=== PATIENT | female | born 1935 | race Caucasian/White ===

== ENCOUNTER 2020-06-23 12:02 | Outpatient (CLI) | payer MEDICARE, SELFPAY ==
--- NOTE | ~2020-06-23 | US_ITS ---
EXAMINATION: US retroperitoneal comp DATE: 06/23/2020 12:43 INDICATION: Hematuria TECHNIQUE: Multiple grayscale and Doppler ultrasound images of the kidneys were obtained. COMPARISON: None. FINDINGS: The right kidney measures 8.5 x 5.2 x 4.6 cm. The left kidney measures 10.2 x 4.3 x 5.2 cm. The kidneys demonstrate increased parenchymal echogenicity. There is no hydronephrosis. The bladder is incompletely distended. IMPRESSION: 1. Medical renal disease. No correlate for hematuria. Reviewed, dictated and finalized at location A.
== END 2020-06-23 12:03 | disposition home or self-care (01) ==
LOC: CHSIMG 12:09
PROVIDERS: PCP Internal Medicine; Visit Provider Internal Medicine
DX: R31.9 Hematuria, unspecified (principal)
CPT/HCPCS: 76770

== ENCOUNTER 2021-02-04 11:03 | Outpatient (NON) | payer MEDICARE, SELFPAY ==
[2021-02-04 11:27] LABS: Basophils Absolute Auto 0.07 K/mm3 (0.00-0.10); Basophils Percent Auto 0.6 % (0.0-1.0); Eosinophils Absolute Auto 0.49 K/mm3 (0.02-0.50); Eosinophils Percent Auto 4.3 % (1.0-6.0); Hematocrit 42.6 % (35.0-42.0); Hemoglobin 14.7 g/dL (11.7-13.8); Immature Granulocyte Absolute 0.03 K/mm3 (0.00-0.00); Immature Granulocyte Percent A 0.3 % (0.0-0.0); Lymphocytes Absolute Auto 3.99 K/mm3 (1.10-4.50); Lymphocytes Percent Auto 35.3 % (18.0-42.0); Mean Corpuscular HGB Conc 34.5 g/dL (32.0-36.0); Mean Corpuscular Hemoglobin 32.7 pg (27.0-31.0); Mean Corpuscular Volume 94.9 fL (78.0-102.0); Mean Platelet Volume 10.4 fl (9.2-11.8); Monocytes Absolute Auto 0.92 K/mm3 (0.10-0.90); Monocytes Percent Auto 8.1 % (2.0-11.0); Neutrophils Absolute Auto 5.8 K/mm3 (1.7-7.2); Neutrophils Percent Auto 51.4 % (50.0-70.0); Platelet Count Result 264 K/mm3 (150-420); Red Blood Count 4.49 M/mm3 (4.20-5.40); Red Cell Distribution Width 13.9 % (11.6-14.4); White Blood Count 11.3 K/mm3 (4.8-10.8)
[2021-02-04 11:56] LABS: Hemoglobin A1C 5.9 % (<5.7)
[2021-02-04 12:08] LABS: Alanine Aminotransferase 27 U/L (14-59); Albumin Level 3.9 g/dL (3.4-5.0); Alkaline Phosphatase 60 U/L (46-116); Anion Gap 9 mmol/L (8-16); Aspartate Amino Transferase 21 U/L (15-37); Bilirubin,Total 0.8 mg/dL (0.00-1.00); Blood Urea Nitrogen 15 mg/dL (7-18); Carbon Dioxide 30 mmol/L (21-32); Chloride 99 mmol/L (98-108); Cholesterol 169 mg/dL (0-200); Creatine Kinase 68 U/L (26-192); Estimated Glomerular Filt Rate 58; Free T4 Free Thyroxine 1.08 ng/dL (0.76-1.46); Glucose 83 mg/dL (70-99); HDL Direct 86 mg/dL (40-60); LDL Cholesterol Calculated 70 mg/dL (<130); Osmolality Calculated 285 mOsm/kg (285-295); Potassium 4.2 mmol/L (3.5-5.1); Sodium 138 mmol/L (136-145); Total Protein 7.1 g/dL (6.4-8.2); Triglycerides 65 mg/dL (0-150)
== END 2021-02-04 11:04 ==
LOC: CHSLAB 11:04
PROVIDERS: Visit Provider Internal Medicine
DX: E78.5 Hyperlipidemia, unspecified (principal); R73.01 Impaired fasting glucose
CPT/HCPCS: 36415; 80053; 80061; 82550; 83036; 84439; 84443; 85025

== ENCOUNTER 2021-02-08 15:57 | Outpatient (NON) | payer MEDICARE, SELFPAY ==
[2021-02-08 16:17] LABS: Add Urine Microscopic? YES; Appearance Urine Cloudy (Clear); Bilirubin Urine Negative (Negative); Blood Urine 3+ (Negative); Color Urine Yellow (Yellow); Glucose Urine UA Negative (Negative); Ketones Urine Negative (Negative); Leukocyte Esterase Ur Trace LEU/UL (Negative); Nitrate Urine Negative (Negative); Protein Urine Trace (Negative); Specific Grav Ur 1.025 (1.010-1.020); Urobilinogen Urine 0.2 mg/dL (0.2-1.0)
[2021-02-08 16:44] LABS: RBC Urine >75 /hpf (0-2); Squamous Epithelial Cell Urine Rare /hpf (Few); WBC Urine 0-3 /hpf (0-3)
[2021-02-08 16:45] LABS: Bacteria Urine Trace /hpf
[2021-02-08 17:04] LABS: MALB Creatinine Ratio 78.8 mg/g (0-30); Microalbumin Urine Random 99.7 mg/L
== END 2021-02-08 15:58 ==
PROVIDERS: Visit Provider Internal Medicine
DX: E78.5 Hyperlipidemia, unspecified (principal); R73.01 Impaired fasting glucose
CPT/HCPCS: 81001; 82043

== ENCOUNTER 2021-02-11 16:00 | Outpatient (CLI) | payer MEDICARE, SELFPAY ==
--- NOTE | ~2021-02-11 | CT_ITS ---
EXAMINATION: CT abdomen pelvis wo/w con DATE: 02/11/2021 16:54 INDICATION: Hematuria TECHNIQUE: Computed tomography (CT) of the abdomen and pelvis was performed without and subsequently with 130 cc Omnipaque 350 intravenous contrast. Automated exposure control and iterative reconstructi on technique were employed. Exam dose: 1222.14 mGy-cm total exam DLP. COMPARISON: January 02, 2017 CT abdomen pelvis with IV contrast material FINDINGS: Fat-containing right foramen of Bochdalek hernia. Emphysematous changes are suggested in the lower lung zones, as well as possible mild changes of usua l interstitial pneumonia. Up to 4.5 cm descending thoracic aortic aneurysm. There is prominent calcification of the ascending a charla. Pacemaker leads are noted in the right atrium and right ventricle. Borderline heart size. No pericard ial or pleural effusion. Small sliding hiatal hernia. The liver, gallbladder, bile ducts, pancreas, pancreatic duct and spleen are unremarkable. Normal morphology of the adrenal glands. Occasional bilateral small renal cysts. No suspicious renal space occupying mass lesion is detected. No apparent filling defect of the renal collecting systems, ureters or urinary bladder. No bladder wa ll thickening. No urinary tract calculus or hydroureteronephrosis is evident. There are numerous diverticula of the sigmoid and descending colon and occasional transverse and asce nding colon diverticula. No CT evidence of diverticulitis. Normal appendix. No bowel obstruction, bow el wall thickening, pneumatosis or intraperitoneal free air is evident. The urinary bladder is unremarkable. Status post hysterectomy. Right hip arthroplasty. There is extensive calcification of the abdominal aorta and iliac arteries. There is calcification at the origins of the renal arteries. No abdominal aortic aneurysm. No intraperitoneal or retroperitoneal or pelvic mass lesion or adenopathy or ascites. Small fat-containing umbilical hernia. Scoliosis and severe degenerative disc disease of the lumbar spine. Grade 1 anterolisthesis at L2-3. Right hip total arthroplasty. IMPRESSION: No cause for hematuria identified Probable small renal cysts Descending thoracic aortic aneurysm Small sliding hiatal hernia Diverticulosis of the left and to a lesser extent right colon; no CT evidence of diverticulitis Status post hysterectomy Status post right hip arthroplasty Reviewed, dictated and finalized at Location A. Reviewed, dictated and finalized at location B. IMPRESSION: No cause for hematuria identified Probable small renal cysts Descending thoracic aortic aneurysm Small sliding hiatal hernia Diverticulosis of the left and to a lesser extent right colon; no CT evidence o f diverticulitis Status post hysterectomy Status post right hip arthroplasty
== END 2021-02-11 16:01 | disposition home or self-care (01) ==
LOC: CHSLAB 16:04
PROVIDERS: PCP Internal Medicine; Visit Provider Internal Medicine
DX: R31.9 Hematuria, unspecified (principal); K57.30 Diverticulosis of large intestine without perforation or abscess without bleeding
CPT/HCPCS: 74178; Q9967

== ENCOUNTER 2021-02-15 10:14 | Outpatient (NON) | payer MEDICARE, SELFPAY ==
[2021-02-15 11:43] LABS: Vitamin B12 786 pg/mL (193-986)
== END 2021-02-15 10:15 ==
PROVIDERS: Visit Provider Internal Medicine
DX: E53.8 Deficiency of other specified B group vitamins (principal); R31.9 Hematuria, unspecified
CPT/HCPCS: 36415; 82607; 88112

== ENCOUNTER 2021-04-28 16:35 | Emergency (ER) | payer MEDICARE, SELFPAY ==
[2021-04-28 17:10] VITALS: BP 168/75; PULSE 77; RESP 16; TEMP 36.6; O2SAT 94
[2021-04-28 17:15] VITALS: PULSE 67
--- NOTE | 2021-04-28 17:15 | ECG_ITS ---
Measurements Intervals [place] Rate: 67 P: [place]: 0 QRS: -33 QRSD: 78 T: 69 QT: 390 QTc: 414 Interpretive Statements ELECTRONIC VENTRICULAR PACEMAKER WITH INHIBTION UNDERLYING ATRIAL FIBRILLATION LEFT AXIS DEVIATION ANTEROSEPTAL INFARCT, AGE INDETERMINATE INFERIOR INFARCT, AGE INDETERMINATE BASELINE ARTIFACT- II, III, AVF ABNORMAL ECG Electronically Signed On 04-28-2021 20:48:43 CDT by Emanuel Brandon D.O.
--- NOTE | 2021-04-28 17:18 | ED.GENADULT ---
HPI - General Adult General Chief complaint: Weakness Stated complaint: sent from [facility] for weakness. Source: patient Mode of arrival: ambulatory Limitations: no limitations History of Present Illness HPI narrative: Regina is an 85F that was sent over from the [facility] for weakness. She states that for the last two weeks she has no zip. She was so weak she could not go to get her pacemaker checked out yesterday. She is not very aware of her health history and does not know why she is on the meds she is on or why she has the pacemaker. She denies headache, vision changes, palpitations, CP, SOB, abdominal pain, nausea, vomiting, diarrhea, constipation, dysuria, hematuria and falls. Despite feeling weak she states that she has been able to feed herself, and ambulate to the toilet using her walker. She also thinks she is able to bath herself. Related Data Home Medications Medication Instructions Recorded Confirmed apixaban [Eliquis] 5 mg PO DAILY 04/28/21 04/28/21 bupropion HCl 100 mg PO DAILY 04/28/21 04/28/21 losartan 50 mg PO DAILY 04/28/21 04/28/21 metoprolol tartrate 25 mg PO BID 04/28/21 04/28/21 multivit with min-folic acid 1 tablet PO DAILY 04/28/21 04/28/21 [Adult One Daily Multivitamin] primidone 50 mg PO HS 04/28/21 04/28/21 rosuvastatin 10 mg PO DAILY 04/28/21 04/28/21 Allergies Allergy/AdvReac Type Severity Reaction Status Date / Time No Known Allergies Allergy Verified 06/11/15 14:52 Review of Systems Constitutional: Constitutional: Denies chills, Reports fatigue, Denies fever(s) and Reports weakness Eyes: Eyes: Reports no additional eye complaints ENT: Reports system reviewed and no additional complaints, except as documented Cardiovascular: Cardiovascular: Reports no additional cardiovascular complaints Respiratory: Respiratory: Reports no additional respiratory complaints Gastrointestinal: Gastrointestinal: Reports no additional gastrointestinal complaints Genitourinary: Genitourinary: Reports no additional female genitourinary complaints Musculoskeletal: Musculoskeletal: Reports no additional musculoskeletal complaints Integumentary/Breasts: Skin/Breast: Reports system reviewed and no additional complaints, except as docu Neurologic: Reports system reviewed and no additional complaints, except as documented Psychiatric: Psychiatric: Reports no additional psychiatric complaints Endocrine: Endocrine: Reports no additional endocrine complaints Hematologic/Lymphatic: Hematologic/Lymphatic: Reports no additional hematologic/lymphatic complaints Allergic/Immunologic: Allergic/Immunologic: Reports no additional allergic/immunologic complaints Exam Const: General: no acute distress Orientation/consciousness: patient oriented x3 HENMT: Head: normal to inspection Other: atrauamtic Eyes: Conjunctivae: conjunctivae normal Pupils: Equal, round and reactive pupils present Neck: Neck: normal visual inspection Chest: Chest palpation & inspection: normal inspection of the chest Resp: Effort & Inspection: normal respiratory effort Auscultation: clear to auscultation bilaterally Cardio: Rate: regular rate Rhythm: regular rhythm Heart sounds: no murmurs GI: Inspection: non-distended GI Palp: Yes Soft to palpation, No Tenderness to palpation present (GI) and No Guarding due to palpation present (GI) : General: Yes no CVA tenderness Skin: General skin exam: normal color Rashes: no rashes Neuro: General: patient oriented x3, moves all extremities, no focal motor deficits and CN's II-XI intact bilaterally Speech: normal speech Other: 5/5 strength in the upper extremities. 5/5 strength in the lower extremities. normal finger to nose. normal rapid alternating movements Extrem: General: normal to inspection Psych: Appearance: grossly normal Mental Status: mental status grossly normal Thought content: Yes Normal thought content present Course Course Emergency Course: ordered labs and E
[2021-04-28 17:39] LABS: Basophils Absolute Auto 0.07 K/mm3 (0.00-0.10); Basophils Percent Auto 0.6 % (0.0-1.0); Eosinophils Absolute Auto 0.43 K/mm3 (0.02-0.50); Eosinophils Percent Auto 3.9 % (1.0-6.0); Hematocrit 42.9 % (35.0-42.0); Hemoglobin 13.8 g/dL (11.7-13.8); Immature Granulocyte Absolute 0.05 K/mm3 (0.00-0.00); Immature Granulocyte Percent A 0.5 % (0.0-0.0); Lymphocytes Absolute Auto 2.69 K/mm3 (1.10-4.50); Lymphocytes Percent Auto 24.6 % (18.0-42.0); Mean Corpuscular HGB Conc 32.2 g/dL (32.0-36.0); Mean Corpuscular Hemoglobin 29.6 pg (27.0-31.0); Mean Corpuscular Volume 91.9 fL (78.0-102.0); Mean Platelet Volume 9.5 fl (9.2-11.8); Monocytes Absolute Auto 0.96 K/mm3 (0.10-0.90); Monocytes Percent Auto 8.8 % (2.0-11.0); Neutrophils Absolute Auto 6.7 K/mm3 (1.7-7.2); Neutrophils Percent Auto 61.6 % (50.0-70.0); Platelet Count Result 270 K/mm3 (150-420); Red Blood Count 4.67 M/mm3 (4.20-5.40); White Blood Count 10.9 K/mm3 (4.8-10.8)
[2021-04-28 17:42] LABS: Appearance Urine Cloudy (Clear); Bilirubin Urine Negative (Negative); Blood Urine 3+ (Negative); Glucose Urine UA Negative (Negative); Ketones Urine Negative (Negative); Leukocyte Esterase Ur Trace (Negative); Nitrate Urine Negative (Negative); Protein Urine 1+ (Negative); Specific Grav Ur 1.025 (1.010-1.020)
[2021-04-28 17:47] LABS: Add Urine Microscopic? YES; Bacteria Urine Trace /hpf; Color Urine Dark Brown (Yellow); RBC Urine >75 /hpf (0-2); Squamous Epithelial Cell Urine Few /hpf (Few)
[2021-04-28 18:05] LABS: Alanine Aminotransferase 25 U/L (14-59); Albumin Level 3.7 g/dL (3.4-5.0); Alkaline Phosphatase 58 U/L (46-116); Anion Gap 9 mmol/L (8-16); Aspartate Amino Transferase 19 U/L (15-37); Bilirubin,Total 0.8 mg/dL (0.00-1.00); Blood Urea Nitrogen 14 mg/dL (7-18); Calcium 9.2 mg/dL (8.5-10.1); Carbon Dioxide 27 mmol/L (21-32); Chloride 99 mmol/L (98-108); Creatine Kinase 64 U/L (26-192); Estimated CRCL calculation 38 ml/min; Estimated Glomerular Filt Rate 52; Glucose 117 mg/dL (70-99); Osmolality Calculated 281 mOsm/kg (285-295); Sodium 135 mmol/L (136-145); Total Protein 7.2 g/dL (6.4-8.2)
[2021-04-28 18:11] LABS: Thyroid Stimulating Hormone 1.27 uIU/mL (0.36-3.74); Troponin I 20.4 ng/L (0.00-60.4)
[2021-04-28] MEDS: NITROFURANTOIN MONOHYD MACROCR 100 MG CAP PO ×2 (18:40→18:50)
[2021-04-28 18:58] VITALS: BP 154/59; PULSE 66; RESP 22; O2SAT 96
== END 2021-04-28 18:50 ==
PROVIDERS: Emergency Provider Family Medicine; PCP Internal Medicine
DX: N39.0 Urinary tract infection, site not specified (principal); E86.0 Dehydration
CPT/HCPCS: 36415; 80053; 81001; 82550; 84443; 84484; 85025; 87086; 93005; 99282; 99284; A9270

== ENCOUNTER 2021-06-16 19:32 | Observation (INO) | payer MEDICARE, SELFPAY ==
[2021-06-16 19:40] VITALS: BP 160/94; PULSE 88; RESP 16; TEMP 36.3; O2SAT 96
--- NOTE | 2021-06-16 19:54 | ECG_ITS ---
Measurements Intervals [place] Rate: 69 P: [place]: 0 QRS: -32 QRSD: 83 T: 83 QT: 420 QTc: 453 Interpretive Statements ELECTRONIC VENTRICULAR PACEMAKER WITH INHIBITION INCOMPLETE RIGHT BUNDLE BRANCH BLOCK BORDERLINE T WAVE ABNORMALITY- ANTERIOR LEADS BASELINE ARTIFACT- II, III, AVL, AVF, V3 NO FURTHER INTERPRETATION IS POSSIBLE BORDERLINE ECG Electronically Signed On 06-17-2021 6:47:42 CDT by Emanuel Brandon D.O.
[2021-06-16 20:19] LABS: Basophils Absolute Auto 0.06 K/mm3 (0.00-0.10); Basophils Percent Auto 0.6 % (0.0-1.0); Eosinophils Absolute Auto 0.31 K/mm3 (0.02-0.50); Eosinophils Percent Auto 3.3 % (1.0-6.0); Immature Granulocyte Absolute 0.04 K/mm3 (0.00-0.00); Immature Granulocyte Percent A 0.4 % (0.0-0.0); Lymphocytes Absolute Auto 2.22 K/mm3 (1.10-4.50); Lymphocytes Percent Auto 23.5 % (18.0-42.0); Mean Corpuscular HGB Conc 33.3 g/dL (32.0-36.0); Mean Corpuscular Hemoglobin 29.7 pg (27.0-31.0); Mean Platelet Volume 9.6 fl (9.2-11.8); Monocytes Absolute Auto 1.05 K/mm3 (0.10-0.90); Monocytes Percent Auto 11.1 % (2.0-11.0); Neutrophils Absolute Auto 5.8 K/mm3 (1.7-7.2); Neutrophils Percent Auto 61.1 % (50.0-70.0); Platelet Count Result 269 K/mm3 (150-420); Red Blood Count 4.72 M/mm3 (4.20-5.40); Red Cell Distribution Width 14.1 % (11.6-14.4); White Blood Count 9.5 K/mm3 (4.8-10.8)
--- NOTE | 2021-06-16 20:20 | ED.GENADULT ---
HPI - General Adult General Chief complaint: Fall Stated complaint: blood in stool Source: patient Mode of arrival: ambulatory Limitations: no limitations History of Present Illness HPI narrative: Regina is an 85F with a PMH of pacemaker (unknown reason why), dementia, HLD, HTN, depression and she is on apixaban (unknown reason why) that presented to the ED from the [facility]. She was found down with blood in the toilet. She does not remember the incident and does not know how she got there. She denies any paint what so ever, nausea, vomiting, GI upset and diarrhea. Related Data Home Medications Medication Instructions Recorded Confirmed apixaban [Eliquis] 5 mg PO DAILY 04/28/21 06/16/21 bupropion HCl 100 mg PO DAILY 04/28/21 06/16/21 losartan 50 mg PO DAILY 04/28/21 06/16/21 metoprolol tartrate 25 mg PO BID 04/28/21 06/16/21 multivit with min-folic acid 1 tablet PO DAILY 04/28/21 06/16/21 [Adult One Daily Multivitamin] primidone 50 mg PO HS 04/28/21 06/16/21 rosuvastatin 10 mg PO DAILY 04/28/21 06/16/21 Allergies Allergy/AdvReac Type Severity Reaction Status Date / Time No Known Allergies Allergy Verified 06/11/15 14:52 Review of Systems Constitutional: Constitutional: Reports no additional constitutional complaints Eyes: Eyes: Reports no additional eye complaints ENT: Reports system reviewed and no additional complaints, except as documented Cardiovascular: Cardiovascular: Reports no additional cardiovascular complaints Respiratory: Respiratory: Reports no additional respiratory complaints Gastrointestinal: Gastrointestinal: Reports no additional gastrointestinal complaints Genitourinary: Genitourinary: Reports no additional female genitourinary complaints Musculoskeletal: Musculoskeletal: Reports no additional musculoskeletal complaints Integumentary/Breasts: Skin/Breast: Reports system reviewed and no additional complaints, except as docu Neurologic: Reports system reviewed and no additional complaints, except as documented Psychiatric: Psychiatric: Reports no additional psychiatric complaints Endocrine: Endocrine: Reports no additional endocrine complaints Hematologic/Lymphatic: Hematologic/Lymphatic: Reports no additional hematologic/lymphatic complaints Allergic/Immunologic: Allergic/Immunologic: Reports no additional allergic/immunologic complaints Exam Const: General: no acute distress and confusion Other: oriented to person and place but now when or why she is hear. HENMT: Head: normal to inspection Other: atrauamtic Eyes: Conjunctivae: conjunctivae normal Pupils: Equal, round and reactive pupils present Neck: Neck: normal visual inspection Other: full active ROM without pain. No midline tenderness Chest: Chest palpation & inspection: normal inspection of the chest Resp: Effort & Inspection: normal respiratory effort Auscultation: clear to auscultation bilaterally Cardio: Rate: regular rate Rhythm: regular rhythm Heart sounds: no murmurs GI: Inspection: non-distended GI Palp: Yes Soft to palpation, No Tenderness to palpation present (GI) and No Guarding due to palpation present (GI) Skin: General skin exam: normal color Rashes: no rashes Neuro: General: patient oriented x3 and moves all extremities Extrem: General: normal to inspection Psych: Appearance: grossly normal Mental Status: mental status grossly normal Course Course Emergency Course: Regina was evaluated. Ordered EKG and labs. EKG showed an iregular rhythm with a rate of 69, and electronic ventricular pacemaker Labs were largely unremarkable except an elevated BNP but she does not appear fluid overloaded. UA was consistent with hemorrhagic UTI. She will be admitted for syncope and collapse as well as UTI. UTI -Ceftriaxone 1g Syncope -cardiac vs vasovagal vs dementia -placed on telemetry HTN -continue losartan and metoprolol Mood -continue bupropion as she appears to be doing well
[2021-06-16 20:30] LABS: INR 1.2; Prothrombin Time 12.4 Seconds (9.50-12.10)
[2021-06-16 20:42] LABS: Alanine Aminotransferase 35 U/L (14-59); Albumin Level 3.6 g/dL (3.4-5.0); Alkaline Phosphatase 63 U/L (46-116); Anion Gap 12 mmol/L (8-16); Aspartate Amino Transferase 36 U/L (15-37); Bilirubin,Total 0.8 mg/dL (0.00-1.00); Blood Urea Nitrogen 12 mg/dL (7-18); Calcium 8.9 mg/dL (8.5-10.1); Carbon Dioxide 26 mmol/L (21-32); Chloride 99 mmol/L (98-108); Estimated CRCL calculation 40 ml/min; Estimated Glomerular Filt Rate > 60; Glucose 109 mg/dL (70-99); NT Pro B Type Natriuretic Pept 1200 pg/mL (0-450); Osmolality Calculated 284 mOsm/kg (285-295); Potassium 3.8 mmol/L (3.5-5.1); Sodium 137 mmol/L (136-145); Troponin I 21.2 ng/L (0.00-60.4)
[2021-06-16 20:56] LABS: Appearance Urine Cloudy (Clear); Bilirubin Urine 1+ (Negative); Blood Urine 3+ (Negative); Glucose Urine UA Negative (Negative); Ketones Urine 2+ (Negative); Leukocyte Esterase Ur Trace (Negative); Nitrate Urine Positive (Negative); Protein Urine 3+ (Negative); Specific Grav Ur 1.025 (1.010-1.020); pH Urine 6.5 (5.0-8.0)
[2021-06-16 21:02] LABS: Add Urine Microscopic? YES; Color Urine Dark Red (Yellow)
[2021-06-16 21:03] LABS: Bacteria Urine 2+ /hpf; RBC Urine >75 /hpf (0-2); Squamous Epithelial Cell Urine None seen /hpf (Few)
[2021-06-16 21:05] LABS: Amphetamine Screen Urine Negative (Negative); Barbiturate Screen Urine Positive (Negative); Benzodiazepines Screen Urine Negative (Negative); Cannabinoid Screen Urine Negative (Negative); Cocaine Screen Urine Negative (Negative); Methadone Screen Urine Negative (Negative); Opiate Screen Urine Negative (Negative); Phencyclidine Screen Urine Negative (Negative)
[2021-06-16 21:17] VITALS: BP 163/70; PULSE 67; O2SAT 95
[2021-06-16 22:29] VITALS: BP 167/82; PULSE 63; RESP 16; O2SAT 96
[2021-06-16 22:45] VITALS: PULSE 84; RESP 20; O2SAT 97
[2021-06-16 23:15] VITALS: BMI 25.9
[2021-06-17] VITALS: BP 163/89; PULSE 73; PULSE 84; RESP 20; TEMP 36; O2SAT 97
--- NOTE | 2021-06-17 00:25 | ADMGEN ---
This patient, Regina Ghosh, was admitted to 2nd Floor Room 226-2. Patient oriented to hospital policies and general routines including ID bracelet, bed and alarms, visiting hours, pain management, procedures, bathroom and other care routines, personal items, smoking policy, room service/diet, and visiting hours. Information on how to activate the Rapid Response Team has been discussed. Patient is encouraged to report perceived risks to care and to ask questions if she does not understand what she is told or what she should do.
[2021-06-17 04:00] VITALS: PULSE 71
--- NOTE | 2021-06-17 06:35 | PC.NURSE ---
Patient came to the unit at 10:30 pm. Completed admission, settled her down for the night. She was able to sleep most of the night, waking up briefly during rounding, but going back to sleep as soon as nurse left. Patient reports that she is comfortable, and is not in any pain. Bedside commode is available, but she has not needed to use it yet tonight.
[2021-06-17 08:00] VITALS: BP 157/77; PULSE 90; RESP 18; TEMP 36.3; O2SAT 95
[2021-06-17 08:25] LABS: Basophils Absolute Auto 0.08 K/mm3 (0.00-0.10); Basophils Percent Auto 0.8 % (0.0-1.0); Eosinophils Absolute Auto 0.44 K/mm3 (0.02-0.50); Eosinophils Percent Auto 4.4 % (1.0-6.0); Hemoglobin 14.7 g/dL (11.7-13.8); Immature Granulocyte Absolute 0.03 K/mm3 (0.00-0.00); Immature Granulocyte Percent A 0.3 % (0.0-0.0); Lymphocytes Absolute Auto 2.38 K/mm3 (1.10-4.50); Lymphocytes Percent Auto 23.6 % (18.0-42.0); Mean Corpuscular HGB Conc 32.7 g/dL (32.0-36.0); Mean Corpuscular Hemoglobin 29.7 pg (27.0-31.0); Mean Corpuscular Volume 90.9 fL (78.0-102.0); Mean Platelet Volume 9.7 fl (9.2-11.8); Monocytes Absolute Auto 0.93 K/mm3 (0.10-0.90); Monocytes Percent Auto 9.2 % (2.0-11.0); Neutrophils Absolute Auto 6.2 K/mm3 (1.7-7.2); Neutrophils Percent Auto 61.7 % (50.0-70.0); Platelet Count Result 249 K/mm3 (150-420); Red Blood Count 4.95 M/mm3 (4.20-5.40); Red Cell Distribution Width 14.3 % (11.6-14.4); White Blood Count 10.1 K/mm3 (4.8-10.8)
[2021-06-17 09:15] VITALS: PULSE 90
[2021-06-17] MEDS: ROSUVASTATIN 10 MG TABLET PO (09:15)
[2021-06-17] MEDS: METOPROLOL TARTRATE 25 MG TABLET PO ×2 (09:15→21:31)
[2021-06-17] MEDS: THERAPEUTIC MULTIVITAMINS/MINERALS TAB (*BKC) 1 TABLET PO (09:15)
[2021-06-17] MEDS: LOSARTAN POTASSIUM 50 MG TABLET PO (09:15)
[2021-06-17] MEDS: buPROPion HCL SR (12HR) 100 MG TABCR PO ×2 (10:02→21:31)
--- NOTE | 2021-06-17 11:58 | PM.SD2 ---
Same Day Admit/Disch: HPI History of Present Illness Chief complaint: syncope hemorragic cystitis <WILBERTO West - Last Filed: 06/17/21 14:30> Narrative: Regina Ghosh is a 85 year old female that presented to our emergency department status post fall with hematuria. Patient has a past medical history of dementia, hypertension, hyperlipidemia, depression, history of DVT and A. fib. Patient notes that she was on the toilet and fell she denies hitting her head or injuring herself. She is unsure what caused her to fall but she does remember falling. Patient vital sign 96.8, 84, 20, 97, 163/89, WBCs 10.1 hemoglobin 14.7 hematocrit 45.0, platelets, INR 1.2, sodium 137, potassium 3.8,, BUN 12, creatinine 0.87, glucose 109, liver function tests within normal limits BNP 1200, UA with protein, ketone, blood, nitrates, bili, urobilinogen, leukocyte esterase, RBCs, WBCs, bacteria, echo placed with incomplete right bundle branch block heart rate of 69 .the patient denies SOB, CP, palpitation, extremity numbness, lightheadedness, dizziness, constipation, diarrhea, chills, or fever. Disposition [facility] the [facility]assisted living Observation Time spent 60 minutes Physical therapy recommends the patient be discharged to rehab versus her assisted living <WILBERTO West - Last Filed: 06/17/21 14:30> [facility] Social History Social History: Social History Smoking status: Former smoker Tobacco type: cigarettes Second hand tobacco smoke exposure: No Alcohol intake: current Drinks per week: 6 Substance use: never Substance use type: does not use Gender identity (if verbalized by the patient): Female Spiritual care concerns: No <WILBERTO West - Last Filed: 06/17/21 14:30> Same Day Admit/Disch: Med Pre-admit Medications Home Medications: Home Medications Medication Instructions Recorded Confirmed Type apixaban [Eliquis] 5 mg PO DAILY 04/28/21 06/16/21 History bupropion HCl 100 mg PO BID 04/28/21 06/17/21 History losartan 50 mg PO DAILY 04/28/21 06/16/21 History metoprolol tartrate 25 mg PO BID 04/28/21 06/16/21 History multivit with min-folic acid 1 tablet PO DAILY 04/28/21 06/16/21 History [Adult One Daily Multivitamin] primidone 50 mg PO HS 04/28/21 06/16/21 History rosuvastatin 10 mg PO DAILY 04/28/21 06/16/21 History <WILBERTO West - Last Filed: 06/17/21 14:30> Exam Narrative: GENERAL: This is a well-nourished, well-developed patient, in no apparent distress. HEAD: normocephalic, atraumatic. EYES: PERRL. Sclera clear/white. Vision is grossly intact. EARS: External ears normal, auditory canals clear and without drainage, TMs normal without perforation. Hearing grossly intact. NOSE: External nose normal with no obvious nasal discharge, nares without redness, no rhinorrhea. THROAT: Mucous membranes moist, posterior pharynx clear. NECK: Neck supple, non-tender without lymphadenopathy, masses or thyromegaly. CARDIOVASCULAR: Regular rate and rhythm without murmurs, gallops, or rubs. RESPIRATORY: Clear to auscultation. Breath sounds equal bilaterally. No wheezes, rales, or rhonchi. GASTROINTESTINAL: Abdomen soft, non-tender, nondistended. Bowel sounds are active. No hepato-splenomegaly, or palpable masses. No guarding. SKIN: warm, intact with no suspicious lesions or rash, good texture and turgor. NEURO: awake, alert, and oriented to person, place and time. There were no obvious focal neurologic abnormalities. Steady gait EXTREMITIES: Normal range of motion. No edema. No calf tenderness. Negative Homans sign bilaterally. BACK: Nontender without deformity or crepitance. No flank tenderness. <WILBERTO West - Last Filed: 06/17/21 14:30> DS: Data Data Completed and Pending Labs on day of discharge: Labs from last 24 hours 06/17/21 06/16/21 06/16/21 08:15 20:14 20:14 WBC 10.1 RB
[2021-06-17 16:00] VITALS: BP 147/84; PULSE 72; RESP 16; TEMP 36.7; O2SAT 95
--- NOTE | 2021-06-17 19:30 | PC.NURSE ---
Patient sitting up in chair. No episodes of syncope or hematuria at this time.
--- NOTE | 2021-06-17 20:30 | PC.NURSE ---
Patient sitting up in chair. No episodes of syncope or hematuria.
[2021-06-17 21:31] VITALS: PULSE 64
[2021-06-17] MEDS: PRIMIDONE 50 MG TABLET PO (21:31)
--- NOTE | 2021-06-17 21:35 | PC.NURSE ---
Patient assisted to be with walker and assist of 1. No hematuria or episodes of syncope.
--- NOTE | 2021-06-17 22:36 | PC.NURSE ---
Patient resting in bed. No episodes of hematuria or syncope.
--- NOTE | 2021-06-17 23:02 | PC.NURSE ---
Bedside report completed. Updated board and pulled patient up in bed. Patient reported that she was not in pain, and was comfortable in bed.
[2021-06-18] VITALS: BP 137/60; PULSE 71; RESP 18; TEMP 37.1; O2SAT 96
--- NOTE | 2021-06-18 01:43 | PC.NURSE ---
Patient sleeping comfortably during rounds.
--- NOTE | 2021-06-18 02:34 | PC.NURSE ---
Patient continues to sleep comfortably on her side.
--- NOTE | 2021-06-18 03:30 | PC.NURSE ---
During rounding, patient was found sitting on the side of the bed. When asked, she reported that she needed to go to the bathroom, but was trying to decide how to do that. She was reminded to use the call light before getting up, to make sure she was safe. Patient stated that she would. Patient used the walker to ambulate to the bedside commode. She urinated approximately 300 mL of urine, that was wine-colored. Patient remarked upon the blood, and stated that that was what she has been dealing with. Patient returned to the bed, and was made comfortable. Patient was going back to sleep.
[2021-06-18 05:38] LABS: Hematocrit 40.8 % (35.0-42.0); Hemoglobin 13.5 g/dL (11.7-13.8); Mean Corpuscular HGB Conc 33.1 g/dL (32.0-36.0); Mean Corpuscular Hemoglobin 29.7 pg (27.0-31.0); Mean Corpuscular Volume 89.7 fL (78.0-102.0); Mean Platelet Volume 9.4 fl (9.2-11.8); Platelet Count Result 239 K/mm3 (150-420); Red Blood Count 4.55 M/mm3 (4.20-5.40); Red Cell Distribution Width 14.3 % (11.6-14.4); White Blood Count 9.3 K/mm3 (4.8-10.8)
[2021-06-18 05:52] LABS: Anion Gap 10 mmol/L (8-16); Blood Urea Nitrogen 9 mg/dL (7-18); Carbon Dioxide 27 mmol/L (21-32); Chloride 102 mmol/L (98-108); Estimated CRCL calculation 45 ml/min; Estimated Glomerular Filt Rate > 60; Glucose 112 mg/dL (70-99); Osmolality Calculated 287 mOsm/kg (285-295); Potassium 3.5 mmol/L (3.5-5.1); Sodium 139 mmol/L (136-145)
--- NOTE | 2021-06-18 06:38 | PC.NURSE ---
Patient slept well last night. She was only up once to use the bedside commode, and went right back to sleep after returning to bed. Patient was able to walk with the walker, although she had some difficulty initially standing up on her own. She appears to be somewhat weak and unsteady. Patient is still sleeping soundly, and appears to be comfortable.
--- NOTE | 2021-06-18 07:46 | P.DS_ITS ---
DS: Admitting Diagnosis Admitting Diagnosis UTI, hemorrhagic cystitis <WILBERTO West - Last Filed: 06/18/21 07:54> DS: Discharge Diagnosis Discharge Diagnosis (1) Acute hemorrhagic cystitis: Code(s): N30.01 - Acute cystitis with hematuria <MARITZA WestC - Last Filed: 06/18/21 07:54> Status: Acute <WILBERTO West - Last Filed: 06/18/21 07:54> Assessment and Plan: * History of hematuria 04/28/2021 and today * Possibly secondary to the use of anticoagulant versus infection versus cancer * Anticoagulant discontinued * Patient hemoglobin hematocrit 14.7/45.0 today 13.5/40.8 <WILBERTO West - Last Filed: 06/18/21 07:54> (2) DVT (deep venous thrombosis): Code(s): I82.409 - Acute embolism and thrombosis of unspecified deep veins of unspecified lower extremity <WILBERTO West - Last Filed: 06/18/21 07:54> Status: Acute <WILBERTO West - Last Filed: 06/18/21 07:54> Assessment and Plan: * Patient previously on Eliquis * Discontinued use of eliquis and start tylenol per pcp * <WILBERTO West - Last Filed: 06/18/21 07:54> (3) Afib: Code(s): I48.91 - Unspecified atrial fibrillation <WILBERTO West - Last Filed: 06/18/21 07:54> Status: Acute <WILBERTO West - Last Filed: 06/18/21 07:54> Assessment and Plan: * Eliquis discontinued will start aspirin 325 daily * HAS-BLED three-point high risk for major bleed * Patient's primary care physician Dr. Dennis will reevaluate on next visit <WILBERTO West - Last Filed: 06/18/21 07:54> (4) HLD (hyperlipidemia): Code(s): E78.5 - Hyperlipidemia, unspecified <WILBERTO West - Last Filed: 06/18/21 07:54> Status: Acute <WILBERTO West - Last Filed: 06/18/21 07:54> Assessment and Plan: * Continue statins <WILBERTO West - Last Filed: 06/18/21 07:54> (5) HTN (hypertension): Code(s): I10 - Essential (primary) hypertension <Hyun Clark WILBERTO - Last Filed: 06/18/21 07:54> Status: Acute <WILBERTO West - Last Filed: 06/18/21 07:54> Assessment and Plan: * Stable * Continue losartan 50 mg and metoprolol 25 mg twice daily <Hyun Clark WILBERTO - Last Filed: 06/18/21 07:54> (6) UTI (urinary tract infection): Code(s): N39.0 - Urinary tract infection, site not specified <Hyun Clark WILBERTO - Last Filed: 06/18/21 07:54> Status: Acute <WILBERTO West - Last Filed: 06/18/21 07:54> Assessment and Plan: * UA with blood, nitrate, leukocyte Estrace, RBCs and WBCs with bacteria * Patient received Rocephin IV will discharge with cefdinir 300 mg x 10 days * Urine culture pending <Hyun Clark WILBERTO - Last Filed: 06/18/21 07:54> DS: Summary Hospital Course Reason for hospitalization: UTI with hematuria <Hyun Clark WILBERTO - Last Filed: 06/18/21 07:54> Hospital Course: Regina Ghosh is a 85 year old female that presented to our emergency department status post fall with hematuria. Patient has a past medical history of dementia, hypertension, hyperlipidemia, depression, history of DVT and A. fib. Patient notes that she was on the toilet and fell she denies hitting her head or injuring herself. She is unsure what caused her to fall but she does remember falling. Patient vital sign 96.8, 84, 20, 97, 163/89, WBCs 10.1 hemoglobin 14.7 hematocrit 45.0, platelets, INR 1.2, sodium 137, potassium 3.8,, BUN 12, crea
--- NOTE | 2021-06-18 07:46 | PM.DS ---
DS: Admitting Diagnosis Admitting Diagnosis UTI, hemorrhagic cystitis <WILBERTO West - Last Filed: 06/18/21 07:54> DS: Discharge Diagnosis Discharge Diagnosis (1) Acute hemorrhagic cystitis: Code(s): N30.01 - Acute cystitis with hematuria <WILBERTO West - Last Filed: 06/18/21 07:54> Status: Acute <WILBERTO West - Last Filed: 06/18/21 07:54> Assessment and Plan: History of hematuria 04/28/2021 and today Possibly secondary to the use of anticoagulant versus infection versus cancer Anticoagulant discontinued Patient hemoglobin hematocrit 14.7/45.0 today 13.5/40.8 <WILBERTO West - Last Filed: 06/18/21 07:54> (2) DVT (deep venous thrombosis): Code(s): I82.409 - Acute embolism and thrombosis of unspecified deep veins of unspecified lower extremity <WILBERTO West - Last Filed: 06/18/21 07:54> Status: Acute <WILBERTO West - Last Filed: 06/18/21 07:54> Assessment and Plan: Patient previously on Eliquis Discontinued use of eliquis and start tylenol per pcp <WILBERTO West - Last Filed: 06/18/21 07:54> (3) Afib: Code(s): I48.91 - Unspecified atrial fibrillation <WILBERTO West - Last Filed: 06/18/21 07:54> Status: Acute <WILBERTO West - Last Filed: 06/18/21 07:54> Assessment and Plan: Eliquis discontinued will start aspirin 325 daily HAS-BLED three-point high risk for major bleed Patient's primary care physician Dr. Dennis will reevaluate on next visit <WILBERTO West - Last Filed: 06/18/21 07:54> (4) HLD (hyperlipidemia): Code(s): E78.5 - Hyperlipidemia, unspecified <WILBERTO West - Last Filed: 06/18/21 07:54> Status: Acute <Hyun Clark WILBERTO - Last Filed: 06/18/21 07:54> Assessment and Plan: Continue statins <Hyun Clark WILBERTO - Last Filed: 06/18/21 07:54> (5) HTN (hypertension): Code(s): I10 - Essential (primary) hypertension <Hyun Clark WILBERTO - Last Filed: 06/18/21 07:54> Status: Acute <Hyun Clark WILBERTO - Last Filed: 06/18/21 07:54> Assessment and Plan: Stable Continue losartan 50 mg and metoprolol 25 mg twice daily <Hyun MillsCLEVE UriasBogdan - Last Filed: 06/18/21 07:54> (6) UTI (urinary tract infection): Code(s): N39.0 - Urinary tract infection, site not specified <Hyun MillsZiggy Clark MARITZAAntonia - Last Filed: 06/18/21 07:54> Status: Acute <Hyun Clark WILBERTO - Last Filed: 06/18/21 07:54> Assessment and Plan: UA with blood, nitrate, leukocyte Estrace, RBCs and WBCs with bacteria Patient received Rocephin IV will discharge with cefdinir 300 mg x 10 days Urine culture pending <Hyun Clark WILBERTO - Last Filed: 06/18/21 07:54> DS: Summary Hospital Course Reason for hospitalization: UTI with hematuria <Abdichely CLEVE OrtizEliazarAntonia - Last Filed: 06/18/21 07:54> Hospital Course: Regina Ghosh is a 85 year old female that presented to our emergency department status post fall with hematuria. Patient has a past medical history of dementia, hypertension, hyperlipidemia, depression, history of DVT and A. fib. Patient notes that she was on the toilet and fell she denies hitting her head or injuring herself. She is unsure what caused her to fall but she does remember falling. Patient vital sign 96.8, 84, 20, 97, 163/89, WBCs 10.1 hemoglobin 14.7 hematocrit 45.0, platelets, INR 1.2, sodium 137, potassium 3.8,, BUN 12, creatinine 0.87, glucose 109, liver function tests within normal limits BNP 1200, UA with protein, ketone, blood, nitrates, bili, urobilinogen, leukocyte esterase, RBCs, WBCs, bacteria, echo placed with incomplete right bundle branch block heart rate of 69 .the patient denies SOB, CP, palpitation, extremity numbness, lightheadedness, dizziness, co
[2021-06-18 08:00] VITALS: BP 148/72; PULSE 79; RESP 16; TEMP 37.6; O2SAT 96
[2021-06-18 08:20] VITALS: PULSE 79
[2021-06-18] MEDS: LOSARTAN POTASSIUM 50 MG TABLET PO (08:20)
[2021-06-18] MEDS: METOPROLOL TARTRATE 25 MG TABLET PO (08:20)
[2021-06-18] MEDS: buPROPion HCL SR (12HR) 100 MG TABCR PO (08:20)
[2021-06-18] MEDS: THERAPEUTIC MULTIVITAMINS/MINERALS TAB (*BKC) 1 TABLET PO (08:20)
[2021-06-18] MEDS: ROSUVASTATIN 10 MG TABLET PO (08:21)
[2021-06-18] MEDS: CEFDINIR 300 MG CAPSULE PO (10:49)
--- NOTE | 2021-06-18 14:18 | PC.NURSE ---
Pre-screener for [facility] arrived to evaluate patient.
--- NOTE | 2021-06-18 14:25 | PC.NURSE ---
Report called to Sangeeta springer at [facility] in [place].
--- NOTE | 2021-06-18 15:25 | PC.NURSE ---
Patient discharged to [facility] for rehab to home. [facility] staff transported via from hospital to facility across the street. All personal belongings sent with patient to snf facility.
== END 2021-06-18 15:25 ==
LOC: CHSED 19:33 → CHS2ND 22:13
PROVIDERS: Nurse Practitioner; Admitting Provider Family Medicine; Emergency Provider Family Medicine; PCP Internal Medicine; Visit Provider Family Medicine
DX: N30.01 Acute cystitis with hematuria (principal); R55 Syncope and collapse; I48.20 Chronic atrial fibrillation, unspecified; I10 Essential (primary) hypertension; E78.5 Hyperlipidemia, unspecified; F32.9 Major depressive disorder, single episode, unspecified; F03.90 Unspecified dementia, unspecified severity, without behavioral disturbance, psychotic disturbance, mood disturbance, and anxiety; Z86.718 Personal history of other venous thrombosis and embolism; Z95.0 Presence of cardiac pacemaker; Z79.01 Long term (current) use of anticoagulants; Z87.891 Personal history of nicotine dependence; Z91.81 History of falling; Z79.899 Other long term (current) drug therapy
CPT/HCPCS: 36415; 51701; 80048; 80053; 80307; 81001; 83880; 84484; 85025; 85027; 85610; 87086; 93005; 96365; 97161; 97165; 99285; A9270; G0378; J0696

== ENCOUNTER 2021-09-17 20:19 | Outpatient (NON) | payer MEDICARE, SELFPAY ==
[2021-09-17 21:08] LABS: Add Urine Microscopic? YES; Appearance Urine Clear (Clear); Bilirubin Urine Negative (Negative); Blood Urine 3+ (Negative); Glucose Urine UA Negative (Negative); Ketones Urine Negative (Negative); Leukocyte Esterase Ur Negative (Negative); Nitrate Urine Negative (Negative); Protein Urine 2+ (Negative)
[2021-09-17 21:20] LABS: Color Urine Amber (Yellow); Squamous Epithelial Cell Urine Few /hpf (Few); Transitional Epi Cells Urine Few /hpf; WBC Urine 0-3 /hpf (0-3)
[2021-09-17 21:21] LABS: Bacteria Urine Trace /hpf
== END 2021-09-17 20:20 | disposition home or self-care (01) ==
LOC: CHSLAB 20:35
PROVIDERS: PCP Internal Medicine; Visit Provider Internal Medicine
DX: N39.0 Urinary tract infection, site not specified (principal)
CPT/HCPCS: 81001; 87086; 87088

== ENCOUNTER 2021-09-21 06:30 | Outpatient (NON) | payer MEDICARE, SELFPAY ==
[2021-09-21 06:48] LABS: Basophils Absolute Auto 0.08 K/mm3 (0.00-0.10); Basophils Percent Auto 0.7 % (0.0-1.0); Eosinophils Absolute Auto 0.43 K/mm3 (0.02-0.50); Eosinophils Percent Auto 3.7 % (1.0-6.0); Hematocrit 40.1 % (35.0-42.0); Hemoglobin 12.8 g/dL (11.7-13.8); Immature Granulocyte Absolute 0.08 K/mm3 (0.00-0.00); Immature Granulocyte Percent A 0.7 % (0.0-0.0); Lymphocytes Absolute Auto 2.14 K/mm3 (1.10-4.50); Lymphocytes Percent Auto 18.2 % (18.0-42.0); Mean Corpuscular HGB Conc 31.9 g/dL (32.0-36.0); Mean Corpuscular Volume 90.9 fL (78.0-102.0); Mean Platelet Volume 10.7 fl (9.2-11.8); Monocytes Absolute Auto 0.96 K/mm3 (0.10-0.90); Monocytes Percent Auto 8.2 % (2.0-11.0); Neutrophils Absolute Auto 8.1 K/mm3 (1.7-7.2); Neutrophils Percent Auto 68.5 % (50.0-70.0); Platelet Count Result 266 K/mm3 (150-420); Red Blood Count 4.41 M/mm3 (4.20-5.40); Red Cell Distribution Width 16.8 % (11.6-14.4); White Blood Count 11.8 K/mm3 (4.8-10.8)
[2021-09-21 06:54] LABS: Anion Gap 10 mmol/L (8-16); Blood Urea Nitrogen 15 mg/dL (7-18); Calcium 8.7 mg/dL (8.5-10.1); Carbon Dioxide 29 mmol/L (21-32); Chloride 101 mmol/L (98-108); Estimated Glomerular Filt Rate 44; Glucose 102 mg/dL (70-99); Osmolality Calculated 290 mOsm/kg (285-295); Potassium 4.3 mmol/L (3.5-5.1); Sodium 140 mmol/L (136-145)
[2021-09-21 11:47] LABS: Add Urine Microscopic? YES; Appearance Urine Sl Cloudy (Clear); Bilirubin Urine Negative (Negative); Blood Urine 3+ (Negative); Color Urine Yellow (Yellow); Glucose Urine UA Negative (Negative); Ketones Urine Negative (Negative); Leukocyte Esterase Ur Trace (Negative); Nitrate Urine Negative (Negative); Protein Urine 1+ (Negative); Urobilinogen Urine 0.2 mg/dL (0.2-1.0); pH Urine 6.5 (5.0-8.0)
[2021-09-21 11:55] LABS: Bacteria Urine 2+ /hpf; RBC Urine >75 /hpf (0-2); Squamous Epithelial Cell Urine Few /hpf (Few)
[2021-09-21 11:56] LABS: Mucus Urine Few /lpf
== END 2021-09-21 06:31 | disposition home or self-care (01) ==
LOC: CHSLAB 06:33
PROVIDERS: Visit Provider Internal Medicine
DX: Z79.899 Other long term (current) drug therapy (principal); N39.0 Urinary tract infection, site not specified
CPT/HCPCS: 36415; 80048; 81001; 85025; 88108; 88112

== ENCOUNTER 2021-09-30 21:05 | Emergency (ER) | payer MEDICARE, SELFPAY ==
--- NOTE | ~2021-09-30 | XR_ITS ---
EXAMINATION: XR knee RT 2V EXAM DATE: 09/30/2021 21:53 INDICATION: RT knee pain after falling out of chair. limited movement . TECHNIQUE: Frontal and lateral projections of the right knee. There is no prior study for compariso n. FINDINGS: There is acute closed posttraumatic moderately displaced and angulated right radial distal metaphyseal fracture, just above the arthroplasty hardware. There is a joint hemarthrosis. Scattered arterial sclerosis. IMPRESSION: Acute right distal femoral metaphyseal fracture above arthroplasty hardware. Reviewed, dictated and finalized at location A. [facility]
--- NOTE | ~2021-09-30 | XR_ITS ---
EXAMINATION: XR hip RT 2V w AP pelvis EXAM DATE: 09/30/2021 21:53 INDICATION: pt fell today w. pain @ RT side with limited movement. TECHNIQUE: Right hip frontal, crosstable lateral projections for interpretation. Frontal projection p yi. Comparison is made to prior examination from 08/02/2013. FINDINGS: There is right hip arthroplasty in position. There are no acute fractures or dislocations i dentified. Sacrum, sacroiliac joints, sacral arcuate lines are intact. There is no subcutaneous gas. Advanced lumbar spondylosis, moderate abdominal aortic arteriosclerosis. There are no radiopaque f oreign bodies. IMPRESSION: No acute osseous findings. Reviewed, dictated and finalized at location A. [facility] IMPRESSION: No acute osseous findings.
[2021-09-30 21:10] VITALS: BP 106/83; PULSE 95; RESP 22; TEMP 36.4; O2SAT 100
[2021-09-30] MEDS: KETOROLAC 30 MG/ML VIAL (*BKC) IV PUSH (21:24)
[2021-09-30] MEDS: MORPHINE SULFATE (*CRX) 4 MG/ML INJ IV PUSH (21:50)
[2021-09-30] MEDS: SODIUM CHLORIDE 0.9% IV 1,000 ML 999 ML IV CONT (21:55)
[2021-09-30 22:04] LABS: Basophils Absolute Auto 0.09 K/mm3 (0.00-0.10); Basophils Percent Auto 0.7 % (0.0-1.0); Eosinophils Absolute Auto 0.41 K/mm3 (0.02-0.50); Eosinophils Percent Auto 3.2 % (1.0-6.0); Hematocrit 41.8 % (35.0-42.0); Hemoglobin 12.9 g/dL (11.7-13.8); Immature Granulocyte Absolute 0.09 K/mm3 (0.00-0.00); Immature Granulocyte Percent A 0.7 % (0.0-0.0); Lymphocytes Absolute Auto 1.97 K/mm3 (1.10-4.50); Lymphocytes Percent Auto 15.6 % (18.0-42.0); Mean Corpuscular HGB Conc 30.9 g/dL (32.0-36.0); Mean Corpuscular Hemoglobin 28.8 pg (27.0-31.0); Mean Corpuscular Volume 93.3 fL (78.0-102.0); Mean Platelet Volume 9.7 fl (9.2-11.8); Monocytes Absolute Auto 0.96 K/mm3 (0.10-0.90); Monocytes Percent Auto 7.6 % (2.0-11.0); Neutrophils Absolute Auto 9.1 K/mm3 (1.7-7.2); Neutrophils Percent Auto 72.2 % (50.0-70.0); Platelet Count Result 390 K/mm3 (150-420); Red Blood Count 4.48 M/mm3 (4.20-5.40); Red Cell Distribution Width 16.4 % (11.6-14.4); White Blood Count 12.7 K/mm3 (4.8-10.8)
--- NOTE | 2021-09-30 22:05 | ED.LOWEXIN ---
HPI - Extremity Injury (Lower) General Chief Complaint: Extremity Injury, Lower Stated Complaint: AMB Source: patient and EMS Mode of arrival: EMS Limitations: no limitations History of Present Illness HPI Narrative: this is an 85-year-old prison patient the presents to the emergency department via EMS after she sustained a fall out of her wheelchair earlier this evening at [facility] causing pain swelling in her right knee. The patient apparently was in her wheelchair and fell out causing injury to her right knee. The patient is alert and oriented x1 has a history of dementia has a history of atrial fibrillation but is currently off any anticoagulation except for full-dose aspirin, also history of hypertension hyperlipidemia. The patient has a history of knee arthroplasty on the right along with some arthroplasty of her right hip. Patient has no fever chills no shortness of breath no chest pain no other injuries no back pain no hip pain. complaint: knee injury Onset (ago): hour(s) Injury: Right: knee ( swelling and pain) Place: other ( prison) Severity: severe Severity scale (1-10): 8 Relieving factors: immobilization Exacerbating factors: movement and palpation Context: fall Associated symptoms: swelling and unable to bear weight Other symptoms: none Related Data Home Medications Medication Instructions Recorded Confirmed bupropion HCl 100 mg PO BID 04/28/21 09/30/21 losartan 50 mg PO DAILY 04/28/21 09/30/21 metoprolol tartrate 25 mg PO BID 04/28/21 09/30/21 multivit with min-folic acid 1 tablet PO DAILY 04/28/21 09/30/21 [Adult One Daily Multivitamin] primidone 50 mg PO HS 04/28/21 09/30/21 rosuvastatin 10 mg PO DAILY 04/28/21 09/30/21 amiodarone 400 mg PO BID 09/30/21 09/30/21 bisacodyl [Dulcolax (bisacodyl)] 10 mg PO PRN PRN 09/30/21 09/30/21 Allergies Allergy/AdvReac Type Severity Reaction Status Date / Time No Known Allergies Allergy Verified 06/11/15 14:52 Review of Systems Review of Systems: All systems reviewed & are unremarkable except as noted in HPI and below PMFSH Past Medical History Medical History Afib HLD (hyperlipidemia) HTN (hypertension) Social History Social History Smoking status: Former smoker Tobacco type: cigarettes Second hand tobacco smoke exposure: No Alcohol intake: current Drinks per week: 6 Substance use: never Substance use type: does not use Gender identity (if verbalized by the patient): Female Spiritual care concerns: No Exam Const: General: no acute distress Orientation/consciousness: patient oriented x3 HENMT: Head: normal to inspection Eyes: General: appearance normal, both eyes and all related structures Conjunctivae: conjunctivae normal Pupils: Equal, round and reactive pupils present Neck: Neck: normal visual inspection, no lymphadenopathy and no meningeal signs Cardio: Rate: regular rate Rhythm: regular rhythm : General: Yes no CVA tenderness Back/Spine/Pelvis: Back: no CVA tenderness Skin: General skin exam: normal color Rashes: no rashes Extrem: Other: Right knee pain with swelling and decreased range of motion Psych: Mental Status: mental status grossly normal Affect: Anxious affect present Course Course Emergency Course: patient sustained a fall x-rays a Allyssa revealed a acute right distal femoral metaphyseal fracture above her right knee arthroplasty with moderate displacement and angulation. Patient had received pain control with Toradol and morphine receiving IV fluids and vital signs are stable, with a blood pressure of 106/83, labs reviewed with patient and family. spoke with Orthopedics at [facility] in [place] and patient was accepted for transfer. Spoke with Dr. Polanco Vital Signs Vital signs: Vital Signs Temperature 36.4 C L 09/30/21 21:10 Pulse Rate 95 11
--- NOTE | 2021-09-30 22:10 | PC.NURSE ---
Call placed to pts daughter POA who lives in [place]. Discussed xray findings and POC for transfer to ortho surgeon. Will keep daughter informed of new info p we find an ortho to accept and place of transfer.
[2021-09-30 22:18] LABS: INR 1.1; Partial Thromboplastin Time 29.3 SEC (23.90-30.70); Prothrombin Time 11.2 Seconds (9.50-12.10)
[2021-09-30 22:20] LABS: Alanine Aminotransferase 25 U/L (14-59); Alkaline Phosphatase 85 U/L (46-116); Anion Gap 11 mmol/L (8-16); Aspartate Amino Transferase 23 U/L (15-37); Bilirubin,Total 0.5 mg/dL (0.00-1.00); Blood Urea Nitrogen 16 mg/dL (7-18); Calcium 9.3 mg/dL (8.5-10.1); Carbon Dioxide 29 mmol/L (21-32); Chloride 97 mmol/L (98-108); Estimated CRCL calculation 29 ml/min; Estimated Glomerular Filt Rate 43; Glucose 102 mg/dL (70-99); Osmolality Calculated 285 mOsm/kg (285-295); Potassium 3.8 mmol/L (3.5-5.1); Sodium 137 mmol/L (136-145); Total Protein 7.7 g/dL (6.4-8.2)
--- NOTE | 2021-09-30 22:23 | PC.NURSE ---
covid swab sent to lab
[2021-09-30 22:24] LABS: Add Urine Microscopic? YES; Appearance Urine Clear (Clear); Bilirubin Urine Negative (Negative); Blood Urine 3+ (Negative); Color Urine Yellow (Yellow); Glucose Urine UA Negative (Negative); Ketones Urine Negative (Negative); Leukocyte Esterase Ur Negative (Negative); Nitrate Urine Negative (Negative); Protein Urine Trace (Negative); Specific Grav Ur 1.015 (1.010-1.020); pH Urine 6.5 (5.0-8.0)
--- NOTE | 2021-09-30 22:26 | PC.NURSE ---
Call placed to [facility], spoke to huma Ramirez who will try to contact ortho for acceptance and await call back. Pt resting at this time, Rt lower extrem supported in position of comfort at this time.
[2021-09-30 22:29] LABS: Bacteria Urine None seen /hpf; RBC Urine >75 /hpf (0-2); Squamous Epithelial Cell Urine None seen /hpf (Few); WBC Urine 0-3 /hpf (0-3)
[2021-09-30 22:38] VITALS: BP 143/70; PULSE 60; RESP 18; O2SAT 94
[2021-09-30 23:03] LABS: SARS-CoV-2 RNA PCR Negative (Negative)
--- NOTE | 2021-09-30 23:17 | PC.NURSE ---
Call back from huma Hitchcock. spoke to Dr Senior and declined acceptance for ortho. Will call [facility]
[2021-09-30 23:20] VITALS: BP 139/56; PULSE 60; RESP 18; O2SAT 97
--- NOTE | 2021-09-30 23:23 | PC.NURSE ---
No beds at [facility], Call placed to [facility] in [place] for ortho surgeon. Bed is available and will call back from ortho. Awaiting call back, pt sleeping at this time, RR even and nonlabored, VSS.
[2021-10-01 00:19] VITALS: BP 141/71; PULSE 61; RESP 16; O2SAT 96
--- NOTE | 2021-10-01 00:26 | PC.NURSE ---
Call back from [facility] Dr Polanco speaking c Dr Senior. Dr Polanco accepts for pt transfer, will await call back for bed asisgnment.
[2021-10-01] MEDS: MORPHINE SULFATE (*CRX) 4 MG/ML INJ IV PUSH (01:28)
--- NOTE | 2021-10-01 01:28 | PC.NURSE ---
Pt awake and moaning in pain, pt reoriented to situation and POC, 4mg Morphine given as per order. Pt repositioned to Lt side lying position c pillows supporting extremity. Awaiting call from [facility] for bed placement.
[2021-10-01 01:30] VITALS: BP 167/65; PULSE 63; RESP 20; TEMP 36.6; O2SAT 99
[2021-10-01 02:08] VITALS: BP 165/67; PULSE 60; RESP 18; TEMP 36.6; O2SAT 96
--- NOTE | 2021-10-01 02:35 | PC.NURSE ---
Report to [facility] and pt loaded to cot for transfer.
== END 2021-10-01 02:35 | disposition short-term general hospital (02) ==
PROVIDERS: Emergency Provider Emergency Medicine; PCP Internal Medicine
DX: S72.401A Unspecified fracture of lower end of right femur, initial encounter for closed fracture (principal); W05.0XXA Fall from non-moving wheelchair, initial encounter; Z20.822 Contact with and (suspected) exposure to COVID-19
CPT/HCPCS: 36415; 73502; 73560; 80053; 81001; 85025; 85610; 85730; 96361; 96374; 96375; 96376; 99285; C9803; J1885; J2270; J7030; U0003; U0005

== ENCOUNTER 2022-01-08 07:10 | Outpatient (NON) | payer MEDICARE, SELFPAY ==
[2022-01-08 07:54] LABS: Basophils Absolute Auto 0.09 K/mm3 (0.00-0.10); Basophils Percent Auto 0.9 % (0.0-1.0); Hematocrit 37.1 % (35.0-42.0); Hemoglobin 11.9 g/dL (11.7-13.8); Immature Granulocyte Absolute 0.04 K/mm3 (0.00-0.00); Immature Granulocyte Percent A 0.4 % (0.0-0.0); Lymphocytes Absolute Auto 2.75 K/mm3 (1.10-4.50); Lymphocytes Percent Auto 27.5 % (18.0-42.0); Mean Corpuscular HGB Conc 32.1 g/dL (32.0-36.0); Mean Corpuscular Hemoglobin 30.8 pg (27.0-31.0); Mean Corpuscular Volume 96.1 fL (78.0-102.0); Mean Platelet Volume 10.4 fl (9.2-11.8); Monocytes Absolute Auto 1.01 K/mm3 (0.10-0.90); Monocytes Percent Auto 10.1 % (2.0-11.0); Neutrophils Absolute Auto 5.5 K/mm3 (1.7-7.2); Neutrophils Percent Auto 55.1 % (50.0-70.0); Platelet Count Result 230 K/mm3 (150-420); Red Blood Count 3.86 M/mm3 (4.20-5.40); Red Cell Distribution Width 15.9 % (11.6-14.4)
[2022-01-08 07:55] LABS: Appearance Urine Cloudy (Clear); Bilirubin Urine Negative (Negative); Blood Urine 3+ (Negative); Glucose Urine UA Trace (Negative); Ketones Urine 1+ (Negative); Leukocyte Esterase Ur 2+ (Negative); Nitrate Urine Positive (Negative); Protein Urine 3+ (Negative)
[2022-01-08 07:59] LABS: Add Urine Microscopic? YES; Color Urine Dark Red (Yellow)
[2022-01-08 08:00] LABS: Bacteria Urine Trace /hpf; RBC Urine >75 /hpf (0-2)
[2022-01-08 08:18] LABS: Alanine Aminotransferase 21 U/L (14-59); Alkaline Phosphatase 60 U/L (46-116); Anion Gap 8 mmol/L (8-16); Aspartate Amino Transferase 15 U/L (15-37); Bilirubin,Total 0.4 mg/dL (0.00-1.00); Blood Urea Nitrogen 16 mg/dL (7-18); Calcium 8.9 mg/dL (8.5-10.1); Carbon Dioxide 28 mmol/L (21-32); Chloride 102 mmol/L (98-108); Cholesterol 137 mg/dL (0-200); Creatine Kinase 35 U/L (26-192); Estimated Glomerular Filt Rate 60; Free T4 Free Thyroxine 1.19 ng/dL (0.76-1.46); Glucose 98 mg/dL (70-99); HDL Direct 73 mg/dL (40-60); LDL Cholesterol Calculated 53 mg/dL (<130); Osmolality Calculated 287 mOsm/kg (285-295); Potassium 4.2 mmol/L (3.5-5.1); Sodium 138 mmol/L (136-145); Thyroid Stimulating Hormone 2.96 uIU/mL (0.36-3.74); Total Protein 6.4 g/dL (6.4-8.2); Triglycerides 53 mg/dL (0-150)
== END 2022-01-08 07:11 | disposition home or self-care (01) ==
PROVIDERS: Visit Provider Internal Medicine
DX: I48.91 Unspecified atrial fibrillation (principal); E78.5 Hyperlipidemia, unspecified; I10 Essential (primary) hypertension; E03.9 Hypothyroidism, unspecified; N39.0 Urinary tract infection, site not specified
CPT/HCPCS: 36415; 80053; 80061; 81001; 82550; 84439; 84443; 85025; 87086

== ENCOUNTER 2022-03-16 07:56 | Outpatient (CLI) | payer MEDICARE, SELFPAY ==
--- NOTE | ~2022-03-16 | XR_ITS ---
EXAMINATION: CT abdomen pelvis wo/w con, XR abdomen/kub 1V DATE: 03/16/2022 09:19 INDICATION: Gross hematuria TECHNIQUE: 1. Computed tomography (CT) of the abdomen and pelvis was performed without intravenous contrast. CT of the abdomen and pelvis was then performed with a total of 130 mL Omnipaque-350 intravenous contras t using a double-bolus technique for simultaneous opacification of the renal parenchyma and renal col lecting system. Automated exposure control and iterative reconstruction technique were employed. The dose-length product was 882.41 mGy-cm. 2. AP view of the abdomen and pelvis was obtained on 2 radiographs. COMPARISON: 02/11/2021 FINDINGS: CT UROGRAM: Small left pleural effusion. Mild smooth septal line thickening at the periphery of the bilateral tal g bases consistent with mild pulmonary edema. Cardiomegaly. Atherosclerotic coronary artery calcific location. No pericardial effusion. Aortic valve and mitral annular calcification. Dual-lead cardiac p acemaker with lead tips at the right atrial appendage and in the right ventricle at the pulmonary out flow tract. Incompletely visualized descending thoracic aortic aneurysm measuring 5.4 x 5.3 cm in max imal transaxial dimensions. This tapers to 2.5 cm in maximal diameter at the thoracic outlet. Liver, gallbladder, spleen, pancreas and bilateral adrenal glands are normal. There are few bilateral subcentimeter hypodense renal cysts. Small regions of cortical atrophy at the upper and lower poles of the left kidney which are new since the prior study. No urolithiasis. The distal half the right ur eter and a small portion of the mid left ureter remain unopacified with contrast. No urothelial irreg ularities at the bilateral renal collecting systems are contrast opacified portions of ureters. There is mild to moderate colonic diverticulosis with a sigmoid predominance. There is no adjacent inflam matory change to suggest diverticulitis. Small bowel and appendix are normal. The uterus is not ident ified and has likely been surgically resected. Small amount of gas in the nondependent aspect of the bladder. 10 x 8 mm nodular filling defect delineated by intraluminal contrast in the nondependent rig ht trigonal region of the bladder. There is calcified atherosclerosis of the aorta and many of the ot her arteries. No free intraperitoneal gas or fluid. No pathologically enlarged abdominal or pelvic l ymphadenopathy. Moderate lumbar levoscoliosis with severe spondylosis. Right total hip arthroplasty. ABDOMEN RADIOGRAPH(S): Normal bowel gas pattern. No suspicious calcification is in the abdomen or pelvis. Lumbar levoscolios is with severe spondylosis. Atherosclerotic calcification is at the abdominal aorta and bilateral bee ac arteries. Right total hip arthroplasty. IMPRESSION: 1. Indeterminate 10 x 8 mm nodular filling defect in the right trigonal region of the bladder which g iven the history of hematuria raises concern for malignancy. Alternatively this could represent a sma ll amount of clot. Recommend cystoscopy for further evaluation. 2. 5.4 cm ascending thoracic aortic aneurysm. 3. Small left pleural effusion. 4. Diverticulosis. 5. New small regions of cortical atrophy at the left kidney. 6. Mild cardiomegaly. Reviewed, dictated and finalized at location B. IMPRESSION: 1. Indeterminate 10 x 8 mm nodular filling defect in the right trigonal region of the bladder which given the history of hematuria raises concern for malignan cy. Alternatively this could represent a small amount of clot. Recommend cystos copy for further evaluation. 2. 5.4 cm ascending thoracic aortic aneurysm. 3. Small left pleural effusion. 4. Diverticulosis. 5. New small regions of cortical atrophy at the left kidney.
[2022-03-16 08:25] LABS: Estimated Glomerular Filt Rate > 60
== END 2022-03-16 07:57 | disposition home or self-care (01) ==
LOC: CHSIMG 07:59
PROVIDERS: PCP Internal Medicine; Visit Provider Urology
DX: R31.0 Gross hematuria (principal)
CPT/HCPCS: 74018; 74178; Q9967

== ENCOUNTER 2022-03-22 06:50 | Outpatient (NON) | payer MEDICARE, SELFPAY ==
[2022-03-22 07:05] LABS: Appearance Urine Cloudy (Clear); Bilirubin Urine Negative (Negative); Blood Urine 3+ (Negative); Glucose Urine UA Negative (Negative); Ketones Urine 1+ (Negative); Leukocyte Esterase Ur 1+ (Negative); Nitrate Urine Positive (Negative); Protein Urine 3+ (Negative)
[2022-03-22 07:13] LABS: Add Urine Microscopic? YES; Bacteria Urine 3+ /hpf; Color Urine Dark Red (Yellow); RBC Urine >75 /hpf (0-2); Squamous Epithelial Cell Urine Occasional /hpf (Few)
== END 2022-03-22 06:51 | disposition home or self-care (01) ==
LOC: CHSLAB 06:52
PROVIDERS: Visit Provider Urology
DX: N39.0 Urinary tract infection, site not specified (principal)
CPT/HCPCS: 81001; 87077; 87086; 87088; 87186

== ENCOUNTER → 2022-03-28 00:23 | Day surgery (SDC) | payer MEDICARE, SELFPAY ==
[2022-03-21 10:58] VITALS: BMI 23.5
--- NOTE | 2022-03-21 12:06 | PC.NURSE ---
Report to the Outpatient Waiting Room, entrance under the green pavilion located off [address], at time __6:30AM on date ___03/28/22____. OR Time: ___8:30AM . - You and your visitor will be asked a series of questions to screen for COVID 19 for your protection. - Only one visitor is allowed at this time. - The patient visitor is requested to leave or wait in car when not with patient. - A mask is required within the hospital. Patients may have clear liquids (water, carbonated beverages, clear teas, apple juice) until 3 hours prior to surgery with a maximum of 20 ounces. - No food from midnight until time of surgery - Infants may have breast milk until 4 hours before surgery, formula 6 hours prior to surgery. - Children will be allowed to drink immediately following surgery. If applicable, please bring a bottle or sippy cup to assist with drinking. Juice, water, soda, and popsicles are readily available. For infants on formula, please bring formula the day of surgery. Pacifiers are allowed. Take the following medications with a SIP of water the morning of surgery: ___BUPROPION, METOPROLOL, TRAMADOL NEEDED Medications to discontinue per physician NO HOLDING ELIQUIS OR ASPIRIN PER CAROLYNN AT DR SEVERINO'S OFFICE. HOLD VITAMINS/SUPPLEMENTS 3 DAYS PRE-OP Date to take last dose___03/24/22 Please no make-up, nail english, hairspray, perfume, deodorant, or body powder the day of surgery. No jewelry (including any body piercings) or valuables the day of surgery, leave them at home. Please take a shower or bath the night before, or the morning of, surgery with an antibacterial soap. Wear comfortable, loose fitting clothing. Children are encouraged to wear pajamas. - Jewelry must be removed prior to entering the operating room. Rings and piercings that are not removed may be cut off. - The hospital will not accept responsibility for valuables. - Please leave all valuables, including medications, at home the day of surgery. If you are going home after surgery, a licensed limo driver must drive you home. - NO public transportation without another adult. - We recommend that an adult stay with you for 24 hours following discharge. - We also recommend that you do not drive, make important decision, drink alcoholic beverages, or take any drugs that were not prescribed by your health care provider for at least 24 hours after your discharge time. For Pediatric surgeries, we recommend two adults accompany the child home (only one inside the building at this time). Follow any additional instructions given to you from your surgeon. If you or anyone in your household have experienced Covid symptoms in the past week, please notify your surgeon or the nurse liaison at the phone number below for possible testing. Telephone instructions given to __CAROLYNN AT [facility] and asked if any additional questions and then verbalized understanding. Patient advised to call surgeon office or pre surgery nurse liaison [phone] if any additional questions.6:30AM
--- NOTE | 2022-03-25 08:05 | PM.IMHP ---
H&P: HPI History of Present Illness Date/Time: 03/25/22 08:05 This is a woman with gross hematuria. I could not adequately do an office cystoscopy. She has multi-drug resistant infection. She was treated with fosfomycin. She will be given a dose of ceftriaxone in the OR. We will look for any abnormality and treat it Chief Complaint: Gross hematuria Review of Systems Review of Systems: All systems reviewed & are unremarkable except as noted in HPI and below PMFSH Past Medical History Medical History Afib HLD (hyperlipidemia) HTN (hypertension) Social History Social History Smoking packs per day: 1.5 Smoking cigarettes per day: 30.0 Years smoked: 45 Smoking pack-years: 67.50 Smoking status: Former smoker Tobacco type: cigarettes Second hand tobacco smoke exposure: No Smoking end date: 05/20/16 Alcohol intake: current Drinks per week: 6 Substance use: never Substance use type: does not use Gender identity (if verbalized by the patient): Female Spiritual care concerns: No Meds Home Medications and Allergies Home Medications Medication Instructions Recorded Confirmed Type bupropion HCl 100 mg PO BID 04/28/21 03/21/22 History losartan 50 mg PO QAM 04/28/21 03/21/22 History metoprolol tartrate 25 mg PO BID 04/28/21 03/21/22 History multivit with min-folic acid 1 tablet PO DAILY 04/28/21 03/21/22 History [Adult One Daily Multivitamin] primidone 50 mg PO HS 04/28/21 03/21/22 History rosuvastatin 10 mg PO DAILY 04/28/21 03/21/22 History bisacodyl [Dulcolax (bisacodyl)] 5 mg PO PRN PRN 09/30/21 03/21/22 History apixaban [Eliquis] 5 mg PO BID 03/21/22 03/21/22 History aspirin 81 mg PO DAILY 03/21/22 03/21/22 History bisacodyl 10 mg RECTAL DAILY PRN 03/21/22 03/21/22 History docusate sodium [Colace] 100 mg PO BID 03/21/22 03/21/22 History tramadol 50 mg PO Q4H PRN 03/21/22 03/21/22 History Allergies Allergy/AdvReac Type Severity Reaction Status Date / Time No Known Allergies Allergy Verified 03/21/22 10:52 Exam Narrative: Not cooperative Normal breathing Debilitated Assessment and Plan Assessment and plan (1) Gross hematuria: Code(s): R31.0 - Gross hematuria Status: Acute Assessment and Plan: Cystoscopy with treatment
--- NOTE | 2022-03-28 07:32 | WPDUROPN2 ---
Subjective Subjective Date/Time Seen: 03/28/22 07:32 This patient is a retirement resident with significant dementia. We attempted cystoscopy in the office but she was quite combative. Plan today with cystoscopy under anesthesia and treatment of any abnormality. She was brought in by her nursing facility and simply dropped off. No family was available. Consent with her [id number] was done over the phone. The patient was again combative and there was no family to help manage the patient. The staff were facility would not enter the building and simply dropped her off. In light of this we had to cancel her procedure Objective Data Meds/Results Medications: Active Medications Generic Name Dose Route Start Last Admin Trade Name Freq PRN Reason Stop Dose Admin Lactated Ringer's 1,000 mls @ 30 mls/hr 03/28/22 07:10 Lr - Lactated Ringers Iv IV CONT .Q24H JASPREET
--- NOTE | 2022-03-28 07:47 | SUR.PREOP ---
0600 SPOKE WITH PATIENT AND MASONRY INSTRUCTOR IN REGISTRATION, PT REFUSES TO BE TREATED STATING SHE DOES NOT KNOW WHAT IS GOING ON, SPEAKING LOUDLY IN WAITING AREA. ORIENTED TO PERSON AND BIRTHDATE. 0615 -CONTACTED DAUGHTER/POA BY PHONE. PT SPOKE TO DAUGHTER. SPOOK WITH DAUGHTER IN A LOUD VOICE AND TOLD DAUGHTER TO SHUT UP THEN SAID FINE I'LL DO IT. CONTINUED TO SPEAK LOUDLY. 0630 PT TO PREOP, STATES SHE IS NOT HAVING ANYTHING DONE. DENIES THAT SHE SPOKE WITH HER DAUGHTER. 0650 COOPERATIVE WITH OBTAINING VITAL SIGNS, REFUSING TO HAVE ANYTHING DONE SHE DOES NOT KNOW WHAT WE ARE DOING. PT HAS BEEN REMINDED REPEATEDLY WHAT HER PROCEEDURE IS. REFUSING TO BE MOVED WITH MARCEL LIFT, SPEAKING LOUDLY 0720 DR SEVERINO IN TO SEE PT. PT REFUSING TO BE MOVED OR CHANGE HER CLOTHES. CASE TO BE CANCELLED.
== END | disposition home or self-care (01) ==
PROVIDERS: PCP Internal Medicine; Visit Provider Urology
PROC: 0TJB8ZZ Inspection of Bladder, Via Natural or Artificial Opening Endoscopic (ICD-10-PCS; CPT 52000; principal; 2022-03-28 08:30)
DX: R31.0 Gross hematuria (principal); Z53.8 Procedure and treatment not carried out for other reasons; F03.90 Unspecified dementia, unspecified severity, without behavioral disturbance, psychotic disturbance, mood disturbance, and anxiety
CPT/HCPCS: 99211; G0463

== ENCOUNTER 2022-03-30 06:36 | Outpatient (NON) | payer MEDICARE, SELFPAY ==
[2022-03-30 06:48] LABS: Appearance Urine Cloudy (Clear); Bilirubin Urine Negative (Negative); Blood Urine 3+ (Negative); Color Urine Red (Yellow); Glucose Urine UA Negative (Negative); Ketones Urine Negative (Negative); Nitrate Urine Negative (Negative); Protein Urine 2+ (Negative); Urobilinogen Urine 0.2 mg/dL (0.2-1.0); pH Urine 5.5 (5.0-8.0)
[2022-03-30 06:49] LABS: Add Urine Microscopic? YES; Bacteria Urine 1+ /hpf; Leukocyte Esterase Ur Negative (Negative); RBC Urine >75 /hpf (0-2); Squamous Epithelial Cell Urine Rare /hpf (Few); WBC Urine 0-3 /hpf (0-3)
== END 2022-03-30 06:37 | disposition home or self-care (01) ==
LOC: CHSLAB 06:39
PROVIDERS: PCP Internal Medicine; Visit Provider Urology
DX: N39.0 Urinary tract infection, site not specified (principal)
CPT/HCPCS: 81001; 87086

== ENCOUNTER 2022-04-07 01:02 | Day surgery (SDC) | payer MEDICARE, SELFPAY ==
[2022-03-30 15:51] VITALS: BMI 23.5
--- NOTE | 2022-03-30 15:57 | PC.NURSE ---
Report to the Outpatient Waiting Room, entrance under the green pavilion located off [facility], at time _11:00AM on date __04/07/22 . OR Time: __1:00PM . - You and your visitor will be asked a series of questions to screen for COVID 19 for your protection. - Only one visitor is allowed at this time. - The patient visitor is requested to leave or wait in car when not with patient. - A mask is required within the hospital. Patients may have clear liquids (water, carbonated beverages, clear teas, apple juice) until 3 hours prior to surgery with a maximum of 20 ounces. - No food from midnight until time of surgery - Infants may have breast milk until 4 hours before surgery, infant formula 6 hours prior to surgery. - Children will be allowed to drink immediately following surgery. If applicable, please bring a bottle or sippy cup to assist with drinking. Juice, water, soda, and popsicles are readily available. For infants on formula, please bring formula the day of surgery. Pacifiers are allowed. Take the following medications with a SIP of water the morning of surgery: ___BUPROPION, METOPROLOL, TRAMADOL NEEDED __DAUGHTER STATES PT HAS A SEDATIVE TO TAKE PRIOR TO COMING TO HOSPITAL Medications to discontinue per physician NO NEED TO HOLD ELIQUIS OR ASPIRIN PER CAROLYNN @ DR SEVERINO'S OFFICE, HOLD ALL VITAMINS/SUPPLEMENTS 3 DAYS PRE-OP- LAST DOSE 04/03/22 Please no make-up, nail solomon islander, hairspray, perfume, deodorant, or body powder the day of surgery. No jewelry (including any body piercings) or valuables the day of surgery, leave them at home. Please take a shower or bath the night before, or the morning of, surgery with an antibacterial soap. Wear comfortable, loose fitting clothing. Children are encouraged to wear pajamas. - Jewelry must be removed prior to entering the operating room. Rings and piercings that are not removed may be cut off. - The hospital will not accept responsibility for valuables. - Please leave all valuables, including medications, at home the day of surgery. If you are going home after surgery, a licensed fire truck driver must drive you home. - NO public transportation without another adult. - We recommend that an adult stay with you for 24 hours following discharge. - We also recommend that you do not drive, make important decision, drink alcoholic beverages, or take any drugs that were not prescribed by your health care provider for at least 24 hours after your discharge time. For Pediatric surgeries, we recommend two adults accompany the child home (only one inside the building at this time). Follow any additional instructions given to you from your surgeon. If you or anyone in your household have experienced Covid symptoms in the past week, please notify your surgeon or the nurse liaison at the phone number below for possible testing. Telephone instructions given to ___[facility] and asked if any additional questions and then verbalized understanding. Patient advised to call surgeon office or pre surgery nurse liaison [phone] if any additional questions.
--- NOTE | 2022-04-06 08:10 | WPDANESEPPF ---
Anes - Initial Pre Proc Eval Procedure: Operation Date: 04/07/22 13:00 Proposed Procedures p Cystoscopy - Peter Lynch MD Date/Time: 04/06/22 08:10 Surgeon: Peter Lynch MD Pre Op Diagnosis: gross hematuria Patient Data Age: 86 Gender: F Height: 1.68 m Weight: 66 kg Allergies Allergy/AdvReac Type Severity Reaction Status Date / Time No Known Allergies Allergy Verified 04/07/22 11:28 Home Medications Medication Instructions Recorded Confirmed Type bupropion HCl 100 mg PO BID 04/28/21 03/30/22 History losartan 50 mg PO QAM 04/28/21 03/30/22 History metoprolol tartrate 25 mg PO BID 04/28/21 03/30/22 History multivit with min-folic acid 1 tablet PO DAILY 04/28/21 03/30/22 History [Adult One Daily Multivitamin] primidone 50 mg PO HS 04/28/21 03/30/22 History rosuvastatin 10 mg PO DAILY 04/28/21 03/30/22 History bisacodyl [Dulcolax (bisacodyl)] 5 mg PO PRN PRN 09/30/21 03/30/22 History apixaban [Eliquis] 5 mg PO BID 03/21/22 03/30/22 History aspirin 81 mg PO DAILY 03/21/22 03/30/22 History bisacodyl 10 mg RECTAL DAILY PRN 03/21/22 03/30/22 History docusate sodium [Colace] 100 mg PO BID 03/21/22 03/30/22 History tramadol 50 mg PO Q4H PRN 03/21/22 03/30/22 History Patient hx anesthesia problems: none Family hx anesthesia problems: none Results Review: All pre-operative results and documents have been reviewed as part of the pre-operative evaluation. 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 COPD (chronic obstructive pulmonary disease) Dementia HLD (hyperlipidemia) HTN (hypertension) Social History Social History Smoking packs per day: 1.5 Smoking cigarettes per day: 30.0 Years smoked: 45 Smoking pack-years: 67.50 Smoking status: Former smoker Tobacco type: cigarettes Second hand tobacco smoke exposure: No Smoking end date: 05/20/16 Alcohol intake: current Drinks per week: 6 Substance use: never Substance use type: does not use Living arrangements: long-term Gender identity (if verbalized by the patient): Female Spiritual care concerns: No Anes - Eval Final PreProcedure Day of Procedure 04/06/22 08:10 Patient weight: normal Heart: regular rate and rhythm Lungs: clear to auscultation and normal air movement Airway: Mallampati scale class II Neurological: confused Last oral intake: >/= 8 hours ASA classification: IV Emergent: no Anesthetic plan: proceed Anesthesia type and monitoring: general GIVS and LMA Results Review: All pre-operative results and documents have been reviewed as part of the pre-operative evaluation. Informed Consent: The patient's anesthetic plan and its attendant risks and benefits were discussed with the patient/family/POA. Questions were solicited and answers provided to the satisfaction of the patient/family/POA.
--- NOTE | 2022-04-07 06:22 | WPDHPUPDATE1 ---
History and Physical Update Update Date/Time: 04/07/22 06:22 History and Physical has been reviewed, including an updated exam of the patient. There are NO changes in the patient's condition. Risks, benefits, and alternatives have been discussed and questions answered. Patient agrees to proceed with procedure.
[2022-04-07 11:35] VITALS: BP 149/69; PULSE 76; RESP 20; TEMP 36.6
[2022-04-07] MEDS: LACTATED RINGERS 1,000 ML 30 ML IV CONT (12:10)
[2022-04-07] MEDS: ceFAZolin 2 GM/D5W 50 ML 2 GM/50 ML BAG IVPB (13:04)
[2022-04-07] MEDS: LIDOCAINE HCL 2% GEL UROJET 10 ML PKG MUCOUS MEM (13:22)
--- NOTE | 2022-04-07 13:37 | W.PM.PROC2 ---
Procedure Note - Detailed Date of Procedure 04/07/22 Pre-op Diagnosis Gross hematuria Post-op Diagnosis Same Procedure Performed Cystoscopy Surgeon Peter Lynch MD Anesthesia MAC Findings Normal bladder and clear efflux from each ureteral orifice Description of Procedure The patient is brought to the operative suite where she is prepped and draped in a routine sterile fashion while in the dorsal lithotomy position. 2% lidocaine jelly was introduced in the urethra and allowed to stand for an appropriate period of time. Systemic sedation was administered by the anesthesia department. Cystoscopy was undertaken with first a 16 F flexible cystoscope and then (because of slightly bloody urine) a 21 F rigid cystoscope. Although her urine did appear slightly bloody, the bladder neck and urethra were endoscopically normal. The bladder mucosa was normal without hyperemia. There was no intravesical foreign body or neoplasm. She had a single orthoptic ureteral orifice bilaterally. There was clear efflux from each ureteral orifice. in light of her recent normal contrast-enhanced CT scan and shortness of radiographic injectable contrast opted not to do retrograde pyelograms. At this point the cystoscope was removed. Will put her on suppressive Keflex 500 mg daily pending a culture result. Drains No Packing No Pathology None sent Complications No immediate complications Condition Stable Disposition PACU
[2022-04-07 13:39] VITALS: BP 125/56; PULSE 61; RESP 16; O2SAT 97
[2022-04-07 14:00] VITALS: BP 118/56; PULSE 59; RESP 16; O2SAT 97
[2022-04-07 14:30] VITALS: BP 123/55; PULSE 59; RESP 16; O2SAT 98
== END 2022-04-07 15:00 ==
PROVIDERS: PCP Internal Medicine; Visit Provider Urology
PROC: 0TJB8ZZ Inspection of Bladder, Via Natural or Artificial Opening Endoscopic (ICD-10-PCS; CPT 52000; principal; 2022-04-07 13:00)
DX: R31.0 Gross hematuria (principal); I48.91 Unspecified atrial fibrillation; J44.9 Chronic obstructive pulmonary disease, unspecified; I10 Essential (primary) hypertension; E78.5 Hyperlipidemia, unspecified; F03.90 Unspecified dementia, unspecified severity, without behavioral disturbance, psychotic disturbance, mood disturbance, and anxiety; I71.2 Thoracic aortic aneurysm, without rupture; Z79.01 Long term (current) use of anticoagulants; Z79.82 Long term (current) use of aspirin; Z87.891 Personal history of nicotine dependence
CPT/HCPCS: 52000; 87086; A9270; J0690; J2405; J2704; J7120

== ENCOUNTER 2022-07-08 06:19 | Outpatient (NON) | payer MEDICARE, SELFPAY ==
[2022-07-08 06:37] LABS: Basophils Absolute Auto 0.08 K/mm3 (0.00-0.10); Basophils Percent Auto 0.9 % (0.0-1.0); Eosinophils Absolute Auto 0.53 K/mm3 (0.02-0.50); Eosinophils Percent Auto 6.2 % (1.0-6.0); Hematocrit 30.9 % (35.0-42.0); Hemoglobin 9.3 g/dL (11.7-13.8); Immature Granulocyte Absolute 0.03 K/mm3 (0.00-0.00); Immature Granulocyte Percent A 0.4 % (0.0-0.0); Lymphocytes Absolute Auto 2.22 K/mm3 (1.10-4.50); Mean Corpuscular HGB Conc 30.1 g/dL (32.0-36.0); Mean Corpuscular Hemoglobin 25.2 pg (27.0-31.0); Mean Corpuscular Volume 83.7 fL (78.0-102.0); Mean Platelet Volume 10.2 fl (9.2-11.8); Monocytes Absolute Auto 1.02 K/mm3 (0.10-0.90); Monocytes Percent Auto 11.9 % (2.0-11.0); Neutrophils Absolute Auto 4.7 K/mm3 (1.7-7.2); Neutrophils Percent Auto 54.6 % (50.0-70.0); Platelet Count Result 260 K/mm3 (150-420); Red Blood Count 3.69 M/mm3 (4.20-5.40); Red Cell Distribution Width 15.5 % (11.6-14.4); White Blood Count 8.6 K/mm3 (4.8-10.8)
[2022-07-08 06:38] LABS: Add Urine Microscopic? YES; Appearance Urine Slightly Cloudy (Clear); Bilirubin Urine Negative (Negative); Blood Urine 3+ (Negative); Color Urine Red (Yellow); Glucose Urine UA Negative (Negative); Ketones Urine Negative (Negative); Leukocyte Esterase Ur Negative LEU/UL (Negative); Nitrate Urine Negative (Negative); Protein Urine 1+ (Negative); Urobilinogen Urine 0.2 mg/dL (0.2-1.0); pH Urine 6.5 (5.0-8.0)
[2022-07-08 06:44] LABS: MALB Creatinine Ratio 210.3 mg/g (0-30); Microalbumin Urine Random 99.3 mg/L
[2022-07-08 06:46] LABS: Hemoglobin A1C 5.9 % (<5.7)
[2022-07-08 06:49] LABS: RBC Urine >75 /hpf (0-2); WBC Urine 0-3 /hpf (0-3)
[2022-07-08 06:50] LABS: Bacteria Urine Trace /hpf; Squamous Epithelial Cell Urine Few /hpf (Few)
[2022-07-08 06:56] LABS: Alanine Aminotransferase 17 U/L (14-59); Albumin Level 3.1 g/dL (3.4-5.0); Alkaline Phosphatase 68 U/L (46-116); Anion Gap 7 mmol/L (8-16); Aspartate Amino Transferase 19 U/L (15-37); Bilirubin,Total 0.3 mg/dL (0.00-1.00); Blood Urea Nitrogen 17 mg/dL (7-18); Calcium 8.7 mg/dL (8.5-10.1); Carbon Dioxide 27 mmol/L (21-32); Chloride 102 mmol/L (98-108); Cholesterol 133 mg/dL (0-200); Creatine Kinase 62 U/L (26-192); Estimated Glomerular Filt Rate 53; Glucose 98 mg/dL (70-99); HDL Direct 73 mg/dL (40-60); LDL Cholesterol Calculated 51 mg/dL (<130); Osmolality Calculated 283 mOsm/kg (285-295); Potassium 4.2 mmol/L (3.5-5.1); Sodium 136 mmol/L (136-145); Total Protein 6.3 g/dL (6.4-8.2); Triglycerides 45 mg/dL (0-150); Uric Acid 5.9 mg/dL (2.6-6.0)
[2022-07-08 10:19] LABS: Immature Reticulocyte Fraction 29.9 % (2.0-16.52); Reticulocyte Hemoglobin Conten 24.4 pg (28.0-35.0); Reticulocyte Percent 2.44 % (0.50-1.50); Reticulocytes Absolute 0.09 M/mm3 (0.02-0.1)
[2022-07-08 10:49] LABS: Ferritin 3 ng/mL (8-252); Iron 19 ug/dL (50-170); Vitamin B12 389 pg/mL (193-986)
[2022-07-11 21:25] LABS: Red Blood Cell Folate 850 ng/mL RBC (>280)
== END 2022-07-08 06:20 | disposition home or self-care (01) ==
LOC: CHSLAB 06:21
PROVIDERS: Visit Provider Internal Medicine
DX: R73.01 Impaired fasting glucose (principal); I10 Essential (primary) hypertension; E78.5 Hyperlipidemia, unspecified; E79.0 Hyperuricemia without signs of inflammatory arthritis and tophaceous disease; N39.0 Urinary tract infection, site not specified; R31.9 Hematuria, unspecified; D64.9 Anemia, unspecified
CPT/HCPCS: 36415; 80053; 80061; 81001; 82043; 82550; 82607; 82728; 82747; 83036; 83540; 84550; 85025; 85046

== ENCOUNTER 2022-07-12 10:06 | Outpatient (NON) | payer MEDICARE, SELFPAY ==
[2022-07-12 10:20] LABS: Occult Blood Negative (Negative)
== END 2022-07-12 10:07 | disposition home or self-care (01) ==
LOC: CHSLAB 10:08
PROVIDERS: Visit Provider Internal Medicine
DX: D64.9 Anemia, unspecified (principal)
CPT/HCPCS: 82272

== ENCOUNTER 2022-07-14 09:33 | Outpatient (NON) | payer MEDICARE, SELFPAY ==
[2022-07-14 09:58] LABS: Occult Blood Negative (Negative)
== END 2022-07-14 09:34 | disposition home or self-care (01) ==
LOC: CHSLAB 09:35
PROVIDERS: Visit Provider Internal Medicine
DX: D64.9 Anemia, unspecified (principal); Z79.899 Other long term (current) drug therapy
CPT/HCPCS: 82272

== ENCOUNTER 2022-07-19 12:11 | Outpatient (NON) | payer MEDICARE, SELFPAY ==
[2022-07-19 12:23] LABS: Occult Blood Negative (Negative)
== END 2022-07-19 12:12 | disposition home or self-care (01) ==
LOC: CHSLAB 12:16
PROVIDERS: PCP Internal Medicine; Visit Provider Internal Medicine
DX: D64.9 Anemia, unspecified (principal)
CPT/HCPCS: 82272

== ENCOUNTER 2022-08-04 06:32 | Outpatient (NON) | payer MEDICARE, SELFPAY ==
[2022-08-04 07:23] LABS: Basophils Absolute Auto 0.06 K/mm3 (0.00-0.10); Basophils Percent Auto 0.6 % (0.0-1.0); Eosinophils Absolute Auto 0.55 K/mm3 (0.02-0.50); Eosinophils Percent Auto 5.5 % (1.0-6.0); Hematocrit 37.4 % (35.0-42.0); Hemoglobin 11.1 g/dL (11.7-13.8); Immature Granulocyte Absolute 0.05 K/mm3 (0.00-0.00); Immature Granulocyte Percent A 0.5 % (0.0-0.0); Lymphocytes Absolute Auto 2.37 K/mm3 (1.10-4.50); Lymphocytes Percent Auto 23.5 % (18.0-42.0); Mean Corpuscular HGB Conc 29.7 g/dL (32.0-36.0); Mean Corpuscular Hemoglobin 24.9 pg (27.0-31.0); Mean Corpuscular Volume 83.9 fL (78.0-102.0); Mean Platelet Volume 10.3 fl (9.2-11.8); Monocytes Absolute Auto 1.16 K/mm3 (0.10-0.90); Monocytes Percent Auto 11.5 % (2.0-11.0); Neutrophils Absolute Auto 5.9 K/mm3 (1.7-7.2); Neutrophils Percent Auto 58.4 % (50.0-70.0); Platelet Count Result 311 K/mm3 (150-420); Red Blood Count 4.46 M/mm3 (4.20-5.40); Red Cell Distribution Width 17.3 % (11.6-14.4); White Blood Count 10.1 K/mm3 (4.8-10.8)
== END 2022-08-04 06:33 | disposition home or self-care (01) ==
LOC: CHSLAB 06:44
PROVIDERS: Visit Provider Internal Medicine
DX: D64.9 Anemia, unspecified (principal)
CPT/HCPCS: 36415; 85025

== ENCOUNTER 2022-08-23 06:30 | Outpatient (NON) | payer MEDICARE, SELFPAY ==
[2022-08-23 06:54] LABS: Basophils Absolute Auto 0.07 K/mm3 (0.00-0.10); Basophils Percent Auto 0.8 % (0.0-1.0); Eosinophils Absolute Auto 0.44 K/mm3 (0.02-0.50); Eosinophils Percent Auto 5.1 % (1.0-6.0); Hematocrit 36.3 % (35.0-42.0); Hemoglobin 10.8 g/dL (11.7-13.8); Immature Granulocyte Absolute 0.03 K/mm3 (0.00-0.00); Immature Granulocyte Percent A 0.4 % (0.0-0.0); Lymphocytes Absolute Auto 2.46 K/mm3 (1.10-4.50); Lymphocytes Percent Auto 28.7 % (18.0-42.0); Mean Corpuscular HGB Conc 29.8 g/dL (32.0-36.0); Mean Corpuscular Hemoglobin 25.2 pg (27.0-31.0); Mean Corpuscular Volume 84.8 fL (78.0-102.0); Mean Platelet Volume 10.1 fl (9.2-11.8); Monocytes Absolute Auto 0.88 K/mm3 (0.10-0.90); Monocytes Percent Auto 10.3 % (2.0-11.0); Neutrophils Absolute Auto 4.7 K/mm3 (1.7-7.2); Neutrophils Percent Auto 54.7 % (50.0-70.0); Platelet Count Result 282 K/mm3 (150-420); Red Blood Count 4.28 M/mm3 (4.20-5.40); Red Cell Distribution Width 19.9 % (11.6-14.4); White Blood Count 8.6 K/mm3 (4.8-10.8)
[2022-08-23 07:25] LABS: Ferritin 4 ng/mL (8-252); Iron 37 ug/dL (50-170)
== END 2022-08-23 06:31 | disposition home or self-care (01) ==
LOC: CHSLAB 06:32
PROVIDERS: Visit Provider Internal Medicine
DX: D50.9 Iron deficiency anemia, unspecified (principal)
CPT/HCPCS: 36415; 82728; 83540; 85025

== ENCOUNTER 2022-09-03 06:59 | Outpatient (NON) | payer MEDICARE, SELFPAY ==
[2022-09-03 07:16] LABS: Basophils Absolute Auto 0.06 K/mm3 (0.00-0.10); Basophils Percent Auto 0.7 % (0.0-1.0); Eosinophils Absolute Auto 0.63 K/mm3 (0.02-0.50); Eosinophils Percent Auto 7.7 % (1.0-6.0); Hemoglobin 11.4 g/dL (11.7-13.8); Immature Granulocyte Absolute 0.03 K/mm3 (0.00-0.00); Immature Granulocyte Percent A 0.4 % (0.0-0.0); Lymphocytes Absolute Auto 2.19 K/mm3 (1.10-4.50); Lymphocytes Percent Auto 26.7 % (18.0-42.0); Mean Corpuscular Volume 86.8 fL (78.0-102.0); Mean Platelet Volume 9.8 fl (9.2-11.8); Monocytes Absolute Auto 0.91 K/mm3 (0.10-0.90); Monocytes Percent Auto 11.1 % (2.0-11.0); Neutrophils Absolute Auto 4.4 K/mm3 (1.7-7.2); Neutrophils Percent Auto 53.4 % (50.0-70.0); Platelet Count Result 238 K/mm3 (150-420); Red Blood Count 4.38 M/mm3 (4.20-5.40); Red Cell Distribution Width 20.5 % (11.6-14.4); White Blood Count 8.2 K/mm3 (4.8-10.8)
== END 2022-09-03 07:00 | disposition home or self-care (01) ==
LOC: CHSLAB 07:00
PROVIDERS: PCP Internal Medicine; Visit Provider Internal Medicine
DX: Z79.899 Other long term (current) drug therapy (principal)
CPT/HCPCS: 36415; 85025

== ENCOUNTER 2022-09-22 06:39 | Outpatient (NON) | payer MEDICARE, SELFPAY ==
[2022-09-22 07:05] LABS: Basophils Absolute Auto 0.06 K/mm3 (0.00-0.10); Basophils Percent Auto 0.7 % (0.0-1.0); Eosinophils Percent Auto 7.2 % (1.0-6.0); Hematocrit 38.4 % (35.0-42.0); Hemoglobin 12.1 g/dL (11.7-13.8); Immature Granulocyte Absolute 0.04 K/mm3 (0.00-0.00); Immature Granulocyte Percent A 0.5 % (0.0-0.0); Lymphocytes Absolute Auto 2.18 K/mm3 (1.10-4.50); Lymphocytes Percent Auto 26.1 % (18.0-42.0); Mean Corpuscular HGB Conc 31.5 g/dL (32.0-36.0); Mean Corpuscular Hemoglobin 27.2 pg (27.0-31.0); Mean Corpuscular Volume 86.3 fL (78.0-102.0); Mean Platelet Volume 9.7 fl (9.2-11.8); Monocytes Absolute Auto 0.95 K/mm3 (0.10-0.90); Monocytes Percent Auto 11.4 % (2.0-11.0); Neutrophils Absolute Auto 4.5 K/mm3 (1.7-7.2); Neutrophils Percent Auto 54.1 % (50.0-70.0); Platelet Count Result 268 K/mm3 (150-420); Red Blood Count 4.45 M/mm3 (4.20-5.40); Red Cell Distribution Width 20.7 % (11.6-14.4); White Blood Count 8.4 K/mm3 (4.8-10.8)
[2022-09-22 07:12] LABS: Appearance Urine Slightly Cloudy (Clear); Bilirubin Urine Negative (Negative); Blood Urine 3+ (Negative); Glucose Urine UA Negative (Negative); Ketones Urine Negative (Negative); Leukocyte Esterase Ur Negative (Negative); Nitrate Urine Negative (Negative); Protein Urine Negative (Negative); Specific Grav Ur <= 1.005 (1.010-1.020); Urobilinogen Urine 0.2 mg/dL (0.2-1.0); pH Urine 6.5 (5.0-8.0)
[2022-09-22 07:20] LABS: Iron 39 ug/dL (50-170)
[2022-09-22 07:30] LABS: Add Urine Microscopic? YES; Bacteria Urine Trace /hpf; Color Urine Light Yellow (Yellow); RBC Urine 21-50 /hpf (0-2); Squamous Epithelial Cell Urine Few /hpf (Few); WBC Urine None seen /hpf (0-3)
== END 2022-09-22 06:40 | disposition home or self-care (01) ==
LOC: CHSLAB 06:41
PROVIDERS: Visit Provider Internal Medicine
DX: N39.0 Urinary tract infection, site not specified (principal); D64.9 Anemia, unspecified
CPT/HCPCS: 36415; 81001; 83540; 85025; 87077; 87086; 87088; 87186

== ENCOUNTER 2022-10-06 06:27 | Outpatient (NON) | payer MEDICARE, SELFPAY ==
[2022-10-06 06:42] LABS: Basophils Absolute Auto 0.08 K/mm3 (0.00-0.10); Basophils Percent Auto 0.9 % (0.0-1.0); Eosinophils Absolute Auto 0.47 K/mm3 (0.02-0.50); Eosinophils Percent Auto 5.5 % (1.0-6.0); Hematocrit 38.3 % (35.0-42.0); Hemoglobin 11.9 g/dL (11.7-13.8); Immature Granulocyte Absolute 0.03 K/mm3 (0.00-0.00); Immature Granulocyte Percent A 0.4 % (0.0-0.0); Lymphocytes Absolute Auto 2.59 K/mm3 (1.10-4.50); Lymphocytes Percent Auto 30.5 % (18.0-42.0); Mean Corpuscular HGB Conc 31.1 g/dL (32.0-36.0); Mean Corpuscular Hemoglobin 27.4 pg (27.0-31.0); Mean Platelet Volume 9.5 fl (9.2-11.8); Monocytes Absolute Auto 0.81 K/mm3 (0.10-0.90); Monocytes Percent Auto 9.6 % (2.0-11.0); Neutrophils Absolute Auto 4.5 K/mm3 (1.7-7.2); Neutrophils Percent Auto 53.1 % (50.0-70.0); Platelet Count Result 259 K/mm3 (150-420); Red Blood Count 4.35 M/mm3 (4.20-5.40); Red Cell Distribution Width 19.7 % (11.6-14.4); White Blood Count 8.5 K/mm3 (4.8-10.8)
[2022-10-06 06:45] LABS: Add Urine Microscopic? YES; Appearance Urine Slightly Cloudy (Clear); Bilirubin Urine Negative (Negative); Blood Urine 3+ (Negative); Color Urine Yellow (Yellow); Glucose Urine UA Negative (Negative); Ketones Urine Negative (Negative); Leukocyte Esterase Ur Negative (Negative); Nitrate Urine Negative (Negative); Protein Urine 1+ (Negative); Specific Grav Ur 1.025 (1.010-1.020); Urobilinogen Urine 0.2 mg/dL (0.2-1.0)
[2022-10-06 06:49] LABS: Bacteria Urine 1+ /hpf; RBC Urine >75 /hpf (0-2); Squamous Epithelial Cell Urine Few /hpf (Few); WBC Urine None seen /hpf (0-3)
[2022-10-06 06:57] LABS: Alanine Aminotransferase 21 U/L (14-59); Albumin Level 3.2 g/dL (3.4-5.0); Alkaline Phosphatase 75 U/L (46-116); Anion Gap 8 mmol/L (8-16); Aspartate Amino Transferase 17 U/L (15-37); Bilirubin,Total 0.2 mg/dL (0.00-1.00); Blood Urea Nitrogen 30 mg/dL (7-18); Calcium 8.6 mg/dL (8.5-10.1); Carbon Dioxide 25 mmol/L (21-32); Chloride 105 mmol/L (98-108); Estimated Glomerular Filt Rate 40; Glucose 99 mg/dL (70-99); Osmolality Calculated 292 mOsm/kg (285-295); Potassium 5.1 mmol/L (3.5-5.1); Sodium 138 mmol/L (136-145); Total Protein 6.5 g/dL (6.4-8.2)
== END 2022-10-06 06:28 | disposition home or self-care (01) ==
LOC: CHSLAB 06:29
PROVIDERS: Visit Provider Internal Medicine
DX: I48.91 Unspecified atrial fibrillation (principal); J44.9 Chronic obstructive pulmonary disease, unspecified; I10 Essential (primary) hypertension; N39.0 Urinary tract infection, site not specified
CPT/HCPCS: 36415; 80053; 81001; 85025; 87086

== ENCOUNTER 2022-12-06 06:46 | Outpatient (NON) | payer MEDICARE, SELFPAY ==
[2022-12-06 07:01] LABS: Basophils Absolute Auto 0.07 K/mm3 (0.00-0.10); Basophils Percent Auto 0.8 % (0.0-1.0); Eosinophils Absolute Auto 0.62 K/mm3 (0.02-0.50); Eosinophils Percent Auto 6.7 % (1.0-6.0); Hematocrit 46.1 % (35.0-42.0); Hemoglobin 14.5 g/dL (11.7-13.8); Immature Granulocyte Absolute 0.05 K/mm3 (0.00-0.00); Immature Granulocyte Percent A 0.5 % (0.0-0.0); Lymphocytes Absolute Auto 2.05 K/mm3 (1.10-4.50); Lymphocytes Percent Auto 22.2 % (18.0-42.0); Mean Corpuscular HGB Conc 31.5 g/dL (32.0-36.0); Mean Corpuscular Hemoglobin 29.7 pg (27.0-31.0); Mean Corpuscular Volume 94.3 fL (78.0-102.0); Mean Platelet Volume 10.3 fl (9.2-11.8); Monocytes Absolute Auto 0.82 K/mm3 (0.10-0.90); Monocytes Percent Auto 8.9 % (2.0-11.0); Neutrophils Absolute Auto 5.6 K/mm3 (1.7-7.2); Neutrophils Percent Auto 60.9 % (50.0-70.0); Platelet Count Result 234 K/mm3 (150-420); Red Blood Count 4.89 M/mm3 (4.20-5.40); Red Cell Distribution Width 15.8 % (11.6-14.4); White Blood Count 9.3 K/mm3 (4.8-10.8)
[2022-12-06 07:36] LABS: Alanine Aminotransferase 20 U/L (14-59); Albumin Level 3.6 g/dL (3.4-5.0); Alkaline Phosphatase 76 U/L (46-116); Anion Gap 8 mmol/L (8-16); Aspartate Amino Transferase 16 U/L (15-37); Bilirubin,Total 0.6 mg/dL (0.00-1.00); Blood Urea Nitrogen 18 mg/dL (7-18); Carbon Dioxide 30 mmol/L (21-32); Chloride 99 mmol/L (98-108); Estimated Glomerular Filt Rate 49; Glucose 108 mg/dL (70-99); Osmolality Calculated 286 mOsm/kg (285-295); Potassium 4.1 mmol/L (3.5-5.1); Sodium 137 mmol/L (136-145); Total Protein 7.4 g/dL (6.4-8.2)
== END 2022-12-06 06:47 | disposition home or self-care (01) ==
LOC: CHSLAB 06:48
PROVIDERS: Visit Provider Internal Medicine
DX: I71.60 Thoracoabdominal aortic aneurysm, without rupture, unspecified (principal)
CPT/HCPCS: 36415; 80053; 85025

== ENCOUNTER 2022-12-12 11:07 | Observation (INO) | payer MEDICARE, SELFPAY ==
[2022-12-12] VITALS (23 sets, daily range): BP systolic 83–157; BP diastolic 53–85; PULSE 68–90; RESP 16–18; TEMP 35.8–36.2; O2SAT 96–100; BMI 31.7
--- NOTE | ~2022-12-12 | XR_ITS ---
Portable chest x-ray Comparison: 01/06/2017 Clinical History: Altered mental status Findings: Lungs are clear, without focal consolidation or pleural effusion. Cardiomediastinal silho uette is stable. Pacemaker device present. Bones and soft tissues are unremarkable. Impression: Clear lungs. Stable prominence of the aortic knob. Consider CT to better exclude aneurysm, if clinically indicated . Pacemaker is. Reviewed, dictated and finalized at location . ENCE COORDINATOR Impression: Clear lungs. Stable prominence of the aortic knob. Consider CT to better exclude aneurysm, i f clinically indicated. Pacemaker is.
--- NOTE | ~2022-12-12 | CT_ITS ---
CT head without contrast Indication: Altered mental status COMPARISON: 12/19/2016 Technique: Serial scans were obtained through the brain without the administration of contrast. Dose reduction technique was used on this scan by utilizing automated exposure control and iterative recon struction technique. The dose-length product (DLP) was 605.33 mGy-cm. Findings: There is no evidence of intracranial hemorrhage, mass lesion, or acute infarct. The ventri cles and subarachnoid spaces are dilated, consistent with moderate atrophy. Low attenuation regions are seen within the periventricular white matter bilaterally, likely representing changes from chroni c microvascular ischemic disease. There is no evidence of edema, mass effect or midline shift. The visualized paranasal sinuses and mastoid air cells are clear. Impression: No intracranial hemorrhage, mass, or acute infarct. Atrophy and chronic white matter changes, as above. Reviewed, dictated and finalized at location . ENTER AND JOINER Impression: No intracranial hemorrhage, mass, or acute infarct. Atrophy and chronic white matter changes, as above.
[2022-12-12 11:15] LABS: Glucose Point of Care 134 mg/dl (65-105)
[2022-12-12] MEDS: SODIUM CHLORIDE 0.9% IV 1,000 ML 999 ML IV CONT ×2 (11:20→12:24)
--- NOTE | 2022-12-12 11:32 | ED.GENADULT ---
HPI - General Adult General Chief complaint: Altered Mental Status Stated complaint: altered mental status Time Seen by Provider: 12/12/22 11:27 History of Present Illness HPI narrative: The patient is an 87-year-old woman with multiple comorbidities including dementia, COPD, atrial fibrillation on Eliquis, hypertension, hyperlipidemia. For hypertension, she takes losartan 50 mg in the morning and metoprolol 25 mg b.i.d.. Also has history of UTIs and syncope as well as a DVT. [facility]00 a.m.. At 10:20 a.m., she was noted to have decreased verbal response, decreased level of consciousness, and generalized weakness. She was noted to have slurred speech at 10:30 a.m. with drooping of the left eye. She was brought here for further evaluation. She became more responsive upon arrival. The patient currently denies any symptoms and feels that she is back to baseline. No attend[facility] from the [facility] are with her at present. Initial Accu-Chek 134 on arrival. She knows where she is and denies any complaints. Denies a headache or feeling dizzy or lightheaded. Denies any speech difficulty or dysarthria or aphasia. Denies any weakness in upper or lower extremities. Related Data Home Medications Medication Instructions Recorded Confirmed bupropion HCl 100 mg tablet,12 hr 100 mg PO BID 04/28/21 12/12/22 sustained-release losartan 50 mg tablet 50 mg PO QAM 04/28/21 12/12/22 metoprolol tartrate 25 mg tablet 25 mg PO BID 04/28/21 12/12/22 multivitamin with minerals-folic 1 tablet PO DAILY 04/28/21 12/12/22 acid 0.4 mg tablet (Adult One Daily Multivitamin) primidone 50 mg tablet 50 mg PO HS 04/28/21 12/12/22 rosuvastatin 10 mg tablet 10 mg PO DAILY 04/28/21 12/12/22 bisacodyl 5 mg tablet,delayed 5 mg PO PRN PRN Constipation 09/30/21 12/12/22 release (Dulcolax (bisacodyl)) apixaban 5 mg tablet (Eliquis) 5 mg PO BID 03/21/22 12/12/22 aspirin 81 mg chewable tablet 81 mg PO DAILY 03/21/22 12/12/22 bisacodyl 10 mg rectal suppository 10 mg RECTAL DAILY PRN Constipation 03/21/22 12/12/22 docusate sodium 100 mg capsule 100 mg PO BID 03/21/22 12/12/22 (Colace) tramadol 50 mg tablet 50 mg PO Q4H PRN Pain 03/21/22 12/12/22 risperidone 0.5 mg tablet 0.5 mg PO BID 12/12/22 12/12/22 Allergies Allergy/AdvReac Type Severity Reaction Status Date / Time No Known Allergies Allergy Verified 12/12/22 11:39 Review of Systems Review of Systems: All systems reviewed & are unremarkable except as noted in HPI and below Constitutional: Constitutional: Reports no additional constitutional complaints, Denies anorexia, Denies body ache(s), Denies chills, Denies excessive sweating, Reports fatigue ( Transient, resolved at present), Denies fever(s), Denies frequent falls, Denies headache(s), Reports malaise ( Transient, resolved at present), Denies poor appetite and Reports weakness ( Transient, resolved at present) Eyes: Eyes: Reports no additional eye complaints, Denies blurry vision, Denies change in vision, Denies irritation, Denies itchy eyes and Denies photophobia ENT: Reports system reviewed and no additional complaints, except as documented, Reports Normal hearing present, Denies change in voice, Denies dysphagia, Denies vertigo, Denies dizziness, Denies ear discharge, Denies headache(s), Denies hearing loss, Denies hoarseness, Denies nasal congestion, Denies neck pain, Denies sinus pressure, Denies sore throat and Denies throat swelling Cardiovascular: Cardiovascular: Reports no additional cardiovascular complaints, Denies chest pain, Denies syncope, Denies rapid heart rate, Denies irregular heart rhythm, Denies leg edema, Denies dyspnea and Denies slow heart rate Respiratory: Respiratory: Reports no additional respiratory complaints, Denies cough, Denies dyspnea, Denies stridor and Denies wheezing Gastrointestinal: Gastrointestinal: Reports no additional gastrointestinal complaints, Denies abdominal pa
--- NOTE | 2022-12-12 11:42 | ECG_ITS ---
Measurements Intervals Lyons Rate: 67 P: 199 ND: 282 QRS: -36 QRSD: 86 T: 90 QT: 434 QTc: 460 Interpretive Statements ELECTRONIC ATRIAL PACEMAKER LEFT AXIS DEVIATION CONSIDER INFERIOR INFARCT, AGE INDETERMINATE BORDERLINE ST-T WAVE ABNORMALITY- HIGH LATERAL ELADS BASELINE ARTIFACT- I, II, III ABNORMAL ECG COMPARED TO ECG 06/16/2021 20:17:25 NO SIGNIFICANT CHANGES Electronically Signed On 12-12-2022 13:02:49 SAS PROGRAMMER ANALYST by Emanuel Brandon D.O.
[2022-12-12 12:35] LABS: Basophils Absolute Auto 0.07 K/mm3 (0.00-0.10); Basophils Percent Auto 0.6 % (0.0-1.0); Eosinophils Absolute Auto 0.48 K/mm3 (0.02-0.50); Eosinophils Percent Auto 4.2 % (1.0-6.0); Hematocrit 44.3 % (35.0-42.0); Hemoglobin 14.1 g/dL (11.7-13.8); Immature Granulocyte Absolute 0.08 K/mm3 (0.00-0.00); Immature Granulocyte Percent A 0.7 % (0.0-0.0); Lymphocytes Absolute Auto 2.08 K/mm3 (1.10-4.50); Mean Corpuscular HGB Conc 31.8 g/dL (32.0-36.0); Mean Corpuscular Hemoglobin 30.5 pg (27.0-31.0); Mean Corpuscular Volume 95.7 fL (78.0-102.0); Mean Platelet Volume 9.5 fl (9.2-11.8); Monocytes Absolute Auto 1.26 K/mm3 (0.10-0.90); Monocytes Percent Auto 10.9 % (2.0-11.0); Neutrophils Absolute Auto 7.6 K/mm3 (1.7-7.2); Neutrophils Percent Auto 65.6 % (50.0-70.0); Platelet Count Result 246 K/mm3 (150-420); Red Blood Count 4.63 M/mm3 (4.20-5.40); Red Cell Distribution Width 15.7 % (11.6-14.4); White Blood Count 11.5 K/mm3 (4.8-10.8)
[2022-12-12 12:57] LABS: Alanine Aminotransferase 18 U/L (14-59); Albumin Level 3.3 g/dL (3.4-5.0); Alkaline Phosphatase 65 U/L (46-116); Anion Gap 8 mmol/L (8-16); Aspartate Amino Transferase 19 U/L (15-37); Bilirubin,Total 0.5 mg/dL (0.00-1.00); Blood Urea Nitrogen 18 mg/dL (7-18); Calcium 8.6 mg/dL (8.5-10.1); Carbon Dioxide 28 mmol/L (21-32); Chloride 103 mmol/L (98-108); Estimated CRCL calculation 33 ml/min; Estimated Glomerular Filt Rate 39; Glucose 108 mg/dL (70-99); NT Pro B Type Natriuretic Pept 2625 pg/mL (0-450); Osmolality Calculated 290 mOsm/kg (285-295); Potassium 4.2 mmol/L (3.5-5.1); Sodium 139 mmol/L (136-145); Total Protein 7.4 g/dL (6.4-8.2)
[2022-12-12 12:58] LABS: CRP < 0.5 mg/dL (0.0-0.9); Ethanol < 3 mg/dL (0-6); Lactic Acid Reflex 1.9 mmol/L (0.4-2.0); Magnesium 2.1 mg/dL (1.8-2.4)
--- NOTE | 2022-12-12 13:03 | PC.NURSE ---
PT IS LYING ON STRETCHER IN EXAM ROOM AWAITING RESULTS AT THIS TIME. PT IS QUICKER TO RESPOND TO QUESTIONS, AND ANGRY ABOUT ALL TREATMENT. PT ALLOWS TREATMENT, HOWEVER IS FIESTY WITH RESPONSES. PT WAS GIVEN THE 2ND LITER OF NS PER VO BY DR ESQUIVEL DUE TO HYPOTENSION. PT IS TOLERATING WELL. LAB REPORTED TROPONIN OF 113, ERP IS AWARE.
[2022-12-12 13:04] LABS: Strep Group A RT-PCR NOT DETECTED (Negative)
[2022-12-12 13:12] LABS: Influenza A QL RT-PCR Negative (Negative); Influenza B QL RT-PCR Negative (Negative); SARS-CoV-2 RNA PCR Negative (Negative)
--- NOTE | 2022-12-12 13:12 | PC.NURSE ---
SPOKE WITH DAUGHTER ARNIE THOMPSON AT THIS TIME. ERP IS SPEAKING WITH DAUGHTER TO DETERMINE PLAN OF CARE. WILL CONTINUE TO MONITOR.
[2022-12-12 13:13] LABS: RSV RNA, RT-PCR Negative (Negative)
--- NOTE | 2022-12-12 13:18 | PC.NURSE ---
PT IS REFUSING URINE SPECIMEN AT THIS TIME. WILL CONTINUE TO MONITOR.
--- NOTE | 2022-12-12 14:30 | ADMGEN ---
This patient, Regina Ghosh, was admitted to 2nd Floor Room 207-1. Patient/family oriented to hospital policies and general routines including ID bracelet, bed and alarms, visiting hours, pain management, procedures, bathroom and other care routines, personal items, smoking policy, room service/diet, and visiting hours. Information on how to activate the Rapid Response Team has been discussed. Patient/Family are encouraged to report perceived risks to care and to ask questions if they do not understand what they are told or what they should do.
[2022-12-12] MEDS: risperiDONE 0.25 MG TABLET 0.5 MG PO (20:46)
[2022-12-12] MEDS: PRIMIDONE 50 MG TABLET PO (20:46)
[2022-12-12] MEDS: APIXABAN 2.5 MG TABLET 5 MG BY MOUTH (20:46)
[2022-12-12] MEDS: METOPROLOL TARTRATE 25 MG TABLET PO (20:46)
[2022-12-13] VITALS: BP 156/66; PULSE 78; RESP 20; TEMP 36.3; O2SAT 96
[2022-12-13 05:39] LABS: Add Urine Microscopic? YES; Appearance Urine Clear (Clear); Bilirubin Urine Negative (Negative); Blood Urine 3+ (Negative); Color Urine Yellow (Yellow); Glucose Urine UA Negative (Negative); Ketones Urine Negative (Negative); Leukocyte Esterase Ur Negative LEU/UL (Negative); Nitrate Urine Negative (Negative); Protein Urine Negative (Negative); Urobilinogen Urine 0.2 mg/dL (0.2-1.0)
[2022-12-13 05:45] LABS: RBC Urine >75 /hpf (0-2); WBC Urine 0-3 /hpf (0-3)
[2022-12-13 05:46] LABS: Bacteria Urine 1+ /hpf; Squamous Epithelial Cell Urine Rare /hpf (Few)
[2022-12-13 05:47] LABS: Amphetamine Screen Urine Negative (Negative); Barbiturate Screen Urine Positive (Negative); Benzodiazepines Screen Urine Negative (Negative); Cannabinoid Screen Urine Negative (Negative); Cocaine Screen Urine Negative (Negative); Methadone Screen Urine Negative (Negative); Opiate Screen Urine Negative (Negative); Phencyclidine Screen Urine Negative (Negative)
[2022-12-13 08:00] VITALS: BP 122/60; PULSE 65; RESP 14; TEMP 36.2; O2SAT 95
--- NOTE | 2022-12-13 08:15 | PM.SD2 ---
Same Day Admit/Disch: HPI History of Present Illness Chief complaint: MARY/altered mental status/Elevated Trop Narrative: Regina Ghosh is a 87 year old female HPI - General Adult General Chief complaint: Altered Mental Status Stated complaint: altered mental status Time Seen by Provider: 12/12/22 11:27 History of Present Illness HPI narrative: ? The patient is an 87-year-old woman with multiple comorbidities including dementia, COPD, atrial fibrillation on Eliquis, hypertension, hyperlipidemia.? For hypertension, she takes losartan 50 mg in the morning and metoprolol 25 mg b.i.d..? Also has history of UTIs and syncope as well as a DVT. [facility]m..? At 10:20 a.m., she was noted to have decreased verbal response, decreased level of consciousness, and generalized weakness.? She was noted to have slurred speech at 10:30 a.m. with drooping of the left eye.? She was brought here for further evaluation.? She became more responsive upon arrival. The patient currently denies any symptoms and feels that she is back to baseline.? No attendants from the prison are with her at present.? Initial Accu-Chek 134 on arrival.? ? She knows where she is and denies any complaints.? Denies a headache or feeling dizzy or lightheaded.? Denies any speech difficulty or dysarthria or aphasia.? Denies any weakness in upper or lower extremities. 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 COPD (chronic obstructive pulmonary disease) Dementia HLD (hyperlipidemia) HTN (hypertension) Social History Social History Smoking packs per day: 1 Smoking cigarettes per day: 20.0 Years smoked: 30 Smoking pack-years: 30.00 Smoking status: Former smoker Tobacco type: cigarettes Second hand tobacco smoke exposure: No Smoking end date: 05/20/16 Alcohol intake: never Drinks per week: 6 Substance use: never Substance use type: does not use Lack of Transportation: No Lack of Food: Never True Current Housing: I Have Housing Concerned About Future Housing: No Difficulty Paying Gas/Electric Bills: No Difficulty Paying for Meds: No Currently Unemployed: No Education: High School Diploma/GED Difficulty w/ Childcare or Family Care: No Living arrangements: prison Gender identity (if verbalized by the patient): Female Spiritual care concerns: No Same Day Admit/Disch: Med Pre-admit Medications Home Medications Medication Instructions Recorded Confirmed Type bupropion HCl 100 mg tablet,12 hr 100 mg PO BID 04/28/21 12/12/22 History sustained-release losartan 50 mg tablet 50 mg PO QAM 04/28/21 12/12/22 History metoprolol tartrate 25 mg tablet 25 mg PO BID 04/28/21 12/12/22 History multivitamin with minerals-folic 1 tablet PO DAILY 04/28/21 12/12/22 History acid 0.4 mg tablet (Adult One Daily Multivitamin) primidone 50 mg tablet 50 mg PO HS 04/28/21 12/12/22 History rosuvastatin 10 mg tablet 10 mg PO DAILY 04/28/21 12/12/22 History bisacodyl 5 mg tablet,delayed 5 mg PO PRN PRN Constipation 09/30/21 12/12/22 History release (Dulcolax (bisacodyl)) apixaban 5 mg tablet (Eliquis) 5 mg PO BID 03/21/22 12/12/22 History aspirin 81 mg chewable tablet 81 mg PO DAILY 03/21/22 12/12/22 History bisacodyl 10 mg rectal suppository 10 mg RECTAL DAILY PRN Constipation 03/21/22 12/12/22 History docusate sodium 100 mg capsule 100 mg PO BID 03/21/22 12/12/22 History (Colace) tramadol 50 mg tablet 50 mg PO Q4H PRN Pain 03/21/22 12/12/22 History cephalexin 500 mg capsule 500 mg PO DAILY 30 days #30 caps 04/07/22 12/12/22 Rx risperidone 0.5 mg tablet 0.5 mg PO BID 12/12/22 12/12/22 History sulfamethoxazole 800 1 tablet PO Q12H #10 tabs 12/13/22 Rx mg-trimethoprim 160 mg tablet (Bactrim DS) Exam Narrative: GENER
[2022-12-13] MEDS: SULFAMETHOXAZOLE/TRIMETHOPRIM 800/160 MG DS TABLET 1 TAB PO (09:04)
[2022-12-13] MEDS: APIXABAN 2.5 MG TABLET 5 MG BY MOUTH (09:04)
[2022-12-13] MEDS: risperiDONE 0.25 MG TABLET 0.5 MG PO (09:04)
[2022-12-13] MEDS: ASPIRIN 81 MG CHEWABLE TABLET PO (09:04)
[2022-12-13 09:05] VITALS: PULSE 65
[2022-12-13] MEDS: ROSUVASTATIN 10 MG TABLET PO (09:05)
[2022-12-13] MEDS: METOPROLOL TARTRATE 25 MG TABLET PO (09:05)
--- NOTE | 2022-12-13 10:30 | PC.NURSE ---
Pt discharged back to [facility]. VSS. Pt alert to self but not to place or time. Pt has equal strength bilaterally, no facial droop, no difficulty swallowing. activity aide from [facility] came to the hospital to pick her up.
--- NOTE | 2022-12-14 08:23 | PC.NURSE ---
custodial nurse states they received and understood the discharge instructions.
== END 2022-12-13 10:00 ==
LOC: CHSED 13:52 → CHS2ND 14:00
PROVIDERS: Admitting Provider Internal Medicine; Emergency Provider Emergency Medicine; PCP Internal Medicine; Visit Provider Internal Medicine
DX: I95.89 Other hypotension (principal); I24.8 Other forms of acute ischemic heart disease; J44.9 Chronic obstructive pulmonary disease, unspecified; I48.20 Chronic atrial fibrillation, unspecified; I10 Essential (primary) hypertension; I71.20 Thoracic aortic aneurysm, without rupture, unspecified; E78.5 Hyperlipidemia, unspecified; F03.90 Unspecified dementia, unspecified severity, without behavioral disturbance, psychotic disturbance, mood disturbance, and anxiety; Z66 Do not resuscitate; Z20.822 Contact with and (suspected) exposure to COVID-19; Z95.0 Presence of cardiac pacemaker; Z79.01 Long term (current) use of anticoagulants; Z79.82 Long term (current) use of aspirin; Z79.899 Other long term (current) drug therapy; Z87.891 Personal history of nicotine dependence
CPT/HCPCS: 36415; 70450; 71045; 80053; 80307; 81001; 82948; 83605; 83735; 83880; 84484; 85025; 86140; 87637; 87651; 93005; 96360; 96361; 99285; A9270; G0378; J7030

== ENCOUNTER 2022-12-29 06:33 | Outpatient (NON) | payer MEDICARE, SELFPAY ==
[2022-12-29 06:59] LABS: Add Urine Microscopic? YES; Appearance Urine Slightly Cloudy (Clear); Basophils Absolute Auto 0.08 K/mm3 (0.00-0.10); Basophils Percent Auto 0.9 % (0.0-1.0); Bilirubin Urine Negative (Negative); Blood Urine 3+ (Negative); Color Urine Light Yellow (Yellow); Eosinophils Absolute Auto 0.66 K/mm3 (0.02-0.50); Eosinophils Percent Auto 7.2 % (1.0-6.0); Glucose Urine UA Negative (Negative); Hematocrit 43.3 % (35.0-42.0); Hemoglobin 13.8 g/dL (11.7-13.8); Immature Granulocyte Absolute 0.04 K/mm3 (0.00-0.00); Immature Granulocyte Percent A 0.4 % (0.0-0.0); Ketones Urine Negative (Negative); Leukocyte Esterase Ur Negative LEU/UL (Negative); Lymphocytes Absolute Auto 2.06 K/mm3 (1.10-4.50); Lymphocytes Percent Auto 22.4 % (18.0-42.0); Mean Corpuscular HGB Conc 31.9 g/dL (32.0-36.0); Mean Corpuscular Volume 94.1 fL (78.0-102.0); Mean Platelet Volume 9.6 fl (9.2-11.8); Monocytes Absolute Auto 0.79 K/mm3 (0.10-0.90); Monocytes Percent Auto 8.6 % (2.0-11.0); Neutrophils Absolute Auto 5.6 K/mm3 (1.7-7.2); Neutrophils Percent Auto 60.5 % (50.0-70.0); Nitrate Urine Negative (Negative); Platelet Count Result 247 K/mm3 (150-420); Protein Urine Negative (Negative); Red Cell Distribution Width 14.5 % (11.6-14.4); Specific Grav Ur 1.015 (1.010-1.020); Urobilinogen Urine 0.2 mg/dL (0.2-1.0); White Blood Count 9.2 K/mm3 (4.8-10.8)
[2022-12-29 07:24] LABS: Bacteria Urine Trace /hpf; RBC Urine >75 /hpf (0-2); Squamous Epithelial Cell Urine Rare /hpf (Few); WBC Urine None seen /hpf (0-3)
[2022-12-29 08:05] LABS: Alanine Aminotransferase 20 U/L (14-59); Albumin Level 3.3 g/dL (3.4-5.0); Alkaline Phosphatase 66 U/L (46-116); Anion Gap 7 mmol/L (8-16); Aspartate Amino Transferase 16 U/L (15-37); Bilirubin,Total 0.4 mg/dL (0.00-1.00); Blood Urea Nitrogen 15 mg/dL (7-18); Calcium 8.9 mg/dL (8.5-10.1); Carbon Dioxide 29 mmol/L (21-32); Chloride 103 mmol/L (98-108); Estimated Glomerular Filt Rate 57; Glucose 100 mg/dL (70-99); NT Pro B Type Natriuretic Pept 437 pg/mL (0-450); Osmolality Calculated 288 mOsm/kg (285-295); Potassium 4.7 mmol/L (3.5-5.1); Sodium 139 mmol/L (136-145); Total Protein 6.5 g/dL (6.4-8.2)
== END 2022-12-29 06:34 | disposition home or self-care (01) ==
LOC: CHSLAB 06:35
PROVIDERS: Visit Provider Internal Medicine
DX: I71.60 Thoracoabdominal aortic aneurysm, without rupture, unspecified (principal); I48.91 Unspecified atrial fibrillation; J44.9 Chronic obstructive pulmonary disease, unspecified; I10 Essential (primary) hypertension; N39.0 Urinary tract infection, site not specified; I50.9 Heart failure, unspecified
CPT/HCPCS: 36415; 80053; 81001; 83880; 85025

== ENCOUNTER 2023-04-24 12:03 | Outpatient (NON) | payer MEDICARE, SELFPAY ==
[2023-04-24 12:13] LABS: Basophils Absolute Auto 0.08 K/mm3 (0.00-0.10); Basophils Percent Auto 0.7 % (0.0-1.0); Eosinophils Absolute Auto 0.85 K/mm3 (0.02-0.50); Eosinophils Percent Auto 7.2 % (1.0-6.0); Hematocrit 45.5 % (35.0-42.0); Hemoglobin 14.3 g/dL (11.7-13.8); Immature Granulocyte Absolute 0.09 K/mm3 (0.00-0.00); Immature Granulocyte Percent A 0.8 % (0.0-0.0); Lymphocytes Absolute Auto 2.08 K/mm3 (1.10-4.50); Lymphocytes Percent Auto 17.6 % (18.0-42.0); Mean Corpuscular HGB Conc 31.4 g/dL (32.0-36.0); Mean Corpuscular Hemoglobin 30.4 pg (27.0-31.0); Mean Corpuscular Volume 96.8 fL (78.0-102.0); Mean Platelet Volume 10.5 fl (9.2-11.8); Monocytes Absolute Auto 0.74 K/mm3 (0.10-0.90); Monocytes Percent Auto 6.3 % (2.0-11.0); Neutrophils Percent Auto 67.4 % (50.0-70.0); Platelet Count Result 267 K/mm3 (150-420); Red Cell Distribution Width 13.9 % (11.6-14.4); White Blood Count 11.8 K/mm3 (4.8-10.8)
[2023-04-24 12:29] LABS: Alanine Aminotransferase 17 U/L (14-59); Albumin Level 3.2 g/dL (3.4-5.0); Alkaline Phosphatase 71 U/L (46-116); Anion Gap 10 mmol/L (8-16); Aspartate Amino Transferase 20 U/L (15-37); Bilirubin,Total 0.5 mg/dL (0.00-1.00); Blood Urea Nitrogen 16 mg/dL (7-18); Calcium 8.7 mg/dL (8.5-10.1); Carbon Dioxide 26 mmol/L (21-32); Chloride 103 mmol/L (98-108); Estimated Glomerular Filt Rate 47; Glucose 151 mg/dL (70-99); Osmolality Calculated 292 mOsm/kg (285-295); Potassium 4.2 mmol/L (3.5-5.1); Sodium 139 mmol/L (136-145); Total Protein 7.1 g/dL (6.4-8.2)
[2023-04-28 17:13] LABS: Cholesterol 130 mg/dL (0-200); Creatine Kinase 83 U/L (26-192); Ferritin 23 ng/mL (8-252); HDL Direct 59 mg/dL (40-60); Iron 91 ug/dL (50-170); LDL Cholesterol Calculated 56 mg/dL (<130); NT Pro B Type Natriuretic Pept 361 pg/mL (0-450); Triglycerides 76 mg/dL (0-150); Vitamin B12 432 pg/mL (193-986)
== END 2023-04-24 12:04 | disposition home or self-care (01) ==
LOC: CHSLAB 12:05
PROVIDERS: Visit Provider Internal Medicine
DX: I10 Essential (primary) hypertension (principal); I48.91 Unspecified atrial fibrillation; Z79.899 Other long term (current) drug therapy; E78.2 Mixed hyperlipidemia; D50.9 Iron deficiency anemia, unspecified; R06.02 Shortness of breath
CPT/HCPCS: 36415; 80053; 80061; 82550; 82607; 82728; 83540; 83880; 85025

== ENCOUNTER 2023-04-25 11:49 | Outpatient (NON) | payer MEDICARE, SELFPAY ==
[2023-04-25 11:58] LABS: Appearance Urine Turbid (Clear); Bilirubin Urine 3+ (Negative); Blood Urine 3+ (Negative); Glucose Urine UA Trace (Negative); Ketones Urine 1+ (Negative); Leukocyte Esterase Ur 2+ (Negative); Nitrate Urine Positive (Negative); Protein Urine 3+ (Negative); Urobilinogen Urine >=8.0 mg/dL (0.2-1.0)
[2023-04-25 12:06] LABS: Add Urine Microscopic? YES; Bacteria Urine 1+ /hpf; Color Urine Dark Brown (Yellow); RBC Urine >75 /hpf (0-2); Squamous Epithelial Cell Urine Few /hpf (Few)
== END 2023-04-25 11:50 | disposition home or self-care (01) ==
LOC: CHSLAB 11:50
PROVIDERS: Visit Provider Internal Medicine
DX: N39.0 Urinary tract infection, site not specified (principal)
CPT/HCPCS: 81001; 87086; 87088

== ENCOUNTER 2023-08-30 06:55 | Outpatient (NON) | payer MEDICARE, SELFPAY ==
[2023-08-30 07:41] LABS: Basophils Absolute Auto 0.09 K/mm3 (0.00-0.10); Eosinophils Absolute Auto 0.71 K/mm3 (0.02-0.50); Eosinophils Percent Auto 7.9 % (1.0-6.0); Hematocrit 45.1 % (35.0-42.0); Hemoglobin 14.3 g/dL (11.7-13.8); Immature Granulocyte Absolute 0.04 K/mm3 (0.00-0.00); Immature Granulocyte Percent A 0.4 % (0.0-0.0); Lymphocytes Absolute Auto 1.85 K/mm3 (1.10-4.50); Lymphocytes Percent Auto 20.6 % (18.0-42.0); Mean Corpuscular HGB Conc 31.7 g/dL (32.0-36.0); Mean Corpuscular Hemoglobin 29.1 pg (27.0-31.0); Mean Corpuscular Volume 91.7 fL (78.0-102.0); Mean Platelet Volume 10.4 fl (9.2-11.8); Monocytes Absolute Auto 0.86 K/mm3 (0.10-0.90); Monocytes Percent Auto 9.6 % (2.0-11.0); Neutrophils Absolute Auto 5.4 K/mm3 (1.7-7.2); Neutrophils Percent Auto 60.5 % (50.0-70.0); Platelet Count Result 290 K/mm3 (150-420); Red Blood Count 4.92 M/mm3 (4.20-5.40)
[2023-08-30 07:46] LABS: Appearance Urine Cloudy (Clear); Bilirubin Urine 2+ (Negative); Blood Urine 3+ (Negative); Glucose Urine UA Negative (Negative); Ketones Urine Trace (Negative); Leukocyte Esterase Ur 1+ (Negative); Nitrate Urine Positive (Negative); Protein Urine 3+ (Negative); Specific Grav Ur 1.025 (1.010-1.020); pH Urine 6.5 (5.0-8.0)
[2023-08-30 07:57] LABS: Color Urine Dark Brown (Yellow)
[2023-08-30 07:58] LABS: Add Urine Microscopic? YES; Bacteria Urine 1+ /hpf; RBC Urine >100 /hpf (0-2); Squamous Epithelial Cell Urine Few /hpf (Few)
[2023-08-30 08:14] LABS: Alanine Aminotransferase 17 U/L (14-59); Albumin Level 2.9 g/dL (3.4-5.0); Alkaline Phosphatase 65 U/L (46-116); Anion Gap 9 mmol/L (8-16); Aspartate Amino Transferase 16 U/L (15-37); Bilirubin,Total 0.6 mg/dL (0.00-1.00); Blood Urea Nitrogen 12 mg/dL (7-18); Calcium 8.9 mg/dL (8.5-10.1); Carbon Dioxide 26 mmol/L (21-32); Chloride 107 mmol/L (98-108); Estimated Glomerular Filt Rate 51; Glucose 99 mg/dL (70-99); NT Pro B Type Natriuretic Pept 1078 pg/mL (0-450); Osmolality Calculated 293 mOsm/kg (285-295); Potassium 3.9 mmol/L (3.5-5.1); Sodium 142 mmol/L (136-145); Total Protein 5.9 g/dL (6.4-8.2)
== END 2023-08-30 06:56 | disposition home or self-care (01) ==
LOC: CHSLAB 06:57
PROVIDERS: Visit Provider Internal Medicine
DX: N39.0 Urinary tract infection, site not specified (principal); J44.9 Chronic obstructive pulmonary disease, unspecified; I48.91 Unspecified atrial fibrillation; I10 Essential (primary) hypertension; R82.90 Unspecified abnormal findings in urine; I50.9 Heart failure, unspecified
CPT/HCPCS: 36415; 80053; 81001; 83880; 85025; 87086; 87186

== ENCOUNTER 2023-09-13 06:29 | Outpatient (NON) | payer MEDICARE, SELFPAY ==
[2023-09-13 07:52] LABS: Appearance Urine Cloudy (Clear); Bilirubin Urine 2+ (Negative); Blood Urine 3+ (Negative); Glucose Urine UA Negative (Negative); Ketones Urine Trace (Negative); Leukocyte Esterase Ur Negative (Negative); Nitrate Urine Negative (Negative); Protein Urine 2+ (Negative)
[2023-09-13 08:02] LABS: Add Urine Microscopic? YES; Bacteria Urine 1+ /hpf; Color Urine Dark Brown (Yellow); RBC Urine >100 /hpf (0-2); Squamous Epithelial Cell Urine Occasional /hpf (Few); WBC Urine 0-3 /hpf (0-3)
== END 2023-09-13 06:30 | disposition home or self-care (01) ==
LOC: CHSLAB 06:34
PROVIDERS: Visit Provider Internal Medicine
DX: N39.0 Urinary tract infection, site not specified (principal)
CPT/HCPCS: 81001; 87077; 87086; 87088; 87186

== ENCOUNTER 2023-09-16 09:33 | Outpatient (CLI) | payer MEDICARE, SELFPAY ==
--- NOTE | 2023-09-16 09:44 | PC.NURSE ---
pt arrives for outpatient iv insertion with order from dr mai from [facility] assisted. pt arrives via wheelchair with staff. multiple attempts for iv insertion unsuccessful at assisted. iv insertion x1 per bianca case. pt returned to assisted with staff.
== END 2023-09-16 09:46 | disposition home or self-care (01) ==
PROVIDERS: PCP Internal Medicine; Visit Provider Internal Medicine
DX: Z45.2 Encounter for adjustment and management of vascular access device (principal)
CPT/HCPCS: 99211; G0463

== ENCOUNTER 2023-09-18 06:51 | Outpatient (NON) | payer MEDICARE, SELFPAY ==
[2023-09-18 07:04] LABS: Vancomycin Trough 17.9 ug/mL (10.0-15.0)
== END 2023-09-18 06:52 | disposition home or self-care (01) ==
LOC: CHSLAB 06:54
PROVIDERS: Visit Provider Internal Medicine
DX: N39.0 Urinary tract infection, site not specified (principal); Z16.21 Resistance to vancomycin
CPT/HCPCS: 36415; 80202

== ENCOUNTER 2023-09-18 18:49 | Emergency (ER) | payer MEDICARE, SELFPAY ==
[2023-09-18 18:49] VITALS: BP 129/81; PULSE 78; RESP 16; TEMP 36.3; O2SAT 95
[2023-09-18 19:02] VITALS: BP 129/81; PULSE 78; RESP 16; TEMP 36.3; O2SAT 95
--- NOTE | 2023-09-18 19:17 | ED.GENADULT ---
HPI - General Adult General Chief complaint: Unspecified Stated complaint: iv establishment Time Seen by Provider: 09/18/23 18:55 History of Present Illness HPI narrative: 87yo [facility] access because they were unable to obtain it for her to get daily Vancomycin, which she was getting for a UTI. Related Data Home Medications Medication Instructions Recorded Confirmed bupropion HCl 100 mg tablet,12 hr 100 mg PO BID 04/28/21 09/18/23 sustained-release losartan 50 mg tablet 50 mg PO QAM 04/28/21 09/18/23 metoprolol tartrate 25 mg tablet 25 mg PO BID 04/28/21 09/18/23 multivitamin with minerals-folic 1 tablet PO DAILY 04/28/21 09/18/23 acid 0.4 mg tablet (Adult One Daily Multivitamin) primidone 50 mg tablet 50 mg PO HS 04/28/21 09/18/23 rosuvastatin 10 mg tablet 10 mg PO DAILY 04/28/21 09/18/23 bisacodyl 5 mg tablet,delayed 5 mg PO PRN PRN Constipation 09/30/21 09/18/23 release (Dulcolax (bisacodyl)) apixaban 5 mg tablet (Eliquis) 5 mg PO BID 03/21/22 09/18/23 aspirin 81 mg chewable tablet 81 mg PO DAILY 03/21/22 09/18/23 bisacodyl 10 mg rectal suppository 10 mg RECTAL DAILY PRN Constipation 03/21/22 09/18/23 docusate sodium 100 mg capsule 100 mg PO BID 03/21/22 09/18/23 (Colace) tramadol 50 mg tablet 50 mg PO Q4H PRN Pain 03/21/22 09/18/23 risperidone 0.5 mg tablet 0.5 mg PO BID 12/12/22 09/18/23 Allergies Allergy/AdvReac Type Severity Reaction Status Date / Time No Known Allergies Allergy Verified 12/12/22 11:39 Review of Systems Review of Systems: All systems reviewed & are unremarkable except as noted in HPI and below Constitutional: Constitutional: Denies chills and Denies fever(s) ENT: Denies dysphagia Cardiovascular: Cardiovascular: Denies chest pain Respiratory: Respiratory: Denies dyspnea Gastrointestinal: Gastrointestinal: Denies abdominal pain PMF Past Medical History Medical History Afib 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 COPD (chronic obstructive pulmonary disease) Dementia HLD (hyperlipidemia) HTN (hypertension) Social History Social History Smoking packs per day: 1 Smoking cigarettes per day: 20.0 Years smoked: 30 Smoking pack-years: 30.00 Smoking status: Former smoker Tobacco type: cigarettes Second hand tobacco smoke exposure: No Smoking end date: 05/20/16 Alcohol intake: never Drinks per week: 6 Substance use: never Substance use type: does not use Lack of Transportation: No Lack of Food: Never True Current Housing: I Have Housing Concerned About Future Housing: No Difficulty Paying Gas/Electric Bills: No Difficulty Paying for Meds: No Currently Unemployed: No Education: High School Diploma/GED Difficulty w/ Childcare or Family Care: No Living arrangements: jail Gender identity (if verbalized by the patient): Female Spiritual care concerns: No Exam Const: General: healthy appearing and no acute distress Nutritional Appearance: well nourished Eyes: Conjunctivae: conjunctivae normal Resp: Effort & Inspection: normal respiratory effort Cardio: Rate: regular rate Rhythm: regular rhythm Heart sounds: no murmurs GI: Inspection: non-distended GI Palp: Yes Soft to palpation and No Tenderness to palpation present (GI) Skin: General skin exam: normal color, no jaundice and no pallor Course Vital Signs Vital signs: Vital Signs Temperature 36.3 C L 09/18/23 18:49 Pulse Rate 78 09/18/23 18:49 Respiratory Rate 16 09/18/23 18:49 Blood Pressure 129/81 09/18/23 18:49 Pulse Oximetry 95 09/18/23 18:49 Oxygen Delivery Room Air 09/18/23 18:49 Temperature 36.3 C L 09/18/23 19:02 Pulse Rate 78 09/18/23 19:02 Respiratory Rate 16 09/18/23 19:02 Blood Pressure 129/81 09/18/23 19:02 Pulse Oximetry 95 09/18/23
[2023-09-18 19:23] VITALS: BP 140/87; PULSE 68; RESP 18; TEMP 36.6; O2SAT 97
== END 2023-09-18 19:32 ==
PROVIDERS: Emergency Provider Emergency Medicine; PCP Internal Medicine
DX: Z45.2 Encounter for adjustment and management of vascular access device (principal); I48.91 Unspecified atrial fibrillation; E78.5 Hyperlipidemia, unspecified; I10 Essential (primary) hypertension; F03.90 Unspecified dementia, unspecified severity, without behavioral disturbance, psychotic disturbance, mood disturbance, and anxiety; J44.9 Chronic obstructive pulmonary disease, unspecified; Z79.899 Other long term (current) drug therapy; Z79.01 Long term (current) use of anticoagulants; Z79.82 Long term (current) use of aspirin; Z87.891 Personal history of nicotine dependence
CPT/HCPCS: 36415; 80202; 99281

== ENCOUNTER 2023-09-20 10:02 | Outpatient (CLI) | payer MEDICARE, SELFPAY ==
--- NOTE | 2023-09-20 10:26 | PC.NURSE ---
Presents for insertion of peripheral IV site. #22 gauge inserted into right antecubital, good blood return, flushes well, covered with opsite and coban for security. senior care contacted for lemon picker, advised to be careful getting sweater off due to IV site underneath in bend of the arm.
== END 2023-09-20 10:03 | disposition home or self-care (01) ==
LOC: CHSTREATRM 10:04
PROVIDERS: PCP Internal Medicine; Visit Provider Internal Medicine
DX: Z45.2 Encounter for adjustment and management of vascular access device (principal)
CPT/HCPCS: 99211; G0463

== ENCOUNTER 2023-09-23 06:45 | Outpatient (NON) | payer MEDICARE, SELFPAY ==
[2023-09-23 07:13] LABS: Eosinophils Absolute Auto 0.58 K/mm3 (0.02-0.50); Eosinophils Percent Auto 5.7 % (1.0-6.0); Hematocrit 36.8 % (35.0-42.0); Hemoglobin 11.4 g/dL (11.7-13.8); Immature Granulocyte Absolute 0.05 K/mm3 (0.00-0.00); Immature Granulocyte Percent A 0.5 % (0.0-0.0); Lymphocytes Absolute Auto 1.34 K/mm3 (1.10-4.50); Lymphocytes Percent Auto 13.1 % (18.0-42.0); Mean Corpuscular Hemoglobin 28.2 pg (27.0-31.0); Mean Corpuscular Volume 91.1 fL (78.0-102.0); Mean Platelet Volume 10.6 fl (9.2-11.8); Monocytes Absolute Auto 0.91 K/mm3 (0.10-0.90); Monocytes Percent Auto 8.9 % (2.0-11.0); Neutrophils Absolute Auto 7.2 K/mm3 (1.7-7.2); Neutrophils Percent Auto 70.8 % (50.0-70.0); Platelet Count Result 337 K/mm3 (150-420); Red Blood Count 4.04 M/mm3 (4.20-5.40); Red Cell Distribution Width 17.2 % (11.6-14.4); White Blood Count 10.2 K/mm3 (4.8-10.8)
[2023-09-23 07:17] LABS: Anion Gap 11 mmol/L (8-16); Blood Urea Nitrogen 14 mg/dL (7-18); Calcium 8.6 mg/dL (8.5-10.1); Carbon Dioxide 24 mmol/L (21-32); Chloride 111 mmol/L (98-108); Estimated Glomerular Filt Rate 42; Glucose 104 mg/dL (70-99); Osmolality Calculated 302 mOsm/kg (285-295); Potassium 3.7 mmol/L (3.5-5.1); Sodium 146 mmol/L (136-145)
== END 2023-09-23 06:46 | disposition home or self-care (01) ==
LOC: CHSLAB 06:47
PROVIDERS: Visit Provider Internal Medicine
DX: D64.9 Anemia, unspecified (principal); I10 Essential (primary) hypertension; I48.91 Unspecified atrial fibrillation
CPT/HCPCS: 36415; 80048; 85025

== ENCOUNTER 2023-09-26 06:40 | Outpatient (NON) | payer MEDICARE, SELFPAY ==
[2023-09-26 07:06] LABS: Bilirubin Urine Negative (Negative); Blood Urine 3+ (Negative); Glucose Urine UA Negative (Negative); Ketones Urine Trace (Negative); Leukocyte Esterase Ur Trace LEU/UL (Negative); Nitrate Urine Positive (Negative); Protein Urine 3+ (Negative); Specific Grav Ur 1.025 (1.010-1.020); pH Urine 6.5 (5.0-8.0)
[2023-09-26 07:13] LABS: Add Urine Microscopic? YES; Appearance Urine Cloudy (Clear); Color Urine Dark Brown (Yellow); RBC Urine >100 /hpf (0-2); Squamous Epithelial Cell Urine Rare /hpf (Few)
[2023-09-26 07:14] LABS: Bacteria Urine 1+ /hpf
== END 2023-09-26 06:41 | disposition home or self-care (01) ==
LOC: CHSLAB 06:41
PROVIDERS: Visit Provider Internal Medicine
DX: R82.90 Unspecified abnormal findings in urine (principal); Z87.440 Personal history of urinary (tract) infections
CPT/HCPCS: 81001; 87077; 87086; 87088; 87186

== ENCOUNTER 2023-10-10 16:49 | Inpatient (IN) | payer MEDICARE, SELFPAY ==
[2023-10-10] VITALS (22 sets, daily range): BP systolic 78–124; BP diastolic 50–99; PULSE 76–104; RESP 14–32; TEMP 35.9–36.2; O2SAT 89–100; BMI 27.9
--- NOTE | ~2023-10-10 | US_ITS ---
EXAMINATION: US venous doppler [facility] DATE: 10/11/2023 09:25 INDICATION: Bilateral lower limb swelling TECHNIQUE: Benitez scale images without and with compression and Doppler images of the bilateral lower e xtremity veins were obtained. COMPARISON: 04/05/2006 FINDINGS: The right common femoral vein, profunda femoral vein, femoral vein, popliteal vein, peroneal trunk, p osterior tibial veins, and greater saphenous vein are patent. The right posterior tibial and peroneal veins are not well visualized but do appear patent. The left common femoral vein, profunda femoral vein, femoral vein, popliteal vein, peroneal trunk, po sterior tibial veins, and greater saphenous vein are patent. IMPRESSION: 1. Patent bilateral lower extremity veins. No evidence of deep venous thrombosis. Reviewed, dictated and finalized at location F. SAFETY DIRECTOR IMPRESSION: 1. Patent bilateral lower extremity veins. No evidence of deep venous thrombosi s.
--- NOTE | ~2023-10-10 | XR_ITS ---
EXAMINATION: XR chest 1V portable INDICATION: Hypotension TECHNIQUE: Portable AP chest at 0759 hours COMPARISON: 12/12/2022 FINDINGS: There is a moderate to large left pleural effusion. There are associated airspace opacities of the left lung. The cardiac silhouette is obscured. The right lung is clear. There is no pneumotho rax. A dual-lead cardiac pacemaker of the left chest wall ends with leads in expected locations. IMPRESSION: 1. Moderate to large sized left pleural effusion. 2. Airspace opacities of the left lung, consistent with passive atelectasis versus pneumonia. Reviewed, dictated and finalized at location F. RATUS LINEMAN IMPRESSION: 1. Moderate to large sized left pleural effusion. 2. Airspace opacities of the left lung, consistent with passive atelectasis josh manasa pneumonia.
--- NOTE | 2023-10-10 17:07 | ED.AMS ---
HPI - Altered Mental Status General Chief Complaint: Altered Mental Status Stated Complaint: ams Time Seen by Provider: 10/10/23 16:56 Source: patient and RN notes reviewed Mode of arrival: wheelchair Limitations: altered mental status History of Present Illness HPI narrative: patient wheel[facility] over [facility]. Today began having increased lethargy weakness and then they were having difficulty getting her to respond. On arrival patient is in the a wheelchair. She has moved to a bed and she becomes responsive answers to her name. Does not seem to want answer much as far as questions ago. She denies any pain anywhere. MD complaint: altered mental status Onset (ago): day(s) (today) Timing confirmed by: caregiver Severity: moderate Consistency of symptoms: waxing and waning Associated symptoms: malaise Related Data Home Medications Medication Instructions Recorded Confirmed bupropion HCl 100 mg tablet,12 hr 100 mg PO BID 04/28/21 10/10/23 sustained-release losartan 50 mg tablet 50 mg PO QAM 04/28/21 10/10/23 metoprolol tartrate 25 mg tablet 25 mg PO BID 04/28/21 10/10/23 multivitamin with minerals-folic 1 tablet PO DAILY 04/28/21 10/10/23 acid 0.4 mg tablet (Adult One Daily Multivitamin) primidone 50 mg tablet 50 mg PO HS 04/28/21 10/10/23 rosuvastatin 10 mg tablet 10 mg PO DAILY 04/28/21 10/10/23 bisacodyl 5 mg tablet,delayed 5 mg PO PRN PRN Constipation 09/30/21 10/10/23 release (Dulcolax (bisacodyl)) apixaban 5 mg tablet (Eliquis) 5 mg PO BID 03/21/22 10/10/23 aspirin 81 mg chewable tablet 81 mg PO DAILY 03/21/22 10/10/23 bisacodyl 10 mg rectal suppository 10 mg RECTAL DAILY PRN Constipation 03/21/22 10/10/23 docusate sodium 100 mg capsule 100 mg PO BID 03/21/22 10/10/23 (Colace) tramadol 50 mg tablet 50 mg PO Q4H PRN Pain 03/21/22 10/10/23 risperidone 0.5 mg tablet 0.5 mg PO BID 12/12/22 10/10/23 Allergies Allergy/AdvReac Type Severity Reaction Status Date / Time No Known Allergies Allergy Verified 10/10/23 17:28 Review of Systems Review of Systems: All systems reviewed & are unremarkable except as noted in HPI and below PMFSH Past Medical History Medical History Afib 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 COPD (chronic obstructive pulmonary disease) Dementia HLD (hyperlipidemia) HTN (hypertension) Social History Social History Smoking packs per day: 1 Smoking cigarettes per day: 20.0 Years smoked: 30 Smoking pack-years: 30.00 Smoking status: Former smoker Tobacco type: cigarettes Second hand tobacco smoke exposure: No Smoking end date: 05/20/16 Alcohol intake: never Drinks per week: 6 Substance use: never Substance use type: does not use Lack of Transportation: No Lack of Food: Never True Current Housing: I Have Housing Concerned About Future Housing: No Difficulty Paying Gas/Electric Bills: No Difficulty Paying for Meds: No Currently Unemployed: No Education: High School Diploma/GED Difficulty w/ Childcare or Family Care: No Living arrangements: [facility] Gender identity (if verbalized by the patient): Female Spiritual care concerns: No Exam Const: General: no acute distress, alert ( Responds to her name opens her eyes) and ill appearing acutely Nutritional Appearance: well nourished Limitations: altered mental status HENMT: Head: normal to inspection Ears: external ears normal Face/Nose/Sinus: Normal external nose present Face and sinus: normal facial exam Mouth: Yes moist mucous membranes Eyes: Conjunctivae: conjunctivae normal Pupils: Equal, round and reactive pupils present EOM: EOMs intact bilaterally Neck: Neck: normal visual inspection Resp: Effort & Inspection: normal respiratory effort Auscultation: clear to auscultation bilaterally Cardio: Rate: regular rate Rhythm: abnormal rhyt
[2023-10-10 17:58] LABS: Basophils Absolute Auto 0.07 K/mm3 (0.00-0.10); Basophils Percent Auto 0.6 % (0.0-1.0); Eosinophils Absolute Auto 0.45 K/mm3 (0.02-0.50); Eosinophils Percent Auto 3.7 % (1.0-6.0); Hematocrit 39.5 % (35.0-42.0); Hemoglobin 11.8 g/dL (11.7-13.8); Immature Granulocyte Absolute 0.13 K/mm3 (0.00-0.00); Immature Granulocyte Percent A 1.1 % (0.0-0.0); Lymphocytes Absolute Auto 1.59 K/mm3 (1.10-4.50); Lymphocytes Percent Auto 13.2 % (18.0-42.0); Mean Corpuscular HGB Conc 29.9 g/dL (32.0-36.0); Mean Corpuscular Hemoglobin 28.2 pg (27.0-31.0); Mean Corpuscular Volume 94.3 fL (78.0-102.0); Mean Platelet Volume 10.6 fl (9.2-11.8); Monocytes Absolute Auto 0.98 K/mm3 (0.10-0.90); Monocytes Percent Auto 8.1 % (2.0-11.0); Neutrophils Absolute Auto 8.9 K/mm3 (1.7-7.2); Neutrophils Percent Auto 73.3 % (50.0-70.0); Platelet Count Result 297 K/mm3 (150-420); Red Blood Count 4.19 M/mm3 (4.20-5.40); Red Cell Distribution Width 18.7 % (11.6-14.4); White Blood Count 12.1 K/mm3 (4.8-10.8)
[2023-10-10 17:59] LABS: Appearance Urine Cloudy (Clear); Bilirubin Urine 2+ (Negative); Blood Urine 3+ (Negative); Glucose Urine UA Negative (Negative); Ketones Urine Trace (Negative); Leukocyte Esterase Ur Trace LEU/UL (Negative); Nitrate Urine Negative (Negative); Protein Urine 2+ (Negative); Specific Grav Ur >= 1.030 (1.010-1.020); pH Urine 6.5 (5.0-8.0)
[2023-10-10 18:05] LABS: Add Urine Microscopic? YES; Color Urine Amber (Yellow); RBC Urine >75 /hpf (0-2); Squamous Epithelial Cell Urine Rare /hpf (Few)
[2023-10-10 18:06] LABS: Bacteria Urine 1+ /hpf
--- NOTE | 2023-10-10 18:06 | PC.NURSE ---
RN went in room to check on patient. Patient woke to noise of door opening and stated Who the hell are you? . Patient educated on where she is at at this time, repositioned in bed. Patient denies any needs at this time.
[2023-10-10 18:18] LABS: Lactic Acid Reflex 1.5 mmol/L (0.4-2.0)
[2023-10-10 18:23] LABS: Alanine Aminotransferase 28 U/L (14-59); Albumin Level 2.5 g/dL (3.4-5.0); Alkaline Phosphatase 65 U/L (46-116); Anion Gap 7 mmol/L (8-16); Aspartate Amino Transferase 59 U/L (15-37); Bilirubin,Total 0.7 mg/dL (0.00-1.00); Blood Urea Nitrogen 35 mg/dL (7-18); Calcium 8.9 mg/dL (8.5-10.1); Carbon Dioxide 31 mmol/L (21-32); Chloride 107 mmol/L (98-108); Estimated Glomerular Filt Rate 25; Glucose 105 mg/dL (70-99); Magnesium 2.1 mg/dL (1.8-2.4); Osmolality Calculated 308 mOsm/kg (285-295); Potassium 3.5 mmol/L (3.5-5.1); Sodium 145 mmol/L (136-145); Total Protein 6.8 g/dL (6.4-8.2)
[2023-10-10 18:24] LABS: CRP 24.5 mg/dL (0.0-0.9)
[2023-10-10 18:25] LABS: NT Pro B Type Natriuretic Pept 1406 pg/mL (0-450)
[2023-10-10] MEDS: SODIUM CHLORIDE 0.9% IV 1,000 ML 100 ML IV CONT (19:22)
--- NOTE | 2023-10-10 19:53 | PC.NURSE ---
Brayden admitted to room 205 per stretcher, is alert and oriented times 1, withdrawn and TRIBE. No c/o pain voiced.
[2023-10-10] MEDS: SODIUM CHLORIDE 0.9% IV 1,000 ML 999 ML IV CONT (20:02)
--- NOTE | 2023-10-10 22:45 | PC.NURSE ---
On 10/11/23, the PARK GUARD, Shalini Martinez, provided care and completed [facility] documentation on this patient. I have reviewed the PARK GUARD's documentation and agree with the findings.
[2023-10-11] VITALS (9 sets, daily range): BP systolic 74–140; BP diastolic 38–100; PULSE 64–109; RESP 16–24; TEMP 35.7–36; O2SAT 91–97
--- NOTE | 2023-10-11 00:34 | PC.NURSE ---
Pt's blood pressure is 74/38; Dr. Lester notified and no new orders recieved other than to continue to monitor patient.
[2023-10-11] MEDS: SODIUM CHLORIDE 0.9% IV 1,000 ML 100 ML IV CONT ×2 (03:35→13:40)
[2023-10-11 05:47] LABS: Anion Gap 10 mmol/L (8-16); Blood Urea Nitrogen 29 mg/dL (7-18); Calcium 8.2 mg/dL (8.5-10.1); Carbon Dioxide 21 mmol/L (21-32); Chloride 110 mmol/L (98-108); Estimated CRCL calculation 28 ml/min; Estimated Glomerular Filt Rate 36; Glucose 98 mg/dL (70-99); Osmolality Calculated 297 mOsm/kg (285-295); Potassium 3.5 mmol/L (3.5-5.1); Sodium 141 mmol/L (136-145)
[2023-10-11 06:27] LABS: Basophils Absolute Auto 0.08 K/mm3 (0.00-0.10); Basophils Percent Auto 0.7 % (0.0-1.0); Eosinophils Absolute Auto 0.35 K/mm3 (0.02-0.50); Eosinophils Percent Auto 3.1 % (1.0-6.0); Hematocrit 38.5 % (35.0-42.0); Hemoglobin 11.6 g/dL (11.7-13.8); Immature Granulocyte Absolute 0.16 K/mm3 (0.00-0.00); Immature Granulocyte Percent A 1.4 % (0.0-0.0); Lymphocytes Absolute Auto 0.91 K/mm3 (1.10-4.50); Mean Corpuscular HGB Conc 30.1 g/dL (32.0-36.0); Mean Corpuscular Hemoglobin 28.6 pg (27.0-31.0); Mean Corpuscular Volume 95.1 fL (78.0-102.0); Mean Platelet Volume 10.5 fl (9.2-11.8); Monocytes Absolute Auto 0.76 K/mm3 (0.10-0.90); Monocytes Percent Auto 6.6 % (2.0-11.0); Neutrophils Absolute Auto 9.2 K/mm3 (1.7-7.2); Neutrophils Percent Auto 80.2 % (50.0-70.0); Platelet Count Result 270 K/mm3 (150-420); Red Blood Count 4.05 M/mm3 (4.20-5.40); Red Cell Distribution Width 18.6 % (11.6-14.4); White Blood Count 11.4 K/mm3 (4.8-10.8)
--- NOTE | 2023-10-11 07:41 | PM.IMHP ---
H&P: HPI History of Present Illness Date/Time: 10/11/23 07:41 Chief Complaint: altered mental status Narrative: This is an 87-year-old female patient with past history of atrial fibrillation COPD, dementia, hyperlipidemia and hypertension who was admitted to the hospital due to altered mental status and urinary tract infection. Patient was brought from the care home to the emergency department by wheelchair with altered mental status. On arrival to the emergency department she awakened and was fighting with staff. Workup concerning for possible urinary tract infection, urine culture in progress. Blood pressure was low and treated with IV fluid bolus and continuous rate overnight. Patient remained hypotensive overnight. Laboratory assessment on admission showed acute kidney injury with improvement after IV fluids. This morning patient was drowsy awaken to voice denies any complaints. We noted a cough present. Chest x-ray ordered which showed atelectasis versus pneumonia. Patient was started on vancomycin cefepime and azithromycin. Viral panel obtained and patient found to be COVID positive. Ordered remdesivir and dexamethasone as oxygen saturation has been as low as 89% on room air. 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 COPD (chronic obstructive pulmonary disease) Dementia HLD (hyperlipidemia) HTN (hypertension) Social History Social History Smoking packs per day: 1 Smoking cigarettes per day: 20.0 Years smoked: 30 Smoking pack-years: 30.00 Smoking status: Unknown if ever smoked Tobacco type: cigarettes Second hand tobacco smoke exposure: No Smoking end date: 05/20/16 Alcohol intake: unknown Drinks per week: 6 Substance use: unknown Substance use type: does not use Lack of Transportation: No Lack of Food: Never True Current Housing: I Have Housing Concerned About Future Housing: No Difficulty Paying Gas/Electric Bills: No Difficulty Paying for Meds: No Currently Unemployed: No Education: High School Diploma/GED Difficulty w/ Childcare or Family Care: No Living arrangements: care home Gender identity (if verbalized by the patient): Female Spiritual care concerns: No Meds Home Medications and Allergies Home Medications Medication Instructions Recorded Confirmed Type bupropion HCl 100 mg tablet,12 hr 100 mg PO BID 04/28/21 10/10/23 History sustained-release losartan 50 mg tablet 50 mg PO QAM 04/28/21 10/10/23 History metoprolol tartrate 25 mg tablet 25 mg PO BID 04/28/21 10/10/23 History multivitamin with minerals-folic 1 tablet PO DAILY 04/28/21 10/10/23 History acid 0.4 mg tablet (Adult One Daily Multivitamin) primidone 50 mg tablet 50 mg PO HS 04/28/21 10/10/23 History rosuvastatin 10 mg tablet 10 mg PO DAILY 04/28/21 10/10/23 History bisacodyl 5 mg tablet,delayed 5 mg PO PRN PRN Constipation 09/30/21 10/10/23 History release (Dulcolax (bisacodyl)) apixaban 5 mg tablet (Eliquis) 5 mg PO BID 03/21/22 10/10/23 History aspirin 81 mg chewable tablet 81 mg PO DAILY 03/21/22 10/10/23 History bisacodyl 10 mg rectal suppository 10 mg RECTAL DAILY PRN Constipation 03/21/22 10/10/23 History docusate sodium 100 mg capsule 100 mg PO BID 03/21/22 10/10/23 History (Colace) tramadol 50 mg tablet 50 mg PO Q4H PRN Pain 03/21/22 10/10/23 History risperidone 0.5 mg tablet 0.5 mg PO BID 12/12/22 10/10/23 History Allergies Allergy/AdvReac Type Severity Reaction Status Date / Time No Known Allergies Allergy Verified 10/10/23 17:28 Vital Signs Vital Signs - 24 hr 10/10/23 16:49 10/10/23 17:03 10/10/23 17:15 Temperature 36.2 C L Pulse Rate 81 89 89 Respiratory Rate 27
[2023-10-11] MEDS: LACTATED RINGERS 1,000 ML 999 ML IV CONT (09:31)
[2023-10-11] MEDS: DOCUSATE SODIUM 100 MG CAPSULE PO ×2 (09:40→20:00)
[2023-10-11] MEDS: THERAPEUTIC MULTIVITAMINS/MINERALS TAB (*BKC) 1 TABLET PO (09:40)
[2023-10-11] MEDS: risperiDONE 0.25 MG TABLET 0.5 MG PO ×2 (09:40→20:00)
[2023-10-11 09:41] LABS: Influenza A QL RT-PCR Negative (Negative); Influenza B QL RT-PCR Negative (Negative); SARS-CoV-2 RNA PCR Positive (Negative)
[2023-10-11] MEDS: ROSUVASTATIN 10 MG TABLET PO (09:41)
[2023-10-11] MEDS: ASPIRIN 81 MG CHEWABLE TABLET PO (09:41)
[2023-10-11] MEDS: AZITHROMYCIN 250 MG TABLET 500 MG PO (09:41)
[2023-10-11] MEDS: APIXABAN 2.5 MG TABLET 5 MG BY MOUTH ×2 (09:41→20:00)
[2023-10-11] MEDS: CEFEPIME 1 GM/NS 50 ML 1 GM/50 ML BAG IVPB ×2 (09:42→20:00)
[2023-10-11 09:49] LABS: RSV RNA, RT-PCR Negative (Negative)
[2023-10-11 10:20] LABS: INR 1.1; Prothrombin Time 12.1 Seconds (9.50-12.10)
[2023-10-11] MEDS: ALBUTEROL SULFATE (*SP) INHALER 2 PUFF INHALATION ×2 (10:58→13:30)
[2023-10-11] MEDS: buPROPion HCL SR (12HR) 100 MG TABCR PO ×2 (11:04→20:00)
[2023-10-11] MEDS: REMDESIVIR 200 MG/NS 250 ML 200 MG/250 ML BAG 250 MG IVPB (11:04)
[2023-10-11 19:02] LABS: Procalcitonin 0.8 ng/mL
[2023-10-11 19:20] LABS: MRSA (PCR) NOT DETECTED (NOT DETECTE)
[2023-10-12] VITALS: BP 137/97; PULSE 82; PULSE 89; RESP 16; TEMP 36; O2SAT 93
[2023-10-12] MEDS: SODIUM CHLORIDE 0.9% IV 1,000 ML 100 ML IV CONT (00:41)
[2023-10-12 04:00] VITALS: BP 137/90; PULSE 85; RESP 16; TEMP 36.1; O2SAT 94
[2023-10-12 05:16] LABS: Hematocrit 40.4 % (35.0-42.0); Hemoglobin 11.8 g/dL (11.7-13.8); Mean Corpuscular HGB Conc 29.2 g/dL (32.0-36.0); Mean Corpuscular Hemoglobin 28.6 pg (27.0-31.0); Mean Corpuscular Volume 98.1 fL (78.0-102.0); Mean Platelet Volume 10.8 fl (9.2-11.8); Platelet Count Result 274 K/mm3 (150-420); Red Blood Count 4.12 M/mm3 (4.20-5.40); Red Cell Distribution Width 18.6 % (11.6-14.4); White Blood Count 10.4 K/mm3 (4.8-10.8)
[2023-10-12 05:31] LABS: Alanine Aminotransferase 26 U/L (14-59); Albumin Level 2.4 g/dL (3.4-5.0); Alkaline Phosphatase 55 U/L (46-116); Anion Gap 10 mmol/L (8-16); Aspartate Amino Transferase 40 U/L (15-37); Bilirubin,Total 0.5 mg/dL (0.00-1.00); Blood Urea Nitrogen 23 mg/dL (7-18); Calcium 8.2 mg/dL (8.5-10.1); Carbon Dioxide 27 mmol/L (21-32); Chloride 110 mmol/L (98-108); Estimated CRCL calculation 30 ml/min; Estimated Glomerular Filt Rate 39; Glucose 110 mg/dL (70-99); Magnesium 1.9 mg/dL (1.8-2.4); Osmolality Calculated 308 mOsm/kg (285-295); Potassium 3.6 mmol/L (3.5-5.1); Sodium 147 mmol/L (136-145); Total Protein 6.3 g/dL (6.4-8.2)
[2023-10-12 05:36] LABS: Band Neutrophils Percent 0 % (0-6); Basophils Percent Manual 0 % (0-1); Eosinophils Percent Manual 0 % (1-6); Lymphocytes Absolute Manual 0.93 K/mm3 (1.1-4.5); Lymphocytes Percent Manual 9 % (18-44); Metamyelocytes Percent 1 %; Monocytes Absolute Manual 0.83 K/mm3 (0.1-0.90); Monocytes Percent Manual 8 % (3-9); Neutrophils Absolute Manual 8.52 K/mm3 (1.7-7.2); Neutrophils Percent Manual 82 % (46-73); Platelet Estimate Adequate (Adequate); Total Cells Counted 100
[2023-10-12 08:00] VITALS: BP 132/87; PULSE 78; RESP 17; TEMP 35.9; O2SAT 95
--- NOTE | 2023-10-12 09:26 | PM.IMPN ---
Progress Note: A&P Assessment and Plan (1) Sepsis: Code(s): A41.9 - Sepsis, unspecified organism Status: Acute Assessment and Plan: Qsofa 3 with altered mental status (GCS 13), RR 24 and hypotension overnight. Pneumonia and ?UTI. Ordered procalcitonin. 10/11: white blood cell count normalized, vital signs improved, level of consciousness improved. DC vancomycin as MRSA nares is negative. (2) Pneumonia due to COVID-19 virus: Code(s): U07.1 - COVID-19; J12.82 - Pneumonia due to coronavirus disease 2019 Status: Acute Assessment and Plan: Patient found to be COVID positive and findings atelectasis versus pneumonia on chest x-ray. Remdesivir and dexamethasone started. Additionally, IV antibiotics started for pneumonia due to severity patient illness and possibility concomitant bacterial infection. Ordered pneumococcal antigen, Legionella antigen, MRSA screen, sputum culture, blood cultures collected in the emergency department, inhalers instead of nebulizer treatments, incentive spirometry, and supplemental oxygen as needed. 10/11: vital signs improved, continue current treatments except DC vancomycin (3) Transient hypotension: Code(s): I95.9 - Hypotension, unspecified Status: Acute Assessment and Plan: Low blood pressure noted overnight. Additional IV fluids ordered this morning. IV antibiotics and remdesivir started this morning. Galdamez catheter inserted to monitor urine output. 10/11: IV fluids discontinued due to hypernatremia, encourage PO intake (4) Altered mental status: Qualifiers: Altered mental status type: transient alteration of awareness Qualified Code(s): R40.4 - Transient alteration of awareness Code(s): R41.82 - Altered mental status, unspecified Status: Acute Assessment and Plan: Original present complaint from the shelter. History of dementia. Patient hypotensive which likely contributed to altered mental status. 10/11: awake, alert, baseline confusion noted. Mental status appears to be at baseline. (5) MARY (acute kidney injury): Code(s): N17.9 - Acute kidney failure, unspecified Status: Acute Assessment and Plan: Serum creatinine 1.89 BUN 35 estimated GFR 25 on admission, improved to creatinine 1.38 BUN 29 estimated GFR 36 on morning labs. Continue to trend. Galdamez catheter in place to monitor urine output. IV fluids continue. 10/11: Cr 1.3, BUN 23, eGFR 39 (6) UTI (urinary tract infection): Qualifiers: Hematuria presence: with hematuria Urinary tract infection type: acute cystitis Qualified Code(s): N30.01 - Acute cystitis with hematuria Code(s): N39.0 - Urinary tract infection, site not specified Status: Acute Assessment and Plan: Questionable findings urinary tract infection on UA, urine culture in process. IV antibiotics given in the emergency department Rocephin x1 and changed to cefepime and vancomycin this morning. 10/11: 10,000-49,000 CFU of pseudomonas aeruginosa in urine (7) HTN (hypertension): Code(s): I10 - Essential (primary) hypertension Status: Chronic Assessment and Plan: Patient is hypotensive. Hold antihypertensives. 10/11: Blood pressure stable 130s/80-90s. Resume metoprolol today and losartan tomorrow if remains stable. (8) Afib: Code(s): I48.91 - Unspecified atrial fibrillation Status: Acute Assessment and Plan: Controlled ventricular response. Patient was on Eliquis which will be continued. She is on metoprolol likely for rate control but this is on hold due to hypotension. 10/11: mildly tachycardic, resume metoprolol Plan Q8H VS, D/C Tele Resume metoprolol today, losartan tomorrow COVID isolation Remdesivir and dexamethasone for COVID pneumonia with hypoxia IV antibiotics for UTI/possible concomitant bacterial pneumonia Galdamez catheter for accurate I&O due to severity of illness and MARY Diet: Regular (if
[2023-10-12] MEDS: risperiDONE 0.25 MG TABLET 0.5 MG PO ×2 (09:46→20:49)
[2023-10-12] MEDS: AZITHROMYCIN 250 MG TABLET 500 MG PO (09:46)
[2023-10-12] MEDS: APIXABAN 2.5 MG TABLET 5 MG BY MOUTH ×2 (09:47→20:49)
[2023-10-12] MEDS: ASPIRIN 81 MG CHEWABLE TABLET PO (09:47)
[2023-10-12] MEDS: THERAPEUTIC MULTIVITAMINS/MINERALS TAB (*BKC) 1 TABLET PO (09:47)
[2023-10-12] MEDS: buPROPion HCL SR (12HR) 100 MG TABCR PO ×2 (09:47→20:49)
[2023-10-12] MEDS: DOCUSATE SODIUM 100 MG CAPSULE PO ×2 (09:47→20:49)
[2023-10-12] MEDS: ROSUVASTATIN 10 MG TABLET PO (09:48)
[2023-10-12] MEDS: CEFEPIME 1 GM/NS 50 ML 1 GM/50 ML BAG IVPB ×2 (10:01→20:53)
[2023-10-12] MEDS: ALBUTEROL SULFATE (*SP) INHALER 2 PUFF INHALATION ×2 (10:32→17:45)
[2023-10-12] MEDS: REMDESIVIR 100 MG/NS 250 ML 100 MG/250 ML BAG 250 MG IVPB (10:51)
[2023-10-12 10:52] VITALS: PULSE 87
[2023-10-12] MEDS: METOPROLOL TARTRATE 25 MG TABLET PO ×2 (10:52→20:50)
[2023-10-12 16:00] VITALS: BP 111/85; PULSE 78; RESP 18; TEMP 36.3; O2SAT 91
--- NOTE | 2023-10-12 17:00 | PC.NURSE ---
Pt pulled out draper catheter and had a large area of incontinent urine on bed sheets. Urinary catheter replaced and began to drain dark red urine as before.
[2023-10-12 17:03] LABS: Anion Gap 10 mmol/L (8-16); Blood Urea Nitrogen 23 mg/dL (7-18); Calcium 8.3 mg/dL (8.5-10.1); Carbon Dioxide 28 mmol/L (21-32); Chloride 109 mmol/L (98-108); Estimated CRCL calculation 25 ml/min; Estimated Glomerular Filt Rate 31; Glucose 145 mg/dL (70-99); Osmolality Calculated 310 mOsm/kg (285-295); Potassium 3.5 mmol/L (3.5-5.1); Sodium 147 mmol/L (136-145)
[2023-10-12] MEDS: PRIMIDONE 50 MG TABLET PO (20:49)
[2023-10-12 20:50] VITALS: PULSE 85
[2023-10-13] VITALS: BP 96/54; PULSE 83; RESP 16; TEMP 35.7; O2SAT 96
[2023-10-13 05:54] LABS: Hematocrit 39.3 % (35.0-42.0); Hemoglobin 11.9 g/dL (11.7-13.8); Mean Corpuscular HGB Conc 30.3 g/dL (32.0-36.0); Mean Corpuscular Hemoglobin 27.9 pg (27.0-31.0); Mean Corpuscular Volume 92.3 fL (78.0-102.0); Mean Platelet Volume 10.5 fl (9.2-11.8); Platelet Count Result 320 K/mm3 (150-420); Red Blood Count 4.26 M/mm3 (4.20-5.40); Red Cell Distribution Width 18.6 % (11.6-14.4); White Blood Count 10.4 K/mm3 (4.8-10.8)
[2023-10-13 06:07] LABS: INR 1.4; Prothrombin Time 15.1 Seconds (9.50-12.10)
[2023-10-13 06:11] LABS: Alanine Aminotransferase 34 U/L (14-59); Albumin Level 2.5 g/dL (3.4-5.0); Alkaline Phosphatase 54 U/L (46-116); Anion Gap 10 mmol/L (8-16); Aspartate Amino Transferase 29 U/L (15-37); Bilirubin,Total 0.5 mg/dL (0.00-1.00); Blood Urea Nitrogen 25 mg/dL (7-18); Calcium 8.6 mg/dL (8.5-10.1); Carbon Dioxide 27 mmol/L (21-32); Chloride 110 mmol/L (98-108); Estimated CRCL calculation 30 ml/min; Estimated Glomerular Filt Rate 39; Glucose 113 mg/dL (70-99); Osmolality Calculated 309 mOsm/kg (285-295); Potassium 3.5 mmol/L (3.5-5.1); Sodium 147 mmol/L (136-145); Total Protein 6.6 g/dL (6.4-8.2)
[2023-10-13 06:24] LABS: Band Neutrophils Percent 1 % (0-6); Basophils Percent Manual 1 % (0-1); Eosinophils Absolute Manual 0.31 K/mm3 (0.02-0.5); Eosinophils Percent Manual 3 % (1-6); Lymphocytes Absolute Manual 1.76 K/mm3 (1.1-4.5); Lymphocytes Percent Manual 17 % (18-44); Monocytes Absolute Manual 1.35 K/mm3 (0.1-0.90); Monocytes Percent Manual 13 % (3-9); Neutrophils Absolute Manual 6.86 K/mm3 (1.7-7.2); Neutrophils Percent Manual 65 % (46-73); Total Cells Counted 100
[2023-10-13 06:25] LABS: Platelet Estimate Adequate (Adequate)
[2023-10-13 08:00] VITALS: BP 121/92; PULSE 92; RESP 18; TEMP 35.9; O2SAT 92
[2023-10-13] MEDS: REMDESIVIR 100 MG/NS 250 ML 100 MG/250 ML BAG 250 MG IVPB (09:03)
[2023-10-13 10:28] VITALS: PULSE 98
[2023-10-13] MEDS: THERAPEUTIC MULTIVITAMINS/MINERALS TAB (*BKC) 1 TABLET PO (10:28)
[2023-10-13] MEDS: METOPROLOL TARTRATE 25 MG TABLET PO ×2 (10:28→20:40)
[2023-10-13] MEDS: AZITHROMYCIN 250 MG TABLET 500 MG PO (10:28)
[2023-10-13] MEDS: APIXABAN 2.5 MG TABLET 5 MG BY MOUTH ×2 (10:28→20:40)
[2023-10-13] MEDS: ASPIRIN 81 MG CHEWABLE TABLET PO (10:29)
[2023-10-13] MEDS: DOCUSATE SODIUM 100 MG CAPSULE PO ×2 (10:29→20:40)
[2023-10-13] MEDS: buPROPion HCL SR (12HR) 100 MG TABCR PO ×2 (10:29→20:40)
[2023-10-13] MEDS: ROSUVASTATIN 10 MG TABLET PO (10:29)
[2023-10-13] MEDS: ALBUTEROL SULFATE (*SP) INHALER 2 PUFF INHALATION ×4 (10:29→20:41)
[2023-10-13] MEDS: CEFEPIME 1 GM/NS 50 ML 1 GM/50 ML BAG IVPB ×2 (10:30→20:41)
[2023-10-13] MEDS: risperiDONE 0.25 MG TABLET 0.5 MG PO ×2 (10:33→20:45)
[2023-10-13 16:00] VITALS: BP 96/41; PULSE 98; RESP 18; TEMP 35.8; O2SAT 94
--- NOTE | 2023-10-13 16:56 | PM.IMPN ---
Progress Note: A&P Assessment and Plan (1) Sepsis: Code(s): A41.9 - Sepsis, unspecified organism Status: Acute Assessment and Plan: Qsofa 3 with altered mental status (GCS 13), RR 24 and hypotension overnight. Pneumonia and ?UTI. Ordered procalcitonin. 10/12: white blood cell count normalized, vital signs improved, level of consciousness improved. DC vancomycin as MRSA nares is negative. 10/13: White blood cell count stable, borderline blood pressure and borderline tachycardia but overall appears much improved. (2) Pneumonia due to COVID-19 virus: Code(s): U07.1 - COVID-19; J12.82 - Pneumonia due to coronavirus disease 2019 Status: Acute Assessment and Plan: Patient found to be COVID positive and findings atelectasis versus pneumonia on chest x-ray. Remdesivir and dexamethasone started. Additionally, IV antibiotics started for pneumonia due to severity patient illness and possibility concomitant bacterial infection. Ordered pneumococcal antigen, Legionella antigen, MRSA screen, sputum culture, blood cultures collected in the emergency department, inhalers instead of nebulizer treatments, incentive spirometry, and supplemental oxygen as needed. 10/12: vital signs improved, continue current treatments except DC vancomycin (3) Transient hypotension: Code(s): I95.9 - Hypotension, unspecified Status: Acute Assessment and Plan: Low blood pressure noted overnight. Additional IV fluids ordered this morning. IV antibiotics and remdesivir started this morning. Galdamez catheter inserted to monitor urine output. 10/12: IV fluids discontinued due to hypernatremia, encourage PO intake 10/13: IV fluids ordered due to borderline low blood pressure (4) Altered mental status: Qualifiers: Altered mental status type: transient alteration of awareness Qualified Code(s): R40.4 - Transient alteration of awareness Code(s): R41.82 - Altered mental status, unspecified Status: Acute Assessment and Plan: [facility] History of dementia. Patient hypotensive which likely contributed to altered mental status. 10/12: awake, alert, baseline confusion noted. Mental status appears to be at baseline. 10/13: unchanged from 10/12 (5) MARY (acute kidney injury): Code(s): N17.9 - Acute kidney failure, unspecified Status: Acute Assessment and Plan: Serum creatinine 1.89 BUN 35 estimated GFR 25 on admission, improved to creatinine 1.38 BUN 29 estimated GFR 36 on morning labs. Continue to trend. Galdamez catheter in place to monitor urine output. IV fluids continue. 10/12: Cr 1.3, BUN 23, eGFR 39 10/13: Cr 1.29, BUN 25, eGFR 39 (6) UTI (urinary tract infection): Qualifiers: Hematuria presence: with hematuria Urinary tract infection type: acute cystitis Qualified Code(s): N30.01 - Acute cystitis with hematuria Code(s): N39.0 - Urinary tract infection, site not specified Status: Acute Assessment and Plan: Questionable findings urinary tract infection on UA, urine culture in process. IV antibiotics given in the emergency department Rocephin x1 and changed to cefepime and vancomycin this morning. 10/12: 10,000-49,000 CFU of pseudomonas aeruginosa in urine (7) HTN (hypertension): Code(s): I10 - Essential (primary) hypertension Status: Chronic Assessment and Plan: Patient is hypotensive. Hold antihypertensives. 10/12: Blood pressure stable 130s/80-90s. Resume metoprolol today and losartan tomorrow if remains stable. 10/13: Blood pressure 90s/40s. Hold losartan. Give IV fluids (8) Afib: Code(s): I48.91 - Unspecified atrial fibrillation Status: Acute Assessment and Plan: Controlled ventricular response. Patient was on Eliquis which will be continued. She is on metoprolol likely for rate control but this is on hold due to hypotension. 10/12: mildly tachycardic, res
[2023-10-13] MEDS: DEXTROSE 5%/0.45% SOD CHL 1,000 ML 75 ML IV CONT (17:00)
[2023-10-13 20:40] VITALS: PULSE 86
[2023-10-13] MEDS: PRIMIDONE 50 MG TABLET PO (20:40)
[2023-10-13 21:38] LABS: Pneumococcal Antigen Urine Not Detected (Not Detected)
[2023-10-13 23:54] VITALS: BP 98/61; PULSE 78; RESP 20; TEMP 36.1; O2SAT 92
[2023-10-14 05:21] LABS: Hematocrit 38.1 % (35.0-42.0); Hemoglobin 11.6 g/dL (11.7-13.8); Mean Corpuscular HGB Conc 30.4 g/dL (32.0-36.0); Mean Corpuscular Hemoglobin 28.3 pg (27.0-31.0); Mean Corpuscular Volume 92.9 fL (78.0-102.0); Mean Platelet Volume 10.2 fl (9.2-11.8); Platelet Count Result 314 K/mm3 (150-420); Red Cell Distribution Width 18.6 % (11.6-14.4); White Blood Count 11.4 K/mm3 (4.8-10.8)
[2023-10-14 05:41] LABS: Total Cells Counted 100
[2023-10-14 05:42] LABS: Band Neutrophils Percent 1 % (0-6); Basophils Absolute Manual 0.11 K/mm3 (0-0.1); Basophils Percent Manual 1 % (0-1); Eosinophils Absolute Manual 0.22 K/mm3 (0.02-0.5); Eosinophils Percent Manual 2 % (1-6); Lymphocytes Absolute Manual 2.28 K/mm3 (1.1-4.5); Lymphocytes Percent Manual 20 % (18-44); Metamyelocytes Percent 3 %; Monocytes Absolute Manual 0.79 K/mm3 (0.1-0.90); Monocytes Percent Manual 7 % (3-9); Myelocytes Percent 2 %; Neutrophils Absolute Manual 7.41 K/mm3 (1.7-7.2); Neutrophils Percent Manual 64 % (46-73); Platelet Estimate Adequate (Adequate)
[2023-10-14 05:43] LABS: Alanine Aminotransferase 30 U/L (14-59); Albumin Level 2.5 g/dL (3.4-5.0); Alkaline Phosphatase 54 U/L (46-116); Aspartate Amino Transferase 28 U/L (15-37); Bilirubin,Total 0.4 mg/dL (0.00-1.00); Blood Urea Nitrogen 27 mg/dL (7-18); Calcium 8.4 mg/dL (8.5-10.1); Chloride 110 mmol/L (98-108); Estimated CRCL calculation 30 ml/min; Estimated Glomerular Filt Rate 38; Glucose 130 mg/dL (70-99); Magnesium 1.8 mg/dL (1.8-2.4); Osmolality Calculated 307 mOsm/kg (285-295); Potassium 3.3 mmol/L (3.5-5.1); Sodium 145 mmol/L (136-145); Total Protein 6.4 g/dL (6.4-8.2)
[2023-10-14 05:48] LABS: Anion Gap 9 mmol/L (8-16); Carbon Dioxide 26 mmol/L (21-32)
[2023-10-14 08:00] VITALS: BP 104/78; PULSE 84; RESP 20; TEMP 36.6; O2SAT 97
[2023-10-14] MEDS: DOCUSATE SODIUM 100 MG CAPSULE PO ×2 (08:52→20:23)
[2023-10-14] MEDS: POTASSIUM CHLORIDE 20 MEQ ER TABLET 40 MEQ PO (08:52)
[2023-10-14 08:53] VITALS: PULSE 86
[2023-10-14] MEDS: APIXABAN 2.5 MG TABLET 5 MG BY MOUTH ×2 (08:53→20:22)
[2023-10-14] MEDS: AZITHROMYCIN 250 MG TABLET 500 MG PO (08:53)
[2023-10-14] MEDS: METOPROLOL TARTRATE 25 MG TABLET PO ×2 (08:53→20:22)
[2023-10-14] MEDS: risperiDONE 0.25 MG TABLET 0.5 MG PO ×2 (08:53→20:22)
[2023-10-14] MEDS: buPROPion HCL SR (12HR) 100 MG TABCR PO ×2 (08:53→20:22)
[2023-10-14] MEDS: THERAPEUTIC MULTIVITAMINS/MINERALS TAB (*BKC) 1 TABLET PO (08:53)
[2023-10-14] MEDS: ASPIRIN 81 MG CHEWABLE TABLET PO (08:53)
[2023-10-14] MEDS: ROSUVASTATIN 10 MG TABLET PO (08:54)
[2023-10-14] MEDS: ALBUTEROL SULFATE (*SP) INHALER 2 PUFF INHALATION ×2 (08:54→20:23)
[2023-10-14] MEDS: REMDESIVIR 100 MG/NS 250 ML 100 MG/250 ML BAG 250 MG IVPB (08:57)
[2023-10-14] MEDS: CEFEPIME 1 GM/NS 50 ML 1 GM/50 ML BAG IVPB ×2 (10:19→20:42)
[2023-10-14] MEDS: DEXTROSE 5%/0.45% SOD CHL 1,000 ML 75 ML IV CONT (10:20)
[2023-10-14 11:25] VITALS: BMI 11.0
[2023-10-14] MEDS: FUROSEMIDE INJ 20 MG/2 ML VIAL IV PUSH ×2 (11:39→20:22)
--- NOTE | 2023-10-14 12:18 | PM.IMPN ---
Progress Note: A&P Assessment and Plan (1) Sepsis: Code(s): A41.9 - Sepsis, unspecified organism Status: Acute Assessment and Plan: Qsofa 3 with altered mental status (GCS 13), RR 24 and hypotension overnight. Pneumonia and ?UTI. Ordered procalcitonin. 10/12: white blood cell count normalized, vital signs improved, level of consciousness improved. DC vancomycin as MRSA nares is negative. 10/13: White blood cell count stable, borderline blood pressure and borderline tachycardia but overall appears much improved. 10/14: Stable vital signs, minimal white blood cell count increase likely from steroids (2) Pneumonia due to COVID-19 virus: Code(s): U07.1 - COVID-19; J12.82 - Pneumonia due to coronavirus disease 2019 Status: Acute Assessment and Plan: Patient found to be COVID positive and findings atelectasis versus pneumonia on chest x-ray. Remdesivir and dexamethasone started. Additionally, IV antibiotics started for pneumonia due to severity patient illness and possibility concomitant bacterial infection. Ordered pneumococcal antigen, Legionella antigen, MRSA screen, sputum culture, blood cultures collected in the emergency department, inhalers instead of nebulizer treatments, incentive spirometry, and supplemental oxygen as needed. 10/12: vital signs improved, continue current treatments except DC vancomycin 10/14: Stable, continue current treatment (3) Transient hypotension: Code(s): I95.9 - Hypotension, unspecified Status: Acute Assessment and Plan: Low blood pressure noted overnight. Additional IV fluids ordered this morning. IV antibiotics and remdesivir started this morning. Galdamez catheter inserted to monitor urine output. 10/12: IV fluids discontinued due to hypernatremia, encourage PO intake 10/13: IV fluids ordered due to borderline low blood pressure 10/14: IV fluids discontinued due to pulmonary edema blood pressure stable thus far. She is on metoprolol for rate control but losartan is still being held. (4) Altered mental status: Qualifiers: Altered mental status type: transient alteration of awareness Qualified Code(s): R40.4 - Transient alteration of awareness Code(s): R41.82 - Altered mental status, unspecified Status: Resolved Assessment and Plan: [facility] the [facility]. History of dementia. Patient hypotensive which likely contributed to altered mental status. 10/12: awake, alert, baseline confusion noted. Mental status appears to be at baseline. 10/13: unchanged from 10/12 10/14: Resolved (5) MARY (acute kidney injury): Code(s): N17.9 - Acute kidney failure, unspecified Status: Acute Assessment and Plan: Serum creatinine 1.89 BUN 35 estimated GFR 25 on admission, improved to creatinine 1.38 BUN 29 estimated GFR 36 on morning labs. Continue to trend. Galdamez catheter in place to monitor urine output. IV fluids continue. 10/12: Cr 1.3, BUN 23, eGFR 39 10/13: Cr 1.29, BUN 25, eGFR 39 10/14: Cr 1.31, BUN 27, eGFR 38, stable at what appears to be baseline (6) UTI (urinary tract infection): Qualifiers: Hematuria presence: with hematuria Urinary tract infection type: acute cystitis Qualified Code(s): N30.01 - Acute cystitis with hematuria Code(s): N39.0 - Urinary tract infection, site not specified Status: Acute Assessment and Plan: Questionable findings urinary tract infection on UA, urine culture in process. IV antibiotics given in the emergency department Rocephin x1 and changed to cefepime and vancomycin this morning. 10/12: 10,000-49,000 CFU of pseudomonas aeruginosa in urine 10/14: Patient remains on cefepime which should cover. If discharged before full course of cefepime will use Levaquin. (7) HTN (hypertension): Code(s): I10 - Essential (primary) hypertension Status: Chronic Assessment and Plan: Patient is hypotensive. Hold antih
[2023-10-14 15:46] VITALS: BP 102/68; PULSE 88; RESP 20; TEMP 36.6; O2SAT 97
[2023-10-14 20:22] VITALS: PULSE 88
[2023-10-14] MEDS: PRIMIDONE 50 MG TABLET PO (20:22)
[2023-10-15] VITALS: BP 99/65; PULSE 76; RESP 18; TEMP 36.1; O2SAT 94
[2023-10-15 06:02] LABS: Legionella pneumophila Ag Ur Not Detected (Not Detected)
--- NOTE | 2023-10-15 06:47 | PC.NURSE ---
Patient slept soundly all night. She had a total of 2250 out in her draper. Patient was given lasix at 0900. Vitals were WNL.
[2023-10-15 08:00] VITALS: BP 110/62; PULSE 71; RESP 18; TEMP 36.1; O2SAT 96
[2023-10-15 08:53] VITALS: PULSE 71
[2023-10-15] MEDS: METOPROLOL TARTRATE 25 MG TABLET PO (08:53)
[2023-10-15] MEDS: ASPIRIN 81 MG CHEWABLE TABLET PO (08:53)
[2023-10-15] MEDS: ROSUVASTATIN 10 MG TABLET PO (08:53)
[2023-10-15] MEDS: risperiDONE 0.25 MG TABLET 0.5 MG PO (08:53)
[2023-10-15] MEDS: AZITHROMYCIN 250 MG TABLET 500 MG PO (08:53)
[2023-10-15] MEDS: buPROPion HCL SR (12HR) 100 MG TABCR PO (08:53)
[2023-10-15] MEDS: APIXABAN 2.5 MG TABLET 5 MG BY MOUTH (08:54)
[2023-10-15] MEDS: THERAPEUTIC MULTIVITAMINS/MINERALS TAB (*BKC) 1 TABLET PO (08:54)
[2023-10-15] MEDS: DOCUSATE SODIUM 100 MG CAPSULE PO (08:54)
[2023-10-15] MEDS: FUROSEMIDE INJ 20 MG/2 ML VIAL IV PUSH (09:02)
[2023-10-15] MEDS: REMDESIVIR 100 MG/NS 250 ML 100 MG/250 ML BAG 250 MG IVPB (09:16)
[2023-10-15] MEDS: CEFEPIME 1 GM/NS 50 ML 1 GM/50 ML BAG IVPB (10:51)
[2023-10-15] MEDS: levoFLOXacin TAB 500 MG, levoFLOXacin TAB 250 MG 750 MG PO (10:51)
--- NOTE | 2023-10-15 11:10 | PM.DS ---
DS: Admitting Diagnosis Discharge Date 10/15/2023 Admitting Diagnosis SEPSIS, PNEUMONIA DUE TO COVID-19 VIRUS, TRANSIENT HYPOTENSION, ALTERED MENTAL STATUS, MARY, UTI, HYPERTENSION, AFIB DS: Discharge Diagnosis Discharge Diagnosis (1) Sepsis: Code(s): A41.9 - Sepsis, unspecified organism Status: Acute (2) Pneumonia due to COVID-19 virus: Code(s): U07.1 - COVID-19; J12.82 - Pneumonia due to coronavirus disease 2019 Status: Acute (3) Transient hypotension: Code(s): I95.9 - Hypotension, unspecified Status: Acute (4) Altered mental status: Qualifiers: Altered mental status type: transient alteration of awareness Qualified Code(s): R40.4 - Transient alteration of awareness Code(s): R41.82 - Altered mental status, unspecified Status: Resolved (5) MARY (acute kidney injury): Code(s): N17.9 - Acute kidney failure, unspecified Status: Acute (6) UTI (urinary tract infection): Qualifiers: Hematuria presence: with hematuria Urinary tract infection type: acute cystitis Qualified Code(s): N30.01 - Acute cystitis with hematuria Code(s): N39.0 - Urinary tract infection, site not specified Status: Acute (7) HTN (hypertension): Code(s): I10 - Essential (primary) hypertension Status: Chronic (8) Afib: Code(s): I48.91 - Unspecified atrial fibrillation Status: Acute DS: Summary Hospital Course Reason for hospitalization: Altered mental status with findings of urinary tract infection and COVID Hospital Course: 10/11:? This is an 87-year-old female patient with past history of atrial fibrillation COPD, dementia, hyperlipidemia and hypertension who was admitted to the hospital due to altered mental status and urinary tract infection.? Patient was brought from the longterm to the emergency department by wheelchair with altered mental status.? On arrival to the emergency department she awakened and was fighting with staff.? Workup concerning for possible urinary tract infection, urine culture in progress.? Blood pressure was low and treated with IV fluid bolus and continuous rate overnight.? Patient remained hypotensive overnight.? Laboratory assessment on admission showed acute kidney injury with improvement after IV fluids.? This morning patient was drowsy awaken to voice denies any complaints.? We noted a cough present.? Chest x-ray ordered which showed atelectasis versus pneumonia.? Patient was started on vancomycin cefepime and azithromycin.? Viral panel obtained and patient found to be COVID positive.? Ordered remdesivir and dexamethasone as oxygen saturation has been as low as 89% on room air. 10/12:? Patient more awake today.? She was able to eat breakfast and drink fluids.? Sodium was noted to be elevated with a.m. labs.? IV fluids discontinued.? Encourage p.o. intake.? Will recheck this afternoon. patient denies any complaints.? She is pleasantly confused which appears to be her baseline mental status.? Continue current treatment except DC vancomycin as MRSA nares was negative.? Consider discharge in a couple days. 10/13: Patient awake alert and confused per baseline today.? She denies any acute distress or new or worsening symptoms.? She notes that she still occasionally coughs.? Blood pressure has been running on the lower side 90s/40s heart rate around 100.? Patient remains on room air.? Sodium remains elevated at 147 but consistent.? Noted lower urine output.? For these reasons we will order D5 1/2 normal saline at 75 mL/hr.? Patient is feeding herself meals but does not seem to be drinking enough fluids. 10/14:? Blood pressure stable.? Heart rate stable.? Sodium level 145.? IV fluids patient complained of increased tachypnea and mild dyspnea.? Auscultation reveals decreased lung sounds left lower lobe with scattered crackles.? IV fluids discontinued and gentle IV diuresis ordered.? Patient will remain admitted due to pulmona
--- NOTE | 2023-10-15 13:51 | PC.NURSE ---
Patient discharged back to [facility] per w/c and facility staff, draper and IV removed before discharge, report called to [facility].
--- NOTE | 2023-10-16 08:27 | PC.NURSE ---
discharge call back completed, no concerns regarding dc instructions raised by group home
--- NOTE | 2023-10-17 08:48 | PC.NURSE ---
Blood cultures are negative.
== END 2023-10-15 13:55 | DRG 871 ==
LOC: CHSED 18:30 → CHS2ND 18:47
PROVIDERS: Nurse Practitioner; Admitting Provider Internal Medicine; Emergency Provider Emergency Medicine; PCP Internal Medicine; Visit Provider Internal Medicine
DX: A41.89 Other specified sepsis (principal); J12.82 Pneumonia due to coronavirus disease 2019; U07.1 COVID-19; N39.0 Urinary tract infection, site not specified; I48.20 Chronic atrial fibrillation, unspecified; I10 Essential (primary) hypertension; E78.5 Hyperlipidemia, unspecified; F03.90 Unspecified dementia, unspecified severity, without behavioral disturbance, psychotic disturbance, mood disturbance, and anxiety; Z87.891 Personal history of nicotine dependence; Z79.01 Long term (current) use of anticoagulants; Z79.82 Long term (current) use of aspirin
CPT/HCPCS: 36415; 71045; 80048; 80053; 81001; 83605; 83735; 83880; 84145; 85025; 85610; 86140; 87040; 87081; 87449; 87637; 87641; 87899; 93970; 96361; 96365; 97161; 99285; A9270; G0378; J0248; J0692; J0696; J1100; J1940; J3370; J7030; J7120

== ENCOUNTER 2023-10-19 06:43 | Outpatient (CLI) | payer MEDICARE, SELFPAY ==
--- NOTE | ~2023-10-19 | XR_ITS ---
Clinical Indication: Pneumonia AP and lateral views of the chest: Comparison: 10/11/2023 Findings: Moderate to large left pleural effusion is present, similar to prior exam. Right lung remai ns clear.. Cardiomediastinal silhouette is stable, with pacemaker device. There is prominence of the aortic arch. Bones and soft tissues are unremarkable. Impression: Moderate to large left pleural effusion, essentially unchanged. Stable cardiomegaly mediastinal silhouette. Aneurysm at the aortic arch is not excluded. Consider [facility] CT as indicated. Reviewed, dictated and finalized at location . GARMENT SEWING MACHINE OPERATOR Impression: Moderate to large left pleural effusion, essentially unchanged. Stable cardiomegaly mediastinal silhouette. Aneurysm at the aortic arch is not excluded. Consider chest CT as indicated.
[2023-10-19 07:25] LABS: Hematocrit 43.4 % (35.0-42.0); Hemoglobin 13.2 g/dL (11.7-13.8); Mean Corpuscular HGB Conc 30.4 g/dL (32.0-36.0); Mean Corpuscular Hemoglobin 28.7 pg (27.0-31.0); Mean Corpuscular Volume 94.3 fL (78.0-102.0); Mean Platelet Volume 10.7 fl (9.2-11.8); Platelet Count Result 369 K/mm3 (150-420); Red Cell Distribution Width 19.9 % (11.6-14.4); White Blood Count 12.1 K/mm3 (4.8-10.8)
[2023-10-19 07:37] LABS: Band Neutrophils Percent 0 % (0-6); Basophils Percent Manual 0 % (0-1); Eosinophils Absolute Manual 0.72 K/mm3 (0.02-0.5); Eosinophils Percent Manual 6 % (1-6); Lymphocytes Absolute Manual 1.45 K/mm3 (1.1-4.5); Lymphocytes Percent Manual 12 % (18-44); Metamyelocytes Percent 0 %; Monocytes Absolute Manual 0.96 K/mm3 (0.1-0.90); Monocytes Percent Manual 8 % (3-9); Myelocytes Percent 3 %; Neutrophils Absolute Manual 8.59 K/mm3 (1.7-7.2); Neutrophils Percent Manual 71 % (46-73); Total Cells Counted 100
[2023-10-19 07:38] LABS: Platelet Estimate Adequate (Adequate)
[2023-10-19 07:48] LABS: Anion Gap 6 mmol/L (8-16); Blood Urea Nitrogen 24 mg/dL (7-18); Calcium 8.7 mg/dL (8.5-10.1); Carbon Dioxide 37 mmol/L (21-32); Chloride 106 mmol/L (98-108); Estimated Glomerular Filt Rate 36; Glucose 80 mg/dL (70-99); NT Pro B Type Natriuretic Pept 981 pg/mL (0-450); Osmolality Calculated 311 mOsm/kg (285-295); Potassium 3.2 mmol/L (3.5-5.1); Sodium 149 mmol/L (136-145)
== END 2023-10-19 06:44 | disposition home or self-care (01) ==
PROVIDERS: PCP Internal Medicine; Visit Provider Internal Medicine
DX: I71.60 Thoracoabdominal aortic aneurysm, without rupture, unspecified (principal); N17.9 Acute kidney failure, unspecified; I10 Essential (primary) hypertension; I48.91 Unspecified atrial fibrillation; J44.9 Chronic obstructive pulmonary disease, unspecified; J18.9 Pneumonia, unspecified organism; I50.9 Heart failure, unspecified
CPT/HCPCS: 36415; 71046; 80048; 83880; 85025

== ENCOUNTER 2023-10-20 12:53 | Outpatient (CLI) | payer MEDICARE, SELFPAY ==
--- NOTE | ~2023-10-20 | CT_ITS ---
EXAMINATION:CT diagnostic chest wo con DATE: 10/20/2023 13:30 INDICATION: Abnormal chest radiograph. TECHNIQUE: Computed tomography (CT) of the chest was performed without intravenous contrast. Automate d exposure control and iterative reconstruction technique were employed. The dose-length product (DLP ) was 336.47 mGy-cm. COMPARISON: CT abdomen and pelvis 03/16/2022, chest 2 views 10/19/2023 FINDINGS: There is a large left pleural effusion. The lungs demonstrate diffuse septal thickening. Th ere are scattered nodules in the lungs measuring up to 7 mm, worsened from 03/16/2022. There are nodul es in the thyroid measuring up to 14 mm, likely not clinically significant. The heart size is normal. There are coronary artery calcifications. There is a left chest wall pacer with leads in the right a trium and right ventricle. The aorta measures 4.6 cm in the mid ascending aorta, 5.6 cm in the aortic arch, and 5.4 cm in the descending aorta. There is severe cervical and thoracic spondylosis. IMPRESSION: 1. Large left pleural effusion. 2. Pulmonary nodules measuring up to 7 mm, worsened from 03/16/2022. These findings may be infection o r metastatic disease. 3. Chronic interstitial lung disease. 4. Fusiform aneurysm of thoracic aorta. Reviewed, dictated and finalized at location [facility]. [facility] IMPRESSION: 1. Large left pleural effusion. 2. Pulmonary nodules measuring up to 7 mm, worsened from 03/16/2022. These findi ngs may be infection or metastatic disease. 3. Chronic interstitial lung disease. 4. Fusiform aneurysm of thoracic aorta.
== END 2023-10-20 12:54 | disposition home or self-care (01) ==
PROVIDERS: PCP Internal Medicine; Visit Provider Internal Medicine
DX: R91.8 Other nonspecific abnormal finding of lung field (principal); J90 Pleural effusion, not elsewhere classified; J84.9 Interstitial pulmonary disease, unspecified; I71.20 Thoracic aortic aneurysm, without rupture, unspecified
CPT/HCPCS: 71250

== ENCOUNTER 2023-10-23 11:20 | Emergency (ER) | payer MEDICARE, SELFPAY ==
[2023-10-23] VITALS (23 sets, daily range): BP systolic 59–104; BP diastolic 38–69; PULSE 97–124; RESP 16–42; TEMP 36.6; O2SAT 90–100
--- NOTE | ~2023-10-23 | XR_ITS ---
Portable chest x-ray Comparison: 10/19/2023 Clinical History: Hypoxia Findings: Moderate left pleural effusion is unchanged. Right lung remains clear. Cardiomediastinal silhouette is stable, with pacemaker device. Bones and soft tissues are unremarkable. Impression: Stable moderate left pleural effusion. Reviewed, dictated and finalized at location . HELPER Impression: Stable moderate left pleural effusion.
--- NOTE | 2023-10-23 11:33 | ECG_ITS ---
Measurements Intervals [place] Rate: 118 P: NV: 0 QRS: 9 QRSD: 87 T: 61 QT: 309 QTc: 434 Interpretive Statements ATRIAL FIBRILLATION WITH RAPID VENTRICULAR RESPONSE LOW QRS VOLTAGE IN PRECORDIAL LEADS [QRS DEFLECTION < 1.0 mV IN CHEST LEADS] ANTERIOR MYOCARDIAL INFARCTION , OF INDETERMINATE AGE [40+ ms Q WAVE AND/OR ST/T ABNORMALITY IN V3/V4] ABNORMAL ECG COMPARED TO ECG 12/12/2022 11:52:17 ATRIAL FIBRILLATION REPLACES ELECTRONIC ATRIAL PACED RHYTHM LOSS OF R-WAVE VOLTAGE IN THE PRECORDIAL LEADS SUGGEST INTERVAL WA Electronically Signed On 10-23-2023 15:35:48 BIOMEDICAL INSTRUMENT TECHNICIAN by Earl Boston M.D.
--- NOTE | 2023-10-23 11:59 | ED.GENADULT ---
HPI - General Adult General Chief complaint: Unspecified Stated complaint: abnormal chest xray/fluid on lungs Time Seen by Provider: 10/23/23 11:24 History of Present Illness HPI narrative: 87 yo F with history of advanced dementia, bed bound, failure to thrive, Afib, who was recently discharged from the hospital for COVID PNA, presents to ED from the skilled nursing due to hypoxia. Pt's O2 sat was in the low 80s% on room air measured by skilled nursing staff. Sat improved to high 90s% on 2L O2 by nasal cannula. Pt is AOx1 at baseline. Of note, her PCP just ordered CT scan of the chest due to failure to thrive and showed large left pleural effusion (unchanged from 10/11/23) and did not respond to Lasix. Also Ct scan showed 7 mm new pulmonary nodule suspicious for primary or metastatic malignancy. Related Data Home Medications Medication Instructions Recorded Confirmed bupropion HCl 100 mg tablet,12 hr 100 mg PO BID 04/28/21 10/23/23 sustained-release metoprolol tartrate 25 mg tablet 25 mg PO BID 04/28/21 10/23/23 multivitamin with minerals-folic 1 tablet PO DAILY 04/28/21 10/23/23 acid 0.4 mg tablet (Adult One Daily Multivitamin) primidone 50 mg tablet 50 mg PO HS 04/28/21 10/23/23 rosuvastatin 10 mg tablet 10 mg PO DAILY 04/28/21 10/23/23 apixaban 5 mg tablet (Eliquis) 5 mg PO BID 03/21/22 10/23/23 aspirin 81 mg chewable tablet 81 mg PO DAILY 03/21/22 10/23/23 bisacodyl 10 mg rectal suppository 10 mg RECTAL DAILY PRN Constipation 03/21/22 10/23/23 docusate sodium 100 mg capsule 100 mg PO BID 03/21/22 10/23/23 (Colace) risperidone 0.5 mg tablet 0.5 mg PO BID 12/12/22 10/23/23 ascorbic acid (vitamin C) 500 mg 500 mg PO DAILY 10/23/23 10/23/23 tablet ergocalciferol (vitamin D2) 400 400 unit PO DAILY 10/23/23 10/23/23 unit capsule Allergies Allergy/AdvReac Type Severity Reaction Status Date / Time No Known Allergies Allergy Verified 10/10/23 17:28 Review of Systems Review of Systems: ROS unobtainable: Yes unobtainable due to medical condition and unobtainable due to mental status [facility] Past Medical History Medical History (Updated 10/23/23 @ 14:26 by Daljit Fowler MD) Afib 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 COPD (chronic obstructive pulmonary disease) Dementia HLD (hyperlipidemia) HTN (hypertension) Social History Social History Smoking packs per day: 1 Smoking cigarettes per day: 20.0 Years smoked: 30 Smoking pack-years: 30.00 Smoking status: Unknown if ever smoked Tobacco type: cigarettes Second hand tobacco smoke exposure: No Smoking end date: 05/20/16 Alcohol intake: unknown Drinks per week: 6 Substance use: unknown Substance use type: does not use Lack of Transportation: No Lack of Food: Never True Current Housing: I Have Housing Concerned About Future Housing: No Difficulty Paying Gas/Electric Bills: No Difficulty Paying for Meds: No Currently Unemployed: No Education: High School Diploma/GED Difficulty w/ Childcare or Family Care: No Living arrangements: skilled nursing Gender identity (if verbalized by the patient): Female Spiritual care concerns: No Exam Const: General: no acute distress, ill appearing and obese Orientation/consciousness: Other orientation findings Other: AOx1 (baseline), arousable HENMT: Head: normal to inspection Face/Nose/Sinus: Normal external nose present Face and sinus: normal facial exam Mouth: Yes dry mucous membranes Chest: Chest palpation & inspection: normal inspection of the chest and normal palpation of entire chest wall Resp: Effort & Inspection: respiratory distress and tachypneic Auscultation: crackles Cardio: Rate: tachycardic Rhythm: abnormal rhythm Heart sounds: S1 normal heart sound present and S2 normal heart sound present GI: Inspection: normal to inspection Skin: General skin exam: normal color and no rashes or lesion
[2023-10-23 12:15] LABS: Hemoglobin 11.6 g/dL (11.7-13.8); Mean Corpuscular HGB Conc 29.7 g/dL (32.0-36.0); Mean Corpuscular Hemoglobin 28.4 pg (27.0-31.0); Mean Corpuscular Volume 95.6 fL (78.0-102.0); Mean Platelet Volume 10.6 fl (9.2-11.8); Platelet Count Result 301 K/mm3 (150-420); Red Blood Count 4.08 M/mm3 (4.20-5.40); Red Cell Distribution Width 20.6 % (11.6-14.4); White Blood Count 13.4 K/mm3 (4.8-10.8)
[2023-10-23 12:42] LABS: Alanine Aminotransferase 21 U/L (14-59); Albumin Level 2.2 g/dL (3.4-5.0); Alkaline Phosphatase 46 U/L (46-116); Anion Gap 8 mmol/L (8-16); Aspartate Amino Transferase 19 U/L (15-37); Bilirubin,Total 0.7 mg/dL (0.00-1.00); Blood Urea Nitrogen 29 mg/dL (7-18); Calcium 8.4 mg/dL (8.5-10.1); Carbon Dioxide 33 mmol/L (21-32); Chloride 112 mmol/L (98-108); Estimated Glomerular Filt Rate 27; Glucose 111 mg/dL (70-99); Osmolality Calculated 322 mOsm/kg (285-295); Sodium 153 mmol/L (136-145); Total Protein 6.2 g/dL (6.4-8.2); Troponin I 56.8 ng/L (0.00-60.4)
[2023-10-23 12:43] LABS: NT Pro B Type Natriuretic Pept 782 pg/mL (0-450)
--- NOTE | 2023-10-23 14:12 | PCCCNOTE ---
Went to pt room in ED and spoke to pt's daughter Diane and pt's sister. Diane states they want to proceed with comfort measures and is agreeable to return to the assisted with hospice. Answered questions about hospice and assisted care. Spoke to Eda from [facility] and she states to send hospice consult order to her and she will notify the company. List of hospice providers provided to family. Diane agreeable to have assisted contact [facility], Eda notified of same. Regina was awake during conversation but did not attempt to join conversation or decision making.
== END 2023-10-23 14:46 | disposition hospice, home (50) ==
PROVIDERS: Emergency Provider Emergency Medicine; PCP Internal Medicine
DX: I48.20 Chronic atrial fibrillation, unspecified (principal); I95.9 Hypotension, unspecified; J96.01 Acute respiratory failure with hypoxia; J81.1 Chronic pulmonary edema; J44.9 Chronic obstructive pulmonary disease, unspecified; E78.5 Hyperlipidemia, unspecified; I10 Essential (primary) hypertension; F03.90 Unspecified dementia, unspecified severity, without behavioral disturbance, psychotic disturbance, mood disturbance, and anxiety; F17.210 Nicotine dependence, cigarettes, uncomplicated; Z79.01 Long term (current) use of anticoagulants; Z79.899 Other long term (current) drug therapy; Z79.82 Long term (current) use of aspirin
CPT/HCPCS: 36415; 71045; 80053; 83880; 84484; 85027; 93005; 99284